=== PATIENT | female | born 1945 | race Caucasian/White ===

== ENCOUNTER 2020-01-20 11:54 | Outpatient (CLI) | payer OTHER, MEDICARE, SELFPAY ==
--- NOTE | ~2020-01-20 | XR_ITS ---
XR forearm RT 2V DATE: 01/20/2020 13:11 INDICATION: Injury, pain TECHNIQUE: AP and lateral views COMPARISON: None FINDINGS: There are osteoarthritic changes at the elbow joint. No fracture or dislocation, periosteal reaction or bone destruction of the radius or ulna is detected. There is osteoarthritis at the first carpometacarpal joint. IMPRESSION: Osteoarthritis of the elbow joint No fracture or dislocation of the forearm Reviewed, dictated and finalized at location B.
--- NOTE | ~2020-01-20 | XR_ITS ---
XR elbow RT min 3V DATE: 01/20/2020 13:11 INDICATION: Right elbow injury, pain TECHNIQUE: 4 views COMPARISON: None FINDINGS: There is elevation of the anterior and posterior fat pads consistent with joint effusion. There is osteoarthritic change at the elbow joint. No recent fracture or any dislocation is detected. IMPRESSION: Elbow joint effusion; no apparent recent fracture Osteoarthritis Reviewed, dictated and finalized at location B.
== END 2020-01-20 11:55 | disposition home or self-care (01) ==
PROVIDERS: PCP Family Medicine; Visit Provider Family Medicine
DX: S49.90XA Unspecified injury of shoulder and upper arm, unspecified arm, initial encounter (principal); X58.XXXA Exposure to other specified factors, initial encounter; M19.021 Primary osteoarthritis, right elbow
CPT/HCPCS: 73080; 73090

== ENCOUNTER 2020-07-02 09:06 | Outpatient (CLI) | payer MEDICARE, SELFPAY ==
[2020-07-02 09:35] LABS: Basophils Absolute Auto 0.1 K/mm3 (0.0-0.1); Basophils Percent Auto 0.6 % (0.2-1.2); Eosinophils Absolute Auto 0.2 K/mm3 (0-0.3); Eosinophils Percent Auto 1.8 % (0-4.4); Hematocrit 38.7 % (37.0-47.0); Hemoglobin 12.5 g/dL (12.0-15.0); Immature Granulocyte Absolute 0.02 K/mm3 (0.00-0.031); Immature Granulocyte Percent A 0.2 % (0-0.5); Lymphocytes Absolute Auto 2.02 K/mm3 (0.9-3.2); Lymphocytes Percent Auto 23.6 % (18.3-44.2); Mean Corpuscular HGB Conc 32.3 g/dl (32-36); Mean Corpuscular Hemoglobin 30.9 pg (26-34); Mean Corpuscular Volume 95.8 fl (80-100); Mean Platelet Volume 9.2 fl (7.4-10.4); Monocytes Absolute Auto 0.8 K/mm3 (0.1-0.6); Monocytes Percent Auto 9.3 % (2.6-8.5); Neutrophils Absolute Auto 5.5 K/mm3 (1.3-6.7); Neutrophils Percent Auto 64.5 % (45.5-73.1); Platelet Count Result 235 k/mm3 (150-375); Red Blood Count 4.04 M/mm3 (4.2-5.4); Red Cell Distribution Width 13.6 % (11.5-14.5); White Blood Count 8.6 K/mm3 (4.5-10.0)
[2020-07-02 09:48] LABS: Alanine Aminotransferase 18 U/L (4-35); Albumin Level 4.2 g/dL (3.5-5.1); Alkaline Phosphatase 71 U/L (38-126); Anion Gap 7 mmol/L (8-16); Aspartate Amino Transferase 33 U/L (14-36); Bilirubin,Total 0.9 mg/dL (0.2-1.3); Blood Urea Nitrogen 20 mg/dL (7-17); Calcium 9.5 mg/dL (8.4-10.2); Carbon Dioxide 28 mmol/L (22-30); Chloride 103 mmol/L (98-107); Estimated Glomerular Filt Rate 54; Glucose 109 mg/dL (65-105); Potassium 4.4 mmol/L (3.4-5.0); Sodium 138 mmol/L (137-145)
[2020-07-02 10:18] LABS: Total Triiodothyronine (T3) 0.83 NG/ML (0.97-1.69)
[2020-07-02 10:32] LABS: Free T4 Free Thyroxine 1.13 ng/mL (0.78-2.19)
== END 2020-07-02 09:07 | disposition home or self-care (01) ==
PROVIDERS: PCP Family Medicine; Visit Provider Family Medicine
DX: E03.9 Hypothyroidism, unspecified (principal); I10 Essential (primary) hypertension
CPT/HCPCS: 36415; 80053; 84439; 84443; 84480; 85025

== ENCOUNTER 2020-08-26 08:23 | Outpatient (CLI) | payer MEDICARE, SELFPAY ==
--- NOTE | ~2020-08-26 | XR_ITS ---
EXAMINATION:XR cervical spine 4-5V DATE: 08/26/2020 08:52 INDICATION: Neck pain TECHNIQUE: AP, lateral, lateral swimmers and odontoid views of the cervical spine are provided. COMPARISON: 08/09/2016 FINDINGS: There is 1 mm of anterolisthesis of C4 on C5. The odontoid is intact. No fracture is identi fied. The vertebral body heights are normal. There is mild loss of intervertebral disc space height a t C5-6. Small degenerative osteophytes project from the anterior endplates of multiple vertebral bodi es. There is moderate facet and uncovertebral joint osteoarthritis. Prevertebral soft tissues are nor mal. IMPRESSION: 1. Mild cervical spondylosis without acute findings or significant interval change. Reviewed, dictated and finalized at location A. IMPRESSION: 1. Mild cervical spondylosis without acute findings or significant interval mariam nge.
== END 2020-08-26 08:24 | disposition home or self-care (01) ==
LOC: ANHIMG 08:26
PROVIDERS: PCP Family Medicine; Visit Provider Family Medicine
DX: M47.22 Other spondylosis with radiculopathy, cervical region (principal)
CPT/HCPCS: 72050

== ENCOUNTER 2020-10-07 10:34 | Outpatient (CLI) | payer MEDICARE, SELFPAY ==
--- NOTE | 2020-10-07 12:00 | NEURO_ITS ---
Impression: # Complains of right forearm discomfort. # No Carpal Tunnel Syndrome or ulnar neuropathy. # Normal Nerve Conduction Study. # Normal needle/EMG exam. # Clinical correlation recommended; Findings could be suggestive of supracarpal tunnel median neuropathy. Nerve Conduction Studies Anti Sensory Summary Table Stim Site NR Peak (ms) P-T Amp (?V) Site1 Site2 Delta-P (ms) Dist (cm) Jonathan (m/s) Right Median Anti Sensory (2-3nd Digit) Wrist 3.9 46.9 Wrist 2-3nd Digit 3.9 14.0 36 Wrist 3.8 51.6 Wrist 2-3nd Digit 3.9 14.0 36 Right Radial Anti Sensory (Base 1st Digit) Wrist 2.9 23.9 Wrist Base 1st Digit 2.9 0.0 Right Ulnar Anti Sensory (5th Digit) Wrist 2.7 78.8 Wrist 5th Digit 2.7 14.0 52 Motor Summary Table Stim Site NR Onset (ms) O-P Amp (mV) Site1 Site2 Delta-0 (ms) Dist (cm) Jonathan (m/s) Right Median Motor (Abd Poll Brev) Wrist 3.7 6.0 Elbow Wrist 5.1 28.0 55 Elbow 8.8 5.8 Right Ulnar Motor (Abd Dig Minimi) Wrist 3.0 4.9 A Elbow Wrist 4.8 27.0 56 A Elbow 7.8 4.6 F Wave Studies NR F-Lat (ms) L-R F-Lat (ms) Right Median (Mrkrs) (Abd Poll Brev) 29.59 Right Ulnar (Mrkrs) (Abd Dig Min) 28.89 EMG Side Muscle Nerve Root Ins Act Fibs Amp Dur Recrt Comment Right 1stDorInt Ulnar C8-T1 Nml Nml Nml Nml Nml Right Ext Indicis Radial (Post Int) C7-8 Nml Nml Nml Nml Nml Right Ext Digitorum Radial (Post Int) C7-8 Nml Nml Nml Nml Nml Right BrachioRad Radial C5-6 Nml Nml Nml Nml Nml Right PronatorTeres Median C6-7 Nml Nml Nml Nml Nml Right Abd Poll Brev Median C8-T1 Nml Nml Nml Nml Nml MTDD
== END 2020-10-07 10:35 | disposition home or self-care (01) ==
PROVIDERS: PCP Family Medicine; Visit Provider Family Medicine
DX: S59.901D Unspecified injury of right elbow, subsequent encounter (principal); M79.631 Pain in right forearm
CPT/HCPCS: 95886; 95909

== ENCOUNTER 2020-10-24 20:29 | Emergency (ER) | payer MEDICARE, SELFPAY ==
[2020-10-24] VITALS (10 sets, daily range): BP systolic 136–207; BP diastolic 75–95; PULSE 60–96; RESP 14–21; TEMP 36.6–36.7; O2SAT 93–99
--- NOTE | ~2020-10-24 | XR_ITS ---
EXAMINATION: XR chest 2V EXAM DATE: 10/24/2020 21:22 INDICATION: Hypertension, coronary artery disease. TECHNIQUE: Frontal and lateral projections of the chest obtained and reviewed. Comparison is made to prior examination from 09/11/2009. FINDINGS: There is left costophrenic abnormal reticulation without confluent consolidation. Uncertain whether or not this is an acute interstitial type pneumonia, or chronic. No other regions of the dang g appear like this, and prior study from 2009 was unremarkable. There are no pleural effusions. The cardiomediastinal silhouette is within normal limits. There is no pneumothorax suspected. There are moderate-sized bridging mid to lower thoracic endplate osteophytes, diffuse idiopathic skeletal hype rostosis. IMPRESSION: Left costophrenic sulcus abnormal reticulation, acute versus chronic finding. Reviewed, dictated and finalized at location G. IMPRESSION: Left costophrenic sulcus abnormal reticulation, acute versus chroni c finding.
--- NOTE | 2020-10-24 20:34 | ECG_ITS ---
Measurements Intervals [place] Rate: 63 P: 3 AL: 212 QRS: -18 QRSD: 111 T: 15 QT: 387 QTc: 398 Interpretive Statements SINUS RHYTHM WITH FIRST DEGREE AV BLOCK INTRAVENTRICULAR CONDUCTION DELAY DELAYED PRECORDIAL R/S TRANSITION VOLTAGE CRITERIA FOR LVH BASELINE ARTIFACT- I, II, III, AVR, AVL, AVF, V6 ABNORMAL ECG Electronically Signed On 10-24-2020 21:18:46 CDT by Deejay Stokes D.O.
[2020-10-24 21:30] LABS: Basophils Percent Auto 0.2 % (0.2-1.2); Eosinophils Absolute Auto 0.1 K/mm3 (0-0.3); Hematocrit 37.5 % (37.0-47.0); Hemoglobin 12.8 g/dL (12.0-15.0); Immature Granulocyte Absolute 0.02 K/mm3 (0.00-0.031); Immature Granulocyte Percent A 0.2 % (0-0.5); Lymphocytes Absolute Auto 2.35 K/mm3 (0.9-3.2); Lymphocytes Percent Auto 27.1 % (18.3-44.2); Mean Corpuscular HGB Conc 34.1 g/dl (32-36); Mean Corpuscular Hemoglobin 31.2 pg (26-34); Mean Corpuscular Volume 91.5 fl (80-100); Mean Platelet Volume 8.3 fl (7.4-10.4); Monocytes Percent Auto 11.1 % (2.6-8.5); Neutrophils Absolute Auto 5.2 K/mm3 (1.3-6.7); Neutrophils Percent Auto 60.4 % (45.5-73.1); Platelet Count Result 251 k/mm3 (150-375); Red Cell Distribution Width 12.2 % (11.5-14.5); White Blood Count 8.7 K/mm3 (4.5-10.0)
[2020-10-24 21:40] LABS: Anion Gap 8 mmol/L (8-16); Blood Urea Nitrogen 20 mg/dL (7-17); Calcium 9.3 mg/dL (8.4-10.2); Carbon Dioxide 28 mmol/L (22-30); Chloride 88 mmol/L (98-107); Estimated Glomerular Filt Rate 48; Glucose 118 mg/dL (65-105); Sodium 124 mmol/L (137-145)
[2020-10-24 22:08] LABS: Add Urine Microscopic? YES; Appearance Urine Clear (Clear); Bacteria Urine Trace /hpf; Bilirubin Urine Negative (Negative); Blood Urine 1+ (Negative); Color Urine Straw (Yellow); Glucose Urine UA Negative (Negative); Ketones Urine Negative (Negative); Leukocyte Esterase Ur 1+ LEU/UL (Negative); Nitrate Urine Negative (Negative); Protein Urine 1+ mg/dL (Negative); RBC Urine 0-2 /hpf (0-2); Specific Grav Ur 1.006 (1.001-1.035); Squamous Epithelial Cell Urine Occasional /hpf (Few); Urobilinogen Urine Negative mg/dL (<2.0)
--- NOTE | 2020-10-24 23:10 | ED.GENADULT ---
HPI - General Adult General Chief complaint: Recheck/Abnormal Lab/Rx Stated complaint: htn Time Seen by Provider: 10/24/20 20:31 History of Present Illness HPI narrative: Patient is a 75-year-old female who presents to the ER with complaint of feeling fuzzy in the head. She reports has been ongoing for 3 weeks. No aggravating or alleviating factors. She is also noted today that her blood pressure has been elevated. She takes carvedilol as well as irbesartan with HCTZ. She reports compliance to medication. No chest pain or chest pressure. No loss of consciousness or focal weakness in arm or leg. Reports sometimes she has difficulty remembering things when filling out paperwork since the fuzziness started. Related Data Home Medications Medication Instructions Recorded Confirmed aspirin 81 mg tablet,delayed 81 mg PO DAILY 04/18/19 10/12/20 release cholecalciferol (vitamin D3) 50 2,000 unit PO DAILY 04/18/19 10/12/20 mcg (2,000 unit) tablet blood sugar diagnostic #10 ea 03/24/20 10/12/20 Allergies Allergy/AdvReac Type Severity Reaction Status Date / Time No Known Allergies Allergy Verified 10/24/20 20:36 Review of Systems Review of Systems: All systems reviewed & are unremarkable except as noted in HPI and below Constitutional: Constitutional: Denies chills, Denies fever(s) and Denies weakness ENT: Denies nasal congestion and Denies sore throat Cardiovascular: Cardiovascular: Denies chest pain and Denies radiating jaw, neck or arm pain Respiratory: Respiratory: Denies cough and Denies dyspnea Neurologic: Denies syncope, Denies focal weakness and Denies numbness [facility] Past Medical History Medical History (Updated 10/24/20 @ 23:14 by Destin Martinez MD) Benign essential HTN Biceps rupture, proximal CAD (coronary artery disease) Chronic insomnia 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 KWADWO (generalized anxiety disorder) Hypothyroidism, unspecified Kidney stones Lateral epicondylitis of right elbow Left knee pain Neck pain Rectal bleeding Upper respiratory infection Surgical History Surgical History H/O partial nephrectomy H/O Spinal surgery History of appendectomy History of total knee arthroplasty Hx of tonsillectomy Family History Family History Sibling Hypertension Family history of diabetes mellitus in first degree relative Other Family history of kidney disease Social History Social History Social History: Second hand tobacco smoke exposure: No Alcohol intake: never Substance use: never Substance use type: does not use Gender identity (if verbalized by the patient): Female Exam Narrative: Exam Narrative: GENERAL: Well-appearing, well-nourished, and in no acute distress. HEAD: Normocephalic, atraumatic ENT: Mucous membranes moist. CHEST: Clear to auscultation. No respiratory distress. HEART: Regular rate and rhythm. Normal peripheral pulses. ABDOMEN: Soft, nontender, nondistended. EXTREMITIES: Normal range of motion. No edema. SKIN: Warm, dry, no rash. NEURO: No focal deficits. Alert and oriented x3. PSYCH: Normal mood and affect. Course Course Emergency Course: Unremarkable evaluation. Blood pressure normalized while in the ER. Discharge home. Vital Signs Vital signs: Vital Signs Temperature 98.0 F 10/24/20 20:27 Pulse Rate 67 10/24/20 20:27 Respiratory Rate 20 10/24/20 20:27 Pulse Oximetry 96 10/24/20 20:27 Temperature 98.0 F 10/24/20 20:33 Pulse Rate 61 10/24/20 22:31 Respiratory Rate 19 10/24/20 22:31 Blood Pressure 159/79 H 10/24/20 22:31 Pulse Oximetry 97 10/24/20 22:31 Medical Decision Making Vital Signs Vital Signs: Vital Signs Temperature 98.0 F 10/24/20 20:27 Pulse Rate 67 10/24/20 20:27 Res
== END 2020-10-25 00:02 | disposition home or self-care (01) ==
PROVIDERS: Emergency Provider Emergency Medicine; PCP Family Medicine
DX: I10 Essential (primary) hypertension (principal); I25.10 Atherosclerotic heart disease of native coronary artery without angina pectoris; E03.9 Hypothyroidism, unspecified; Z79.82 Long term (current) use of aspirin
CPT/HCPCS: 36415; 71046; 80048; 81001; 85025; 93005; 99283

== ENCOUNTER 2020-11-10 11:37 | Outpatient (CLI) | payer MEDICARE, SELFPAY ==
[2020-11-10 12:35] LABS: Anion Gap 6 mmol/L (8-16); Blood Urea Nitrogen 24 mg/dL (7-17); Calcium 9.5 mg/dL (8.4-10.2); Carbon Dioxide 28 mmol/L (22-30); Chloride 95 mmol/L (98-107); Estimated Glomerular Filt Rate 44; Glucose 117 mg/dL (65-110); Potassium 4.8 mmol/L (3.4-5.0); Sodium 129 mmol/L (137-145)
== END 2020-11-10 11:38 | disposition home or self-care (01) ==
PROVIDERS: PCP Family Medicine; Visit Provider Family Medicine
DX: E87.1 Hypo-osmolality and hyponatremia (principal)
CPT/HCPCS: 36415; 80048

== ENCOUNTER 2020-11-23 10:22 | Outpatient (CLI) | payer MEDICARE, SELFPAY ==
[2020-11-23 11:07] LABS: Anion Gap 9 mmol/L (8-16); Blood Urea Nitrogen 26 mg/dL (7-17); Calcium 9.5 mg/dL (8.4-10.2); Carbon Dioxide 24 mmol/L (22-30); Chloride 105 mmol/L (98-107); Estimated Glomerular Filt Rate 44; Glucose 104 mg/dL (65-110); Potassium 4.8 mmol/L (3.4-5.0); Sodium 138 mmol/L (137-145)
[2020-11-23 12:16] LABS: Sodium Urine Random 47 meq/L
== END 2020-11-23 10:23 | disposition home or self-care (01) ==
PROVIDERS: Physician Assistant; PCP Family Medicine; Visit Provider Family Medicine
DX: E87.1 Hypo-osmolality and hyponatremia (principal)
CPT/HCPCS: 36415; 80048; 84300

== ENCOUNTER → 2020-12-03 16:08 | Outpatient (CLI) | payer MEDICARE, SELFPAY ==
--- NOTE | ~2020-12-03 | MR_ITS ---
EXAMINATION: MR cervical spine wo con DATE: 12/03/2020 17:36 INDICATION: Cervicalgia TECHNIQUE: Magnetic resonance imaging (MRI) of the cervical spine was performed without intravenous c ontrast. Sequences included sagittal T2-weighted FSE, sagittal T2-weighted FS FSE, sagittal T1-weight ed FSE, axial MERGE and axial T2-weighted FSE. COMPARISON: None FINDINGS: Straightening of the normal cervical lordosis. Vertebral body heights are normal. Bone marrow signa l intensity is normal. Mild disc height loss at C5-C6. There are anterior endplate osteophytes throug hout the cervical spine. Cord signal intensity is normal. Cervical soft tissues unremarkable. The fol lowing disc levels are specifically discussed: C2-C3: The disc does not extend beyond the endplate margin. There is no uncovertebral joint osteoarth ritis. There is mild right and severe left facet joint osteoarthritis. There is mild left neural fora pia stenosis. There is no central canal stenosis. C3-C4: The disc does not extend beyond the endplate margin. There is mild right uncovertebral joint o steoarthritis. There is old right and moderate left facet joint osteoarthritis. There is mild left ne ural foraminal stenosis. There is no central canal stenosis. C4-C5: The disc does not extend beyond the endplate margin. There is mild bilateral uncovertebral maeve nt osteoarthritis. There is mild to moderate right and severe left facet joint osteoarthritis. There is mild left neural foraminal stenosis. There is no central canal stenosis. C5-C6: Disc is mildly bulging. There is moderate right and severe left uncovertebral joint osteoarthr itis. There is moderate bilateral facet joint osteoarthritis. There is mild right and mild to moderat e left neural foraminal stenosis. There is mild central canal stenosis. C6-C7: Disc is mildly bulging. There is moderate bilateral uncovertebral joint osteoarthritis. There is mild bilateral facet joint osteoarthritis. There is no neural foraminal stenosis. There is mild ce ntral canal stenosis. C7-T1: The disc does not extend beyond the endplate margin. There is no uncovertebral joint osteoarth ritis. There is mild left and moderate right facet joint osteoarthritis. There is mild right neural f oraminal stenosis. There is no central canal stenosis. IMPRESSION: 1. Mild to moderate cervical spondylosis. Reviewed, dictated and finalized at location A.
== END ==
PROVIDERS: Visit Provider Nurse Practitioner Family
DX: M47.813 Spondylosis without myelopathy or radiculopathy, cervicothoracic region (principal); M48.03 Spinal stenosis, cervicothoracic region
CPT/HCPCS: 72141

== ENCOUNTER 2021-02-10 09:56 | Outpatient (CLI) | payer MEDICARE, SELFPAY ==
--- NOTE | ~2021-02-10 | US_ITS ---
EXAMINATION: US carotid duplex BI DATE: 02/10/2021 10:25 INDICATION: Dizziness and giddiness TECHNIQUE: Grayscale, color Doppler, and pulsed Doppler images of the cervical carotid arteries were obtained. The degree of vessel stenosis is placed in one of the following categories: normal, <50%, 5 0-69%, >=70% but less than near-occlusion, near-occlusion, or total occlusion. Note that percent sten osis relative to normal distal artery lumen diameter is indirectly measured from velocity measurement s as described by Nico, et al. Radiology 2003; 229:340-346. Notes: Normal: Peak systolic velocity <125 centimeters/sec and no plaque <50%. Peak systolic velocity <125 ( EDV <40; ICA/CCA PSV ratio <2.0; used these factors only a tandem lesions or low cardiac output or co ntralateral disease) 50-69 %: PSV 125-230 (EDV 40-100; ratio 2-4) >= 70% but less than near occlusion: PSV greater than 230 (EDV > 100; ratio> 4.0) Near Occlusion: PSV that is variable; markedly narrowed lumen Occlusion: Absent flow on color/spectral Doppler and no lumen on min scale. COMPARISON: None. FINDINGS: RIGHT: The right common carotid artery (CCA) peak systolic velocity (PSV) is 77 cm/s. The right internal car otid artery (ICA) PSV is 73 cm/s. The right ICA end-diastolic velocity (EDV) is 25 cm/s. The right IC A/CCA PSV ratio is 0.9. The external carotid artery (ECA) PSV is 52 cm/s. There is antegrade flow in the right vertebral artery. LEFT: The left CCA PSV is 60 cm/s. The left ICA PSV is 53 cm/s. The left ICA EDV is 22 cm/s. The left ICA/C CA PSV ratio is 0.9. The ECA PSV is 62 cm/s. There is antegrade flow in the left vertebral artery. IMPRESSION: 1. Less than 50% stenosis in the right internal carotid artery by sonographic criteria. 2. Less than 50% stenosis in the left internal carotid artery by sonographic criteria. Reviewed, dictated and finalized at location B. IMPRESSION: 1. Less than 50% stenosis in the right internal carotid artery by sonographic c yosvany. 2. Less than 50% stenosis in the left internal carotid artery by sonographic cr elsa.
== END 2021-02-10 09:57 | disposition home or self-care (01) ==
LOC: ANHIMG 09:58
PROVIDERS: PCP Family Medicine; Visit Provider Family Medicine
DX: R09.89 Other specified symptoms and signs involving the circulatory and respiratory systems (principal); R42 Dizziness and giddiness; I65.23 Occlusion and stenosis of bilateral carotid arteries
CPT/HCPCS: 93880

== ENCOUNTER 2021-07-10 07:09 | Outpatient (CLI) | payer MEDICARE, SELFPAY ==
[2021-07-10 07:28] LABS: Basophils Percent Auto 0.6 % (0.2-1.2); Eosinophils Absolute Auto 0.1 K/mm3 (0-0.3); Hematocrit 39.8 % (37.0-47.0); Hemoglobin 12.7 g/dL (12.0-15.0); Immature Granulocyte Absolute 0.02 K/mm3 (0.00-0.031); Immature Granulocyte Percent A 0.3 % (0-0.5); Lymphocytes Absolute Auto 1.66 K/mm3 (0.9-3.2); Lymphocytes Percent Auto 25.7 % (18.3-44.2); Mean Corpuscular HGB Conc 31.9 g/dl (32-36); Mean Corpuscular Hemoglobin 30.8 pg (26-34); Mean Corpuscular Volume 96.6 fl (80-100); Mean Platelet Volume 8.7 fl (7.4-10.4); Monocytes Absolute Auto 0.6 K/mm3 (0.1-0.6); Monocytes Percent Auto 9.1 % (2.6-8.5); Neutrophils Percent Auto 62.3 % (45.5-73.1); Platelet Count Result 248 k/mm3 (150-375); Red Blood Count 4.12 M/mm3 (4.2-5.4); Red Cell Distribution Width 13.3 % (11.5-14.5); White Blood Count 6.5 K/mm3 (4.5-10.0)
[2021-07-10 07:43] LABS: Alanine Aminotransferase 17 U/L (4-35); Albumin Level 4.4 g/dL (3.5-5.1); Alkaline Phosphatase 58 U/L (38-126); Anion Gap 6 mmol/L (8-16); Aspartate Amino Transferase 37 U/L (14-36); Bilirubin,Total 0.8 mg/dL (0.2-1.3); Blood Urea Nitrogen 34 mg/dL (7-17); Calcium 9.1 mg/dL (8.4-10.2); Carbon Dioxide 29 mmol/L (22-30); Chloride 100 mmol/L (98-107); Estimated Glomerular Filt Rate 54; Glucose 104 mg/dL (65-110); Potassium 4.2 mmol/L (3.4-5.0); Sodium 135 mmol/L (137-145)
[2021-07-10 08:11] LABS: Total Triiodothyronine (T3) 0.84 NG/ML (0.97-1.69)
[2021-07-10 08:15] LABS: Free T4 Free Thyroxine 1.15 ng/mL (0.78-2.19)
== END 2021-07-10 07:10 | disposition home or self-care (01) ==
LOC: ANHLAB 07:12
PROVIDERS: PCP Family Medicine; Visit Provider Nurse Practitioner Gerontology
DX: J06.9 Acute upper respiratory infection, unspecified (principal); I10 Essential (primary) hypertension; D64.9 Anemia, unspecified
CPT/HCPCS: 36415; 80053; 84439; 84443; 84480; 85025

== ENCOUNTER 2021-08-06 07:00 | Outpatient (CLI) | payer MEDICARE, SELFPAY ==
[2021-08-06 07:42] LABS: Alanine Aminotransferase 15 U/L (4-35); Albumin Level 4.4 g/dL (3.5-5.1); Alkaline Phosphatase 61 U/L (38-126); Anion Gap 7 mmol/L (8-16); Aspartate Amino Transferase 32 U/L (14-36); Bilirubin,Total 0.6 mg/dL (0.2-1.3); Blood Urea Nitrogen 33 mg/dL (7-17); Calcium 9.3 mg/dL (8.4-10.2); Carbon Dioxide 28 mmol/L (22-30); Chloride 101 mmol/L (98-107); Estimated Glomerular Filt Rate 54; Glucose 103 mg/dL (65-110); Potassium 4.1 mmol/L (3.4-5.0); Sodium 136 mmol/L (137-145)
[2021-08-06 08:13] LABS: Total Triiodothyronine (T3) 0.84 NG/ML (0.97-1.69)
== END 2021-08-06 07:01 | disposition home or self-care (01) ==
LOC: ANHLAB 07:01
PROVIDERS: PCP Family Medicine; Visit Provider Nurse Practitioner Gerontology
DX: E03.9 Hypothyroidism, unspecified (principal); N18.32 Chronic kidney disease, stage 3b
CPT/HCPCS: 36415; 80053; 84439; 84443; 84480

== ENCOUNTER 2021-09-03 06:43 | Outpatient (CLI) | payer MEDICARE, SELFPAY ==
[2021-09-03 08:38] LABS: Alanine Aminotransferase 15 U/L (6-35); Albumin Level 4.6 g/dL (3.5-5.1); Alkaline Phosphatase 64 U/L (38-126); Anion Gap 9 mmol/L (8-16); Aspartate Amino Transferase 32 U/L (14-36); Bilirubin,Total 0.9 mg/dL (0.2-1.3); Blood Urea Nitrogen 32 mg/dL (7-17); Calcium 9.4 mg/dL (8.4-10.2); Carbon Dioxide 29 mmol/L (22-30); Chloride 98 mmol/L (98-107); Estimated Glomerular Filt Rate 54; Glucose 95 mg/dL (65-110); Sodium 136 mmol/L (137-145)
[2021-09-03 09:06] LABS: Free T4 Free Thyroxine 1.57 ng/mL (0.78-2.19)
[2021-09-03 09:09] LABS: Total Triiodothyronine (T3) 0.79 NG/ML (0.97-1.69)
[2021-09-07 14:50] LABS: Vitamin D 1,25 (OH)2 Total 28 pg/mL (18-72); Vitamin D2 1,25 (OH)2 <8 pg/mL; Vitamin D3 1,25 (OH)2 28 pg/mL
== END 2021-09-03 06:44 | disposition home or self-care (01) ==
LOC: ANHLAB 06:47
PROVIDERS: PCP Family Medicine; Visit Provider Nurse Practitioner Gerontology
DX: D64.9 Anemia, unspecified (principal); E87.1 Hypo-osmolality and hyponatremia; I10 Essential (primary) hypertension; E03.9 Hypothyroidism, unspecified; E55.9 Vitamin D deficiency, unspecified
CPT/HCPCS: 36415; 80053; 82652; 84439; 84443; 84480

== ENCOUNTER 2021-09-17 14:29 | Outpatient (CLI) | payer MEDICARE, SELFPAY ==
--- NOTE | ~2021-09-17 | MR_ITS ---
EXAMINATION: MR brain/brain stem wo/w con DATE: 09/17/2021 15:15 INDICATION: Disorientation, unspecified. TECHNIQUE: Magnetic resonance imaging (MRI) of the brain and brainstem was performed without and with 19 mL MultiHance intravenous contrast. COMPARISON: None. FINDINGS: There are scattered areas of nonspecific increased T2-weighted signal intensity in the cere bral white matter and sheri, which is within normal limits for the patient's age. There is no intracr anial hemorrhage, acute infarction, or abnormal intracranial mass lesion. The ventricles are normal i n size. The paranasal sinuses are clear. There are likely changes of ocular lens replacement surgerie s. There are tiny bilateral mastoid effusions. IMPRESSION: 1. Normal aging brain. Reviewed, dictated and finalized at location A. IMPRESSION: 1. Normal aging brain.
== END 2021-09-17 14:30 | disposition home or self-care (01) ==
LOC: ANHIMG 14:36
PROVIDERS: PCP Family Medicine; Visit Provider Nurse Practitioner Gerontology
DX: R41.0 Disorientation, unspecified (principal)
CPT/HCPCS: 70553; A9577

== ENCOUNTER 2021-09-28 08:44 | Outpatient (CLI) | payer MEDICARE, SELFPAY ==
--- NOTE | ~2021-09-28 | XR_ITS ---
XR hand LT 2V DATE: 09/28/2021 09:02 INDICATION: Smashed hand. First through third metacarpal bruising. TECHNIQUE: AP and lateral views COMPARISON: None FINDINGS: No fracture or dislocation is evident. There is polyarticular osteoarthritis involving firs t carpometacarpal and multiple interphalangeal joints. No erosive change or chondrocalcinosis is note d. No periosteal reaction or bone destruction. IMPRESSION: No fracture or dislocation Reviewed, dictated and finalized at location A. IMPRESSION: No fracture or dislocation
== END 2021-09-28 08:45 | disposition home or self-care (01) ==
PROVIDERS: PCP Family Medicine; Visit Provider Nurse Practitioner Gerontology
DX: M79.642 Pain in left hand (principal)
CPT/HCPCS: 73120

== ENCOUNTER 2022-01-20 07:52 | Outpatient (CLI) | payer MEDICARE, SELFPAY ==
[2022-01-20 08:27] LABS: Basophils Absolute Auto 0.1 K/mm3 (0.0-0.1); Basophils Percent Auto 0.9 % (0.2-1.2); Eosinophils Absolute Auto 0.2 K/mm3 (0-0.3); Hematocrit 38.2 % (37.0-47.0); Hemoglobin 12.8 g/dL (12.0-15.0); Immature Granulocyte Absolute 0.01 K/mm3 (0.00-0.031); Immature Granulocyte Percent A 0.2 % (0-0.5); Lymphocytes Absolute Auto 1.54 K/mm3 (0.9-3.2); Lymphocytes Percent Auto 28.4 % (18.3-44.2); Mean Corpuscular HGB Conc 33.5 g/dl (32-36); Mean Corpuscular Volume 95.5 fl (80-100); Mean Platelet Volume 8.7 fl (7.4-10.4); Monocytes Absolute Auto 0.6 K/mm3 (0.1-0.6); Monocytes Percent Auto 10.3 % (2.6-8.5); Neutrophils Absolute Auto 3.1 K/mm3 (1.3-6.7); Neutrophils Percent Auto 57.2 % (45.5-73.1); Platelet Count Result 253 k/mm3 (150-375); Red Cell Distribution Width 13.6 % (11.5-14.5); White Blood Count 5.4 K/mm3 (4.5-10.0)
[2022-01-20 08:37] LABS: Alanine Aminotransferase 20 U/L (6-35); Albumin Level 4.3 g/dL (3.5-5.1); Alkaline Phosphatase 61 U/L (38-126); Anion Gap 10 mmol/L (8-16); Aspartate Amino Transferase 30 U/L (14-36); Blood Urea Nitrogen 30 mg/dL (7-17); Calcium 9.6 mg/dL (8.4-10.2); Carbon Dioxide 26 mmol/L (22-30); Chloride 96 mmol/L (98-107); Cholesterol 157 mg/dL (0-200); Estimated Glomerular Filt Rate 54; Glucose 104 mg/dL (65-110); HDL Direct 59 mg/dL; Potassium 4.4 mmol/L (3.4-5.0); Sodium 132 mmol/L (137-145); Triglycerides 92 mg/dL (<150)
[2022-01-20 08:48] LABS: LDL Cholesterol Direct 68 mg/dL
== END 2022-01-20 07:53 | disposition home or self-care (01) ==
PROVIDERS: PCP Family Medicine; Visit Provider Physician Assistant
DX: I25.10 Atherosclerotic heart disease of native coronary artery without angina pectoris (principal); I10 Essential (primary) hypertension; E03.9 Hypothyroidism, unspecified
CPT/HCPCS: 36415; 80053; 80061; 84443; 85025

== ENCOUNTER 2022-07-19 10:41 | Outpatient (CLI) | payer MEDICARE, SELFPAY ==
--- NOTE | ~2022-07-19 | XR_ITS ---
Supine and upright views of the abdomen Clinical history: Renal stones Findings: Bowel gas pattern is nonspecific. No evidence for obstruction or free air. No abnormal mass lesion or calcification is seen. Osseous structures are intact. Impression: No significant abnormality is seen. Reviewed, dictated and finalized at [facility]. Impression: No significant abnormality is seen.
== END 2022-07-19 10:42 | disposition home or self-care (01) ==
LOC: ANHIMG 10:51
PROVIDERS: PCP Family Medicine; Visit Provider Nurse Practitioner Gerontology
DX: R35.0 Frequency of micturition (principal); Z87.442 Personal history of urinary calculi
CPT/HCPCS: 74018

== ENCOUNTER 2023-02-08 00:49 | Day surgery (SDC) | payer MEDICARE, SELFPAY ==
[2023-01-24 11:41] VITALS: BMI 24.3
--- NOTE | 2023-02-07 13:06 | PM.HPGS ---
History of Present Illness History of Present Illness Consent: Risks, benefits, and alternatives have been discussed and questions answered. Patient agrees to proceed with procedure. Chief complaint: Epigastric pain Narrative: Kaylie Logan is a 77 year old female referred for upper endoscopy due to Cultures with swallowing. She states that her main issue was that her mouth is extremely dry. She wakes up at night due to the dryness. She has seen 2 ENT physicians who cannot determine what is wrong. She has some difficulty with swallowing, usually a piece of lettuce which might get caught in the back of her mouth. She will then need to spit it out. She denies difficulty swallowing very meals or anything that would be a food impaction. She denies heartburn nausea or vomiting. She denies any abdominal pain. 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 Depression Dizziness Elbow injury Elbow pain Fall KWADWO (generalized anxiety disorder) Hand pain Hand weakness Hearing loss Hypothyroidism, unspecified Kidney stones Lateral epicondylitis of right elbow Left knee pain Neck pain Osteoporosis Pes planus of right foot Pneumonia Pneumonia of right lower lobe due to infectious organism Rectal bleeding Screening declined by patient Upper respiratory infection Wears glasses Surgical History Surgical History H/O partial nephrectomy H/O Spinal surgery History of appendectomy History of total knee arthroplasty Hx of tonsillectomy Family History Family History Sibling Hypertension Family history of diabetes mellitus in first degree relative Mother Depression Heart disease Thyroid disorder Other Arthritis Family history of kidney disease HLD (hyperlipidemia) Social History Social History Social History: Smoking status: Never smoker Second hand tobacco smoke exposure: No Alcohol intake: current Substance use: never Substance use type: does not use Lack of Transportation: No Lack of Food: Never True Current Housing: I Have Housing Concerned About Future Housing: No Difficulty Paying Gas/Electric Bills: No Difficulty Paying for Meds: No Currently Unemployed: No Education: High School Diploma/GED Difficulty w/ Childcare or Family Care: No Living arrangements: with family Occupation/Education: retired Gender identity (if verbalized by the patient): Female Sexual Orientation (if Verbalized by the Patient): Straight or Heterosexual Spiritual care concerns: No Meds Home Medications and Allergies Home Medications Medication Instructions Recorded Confirmed Type aspirin 81 mg tablet,delayed 81 mg PO HS 04/18/19 01/24/23 History release (Aspir-Low) cholecalciferol (vitamin D3) 50 2,000 unit PO HS 04/18/19 01/24/23 History mcg (2,000 unit) tablet levothyroxine 75 mcg tablet 75 mcg PO DAILY #90 tabs 11/14/22 01/24/23 Rx losartan 25 mg tablet 25 mg PO DAILY #90 tabs 12/12/22 01/24/23 Rx sodium chloride 1,000 mg soluble 1,000 mg PO DAILY #90 tabs 12/12/22 01/24/23 Rx tablet escitalopram oxalate 5 mg tablet 5 mg PO DAILY #90 tabs 01/06/23 01/24/23 Rx temazepam 30 mg capsule 30 mg PO .qhs #30 caps 01/12/23 01/24/23 Rx Equate Stool Softner 2 tab-cap PO PRN PRN Constipation 01/24/23 01/24/23 History Natrol Supplement 2 cap PO DAILY 01/24/23 01/24/23 History carvedilol 3.
[2023-02-08 06:22] VITALS: BP 104/72; PULSE 79; RESP 18; TEMP 36.1; O2SAT 94
[2023-02-08] MEDS: LACTATED RINGERS 1,000 ML 150 ML IV CONT (06:35)
--- NOTE | 2023-02-08 07:23 | WPDANESEPPF ---
Anes - Initial Pre Proc Eval Procedure: Operation Date: 02/08/23 07:30 Proposed Procedures p Esophagogastroduodenoscopy EGD - Jack Le MD Date/Time: 02/08/23 07:23 Surgeon: Jack Le MD Pre Op Diagnosis: Epigastric pain Patient Data Age: 77 Gender: F Height: 1.7 m Weight: 69.2 kg Last Vital Signs Temp 97 F L 02/08/23 06:22 Pulse 79 02/08/23 06:22 Resp 18 02/08/23 06:22 BP 104/72 02/08/23 06:22 Pulse Ox 94 02/08/23 06:22 O2 Del Method Room Air 02/08/23 06:22 Allergies Allergy/AdvReac Type Severity Reaction Status Date / Time pilocarpine Allergy Severe cold sweats Verified 02/08/23 06:20 Home Medications Medication Instructions Recorded Confirmed Type aspirin 81 mg tablet,delayed 81 mg PO HS 04/18/19 01/24/23 History release (Aspir-Low) cholecalciferol (vitamin D3) 50 2,000 unit PO HS 04/18/19 01/24/23 History mcg (2,000 unit) tablet levothyroxine 75 mcg tablet 75 mcg PO DAILY #90 tabs 11/14/22 01/24/23 Rx losartan 25 mg tablet 25 mg PO DAILY #90 tabs 12/12/22 01/24/23 Rx sodium chloride 1,000 mg soluble 1,000 mg PO DAILY #90 tabs 12/12/22 01/24/23 Rx tablet escitalopram oxalate 5 mg tablet 5 mg PO DAILY #90 tabs 01/06/23 01/24/23 Rx temazepam 30 mg capsule 30 mg PO .qhs #30 caps 01/12/23 01/24/23 Rx Equate Stool Softner 2 tab-cap PO PRN PRN Constipation 01/24/23 01/24/23 History Natrol Supplement 2 cap PO DAILY 01/24/23 01/24/23 History carvedilol 3.125 mg tablet 3.125 mg PO BID 01/24/23 01/24/23 History [id number] 8 mg-folic 400 1 tablet PO HS 01/24/23 01/24/23 History mcg-K 50 mcg-lutein 300 mcg tablet (Centrum Silver Women) polyethylene glycol 3350 17 17 g PO DAILY PRN Constipation 01/24/23 01/24/23 History gram/dose oral powder (Miralax) Laboratory Tests 02/08/23 07:08 Sodium Pending Potassium Pending Chloride Pending Carbon Dioxide Pending Anion Gap Pending BUN Pending Creatinine Pending Estim Creat Clear Calc Pending Estimated GFR Pending Glucose Pending Calcium Pending Patient hx anesthesia problems: none Family hx anesthesia problems: none Results Review: All pre-operative results and documents have been reviewed as part of the pre-operative evaluation. 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 Depression Dizziness Elbow injury Elbow pain Fall KWADWO (generalized anxiety disorder) Hand pain Hand weakness Hearing loss Hypothyroidism, unspecified Kidney stones Lateral epicondylitis of right elbow Left knee pain Neck pain Osteoporosis Pes planus of right foot Pneumonia Pneumonia of right lower lobe due to infectious organism Rectal bleeding Screening declined by patient Upper respiratory infection Wears glasses Surgical History Surgical History H/O partial nephrectomy H/O Spinal surgery History of appendectomy History of total knee arthroplasty Hx of tonsillectomy Family History Family History Sibling Hypertension Family history of diabetes mellitus in first degree relative Mother Depression Heart disease Thyroid disorder Other Arthritis Family history of kidney disease HLD (hyperlipidemia) Social History Social History Social History: Smoking status: Never smoker Second hand tobacco smoke exposure: No Alcohol intake: current Substance use: never Substance use type: does not use Lack of Transportation: No
[2023-02-08 07:33] LABS: Anion Gap 2 mmol/L (8-16); Blood Urea Nitrogen 23 mg/dL (7-17); Calcium 9.2 mg/dL (8.4-10.2); Carbon Dioxide 30 mmol/L (22-30); Chloride 99 mmol/L (98-107); Estimated CRCL calculation 63 ml/min; Estimated Glomerular Filt Rate > 60; Glucose 94 mg/dL (65-110); Potassium 3.9 mmol/L (3.4-5.0); Sodium 131 mmol/L (137-145)
[2023-02-08 08:09] VITALS: BP 117/56; PULSE 54; RESP 21; O2SAT 100
[2023-02-08 08:19] VITALS: BP 99/56; PULSE 63; RESP 20; O2SAT 100
[2023-02-08 08:29] VITALS: BP 130/70; PULSE 58; RESP 16; O2SAT 100
--- NOTE | 2023-02-08 10:35 | SUR.PHASEII ---
pradeepori was positive, dr cuevas informed and new orders written and printed out for pt.
== END 2023-02-08 08:52 | disposition home or self-care (01) ==
PROVIDERS: Anesthesiology; PCP Family Medicine; Visit Provider Internal Medicine Gastroenterology
PROC: 0DJ08ZZ Inspection of Upper Intestinal Tract, Via Natural or Artificial Opening Endoscopic (ICD-10-PCS; CPT 43235; principal; 2023-02-08 07:30)
DX: R13.12 Dysphagia, oropharyngeal phase (principal); R10.13 Epigastric pain; I10 Essential (primary) hypertension; I25.10 Atherosclerotic heart disease of native coronary artery without angina pectoris; F41.1 Generalized anxiety disorder; E03.9 Hypothyroidism, unspecified; M81.0 Age-related osteoporosis without current pathological fracture; Z79.82 Long term (current) use of aspirin
CPT/HCPCS: 43239; 36415; 80048; 87081; J2704; J7120

== ENCOUNTER 2024-06-06 00:14 | Day surgery (SDC) | payer MEDICARE, SELFPAY ==
[2024-05-20 13:51] VITALS: BMI 27.1
--- OUTSIDE RECORDS SUMMARY | 2024-06-06 00:18 | XMS_ITS | Referral Summary ---
Author Organization [facility] [address] Address [address] [place] [address] Care Team Providers Care Personal Financial Counselor Name Role Phone Gosia Bustamante MD Primary Care Provider Encounters Date Type Department Care Team Description 04/30/2024 Telephone [facility] Advanced Medicine [facility]) - [facility] ENT [address] [facility] [address] [place] [address] [place] [address] Seda Bacon MS from Last 3 Months Allergies No known active allergies Medications temazepam (RESTORIL) 30 mg capsule take 1 capsule by oral route every day at bedtime as needed 0 0 7 Active Additional Information Patient taking differently:30 mgoral Nightly, Indications: Insomnia, Informant: Self, Reported on 02/22/2023 cholecalciferol (VITAMIN D3) 2,000 unit capsule take 1 by Oral route once 0 0 7 Active Additional Information Patient taking differently: 2,000 Units oral Nightly, Indications: Vitamin D Deficiency, Informant: Self, Reported on 08/31/2023 carvedilol (COREG) 3.125 mg tabletIndicatio ns:hypertension Take 1 tablet (3.125 mg total) by mouth 2 (two) times a day with meals Active aspirin (ADULT LOW DOSE ASPIRIN) 81 mg tablet Take 1 tablet (81 mg total) by mouth daily. 9 Active Additional Information Patient taking differently:81 mg oralEvery morning, Stopped taking 08/28/23 to get ready for surgery., Indications: prevention of thrombosis, Informant: Self, Reported on 08/31/2023 sodium chloride 1,000 mg tabletIndicatio ns:For supplement Take 1 tablet (1 g total) by mouth every morning 3 Active multivitamin tabletIndicatio ns:Vitamin Deficiency Prevention Take 1 tablet by mouth nightly Active rosuvastatin (CRESTOR) 20 mg tablet Take 1 tablet (20 mg total) by mouth daily 90 tablet 3 4 06/20/19 25 Active Additional Information Patient taking differently:20 mg oralEvery morning, Indications: hyperlipidemia, Informant: Self, Reported on 08/31/2023 ibuprofen (ADVIL,MOTRIN) 400 mg tablet Take 1 tablet (400 mg total) by mouth every 6 (six) hours as needed for pain Active Active Problems Problem Noted Date Diagnosed Date SIADH (syndrome of inappropriate ADH production) 10/25/2023 Graves disease 05/30/2023 Overview (05/30/2023): Positive TSIg and anti-TPO Apr 2023 DEANA (obstructive sleep apnea) 02/17/2023 Osteoporosis 09/23/2022 Overview (09/23/2022): From outside notes Hyponatremia 08/16/2022 Episode of confusion 10/07/2021 Mixed hyperlipidemia 04/01/2021 Sensorineural hearing loss (SNHL) of both ears 1 Assessment & Plan (02/16/2021 9:51 AM CDT): [facility] - [facility] Will obtain imaging from [facility] from December 2019 Vestibular dysfunction of both ears 02/16/2021 Assessment & Plan (02/16/2021 12:22 PM CDT): Hearing test and Balance testing (VNG) - [facility] Will obtain imaging from [facility] from December 2019 Neck pain on right side 01/04/2021 Assessment & Plan (01/04/2021 3:24 PM CDT): Ms. 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 Will review MRI cervical spine with Dr. Quinn to further formulate plan of care. Right-sided low back pain without sciatica 01/04 Assessment & Plan (01/04/2021 3:27 PM CDT): Ms. Logan has right low back pain without radiating leg pain following a fall. She has tried and failed conservative treatment and is wanting to know what her surgical options are. Will review her MRI lumbar spine with Dr. Quinn to further formulate a plan of care. Explained the the patient, Dr. Quinn may suggest a BMI of less than or equal to 35 prior consideration of any lumbar surgery. MRI of lumbar/cervical and right elbow CDs is with chart. Bradycardia 11/25/2020 Nonrheumatic aortic valve stenosis 12/11/2018 Asymmetric septal hypertrophy 2018 Blood in stool 10/31/2017 Overview (10/31/2017): Added automatically from request for surgery [id number] Dizziness 10/18/2017 Labile essential hypertension 12/06/2016 Assessment & Plan (01/04/2021 3:29 PM CDT): Today's reading with automated machine: Left arm: 162/101 Repeat: 172/111 Instructed to call PCP to further discuss and to continue to monitor her home readings. Chronic fatigue 12/06/2016 Unknown and unspecified causes of morbidity 08/23 Overview (09/16/2016): Labile hypertension Coronary artery disease invo lving [place] coronary artery of [place] heart without angina pectoris 03/30/2016 Overview (07/28/2016): Coronary artery disease involving [place] coronary artery of [place] heart without angina pectoris Acute cystitis without hematuria 03/04/2016 Hypotension 03/04/2016 Hypothyroidism 03/04/2016 Benign hypertension 10/16/2015 Overview (07/28/2016): HTN (hypertension), benign PVC's (premature ventricular contractions) 10/15 Overview (07/29/2016): PVC's (premature ventricular contractions) Obesity with body mass index 30 or greater 10/15 Overview (07/29/2016): Obesity (BMI 35.0-39.9 without comorbidity) DEANA on CPAP 10/16/2015 Overview (07/29/2016): DEANA on CPAP Resolved Problems Problem Noted Date Diagnosed Date Resolved Date Coronary artery spasm 03/08/20162023 NSTEMI, initial episode of care ([facility]) 03/04/2016 10/07/2021 Dyslipidemia 10/16/2015 10/07/2021 Overview (07/29/2016): Mixed dyslipidemia Immunizations Name Administration Dates Next Due Influenza, Trivalent, Adjuva nted, Intramuscular 02/13/2019 Influenza, Trivalent, High D ose, Split, Preservative Free, Intramuscular 01/25/2017,01/22/2016,01/09/2015 Influenza, Trivalent, IM (MDV) 02/03/2018,2012 Pneumococcal Conjugate PCV 13 02/23/2017 Pneumococcal Polysaccharide PPV23 01/09/2015 ZOSTER LIVE 07/27/2014 Social History Tobacco Use Types Packs/Day Years Used Date Smoking Tobacco: Never Smokeless Tobacco: Never Tobacco Cessation:Counseling Given: Not Answered Alcohol Use Standard Drinks/Week Comments No 0 (1 standard drink = 0.6 oz pur e alcohol) AUDIT-C Answer Date Recorded Q1: How often do you have a drink containing alcohol? Never 09/13/2023 Q2: How many drinks containi ng alcohol do you have on a typical day when you are drinking? Patient does not drink Q3: How often do you have si x or more drinks on one occasion? Never 09/13/2023 PHQ-2 Answer Date Recorded PHQ-2 Total Score (If total score is 3 or more points, staff should administer the PHQ-9) 6 01/04/2021 Personal Safety Answer Date Recorded Have you ever been in or are you currently in a harmful physical or emotional relationship or is someone making you feel afraid or unsafe? 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 Gender Identity Not on file Sexual Orientation Not on file Occupation Industry Job Start Date Job End Date [employer] Not on file Not on file Not on file Last Filed Vital Signs Vital Sign Reading Time Taken Comments Blood Pressure 150/73 02/02/2024 8:21 AM CDT Pulse 62 02/02/2024 8:21 AM CDT Temperature 36.8 C (98.2 F) 01/31/2024 9:06 AM CDT Respiratory Rate 10 09/13/2023 2:30 PM CDT Oxygen Saturation 95% 02/02/2024 8:21 AM CDT Inhaled Oxygen Concentration - - Weight 73.5 kg (162 lb) 02/02/2024 8:21 AM CDT Height 172.7 cm (5' 8 ) 02/02/2024 8:21 AM CDT Body Mass Index 24.63 02/02/2024 8:21 AM CDT Plan of Treatment Not on file Medical Devices Implanted Type Area Market Maker Device Identifier Shelf Expiration Date Model / Serial / Lot [employer] Lead Neurostimulator Sleep Apnea Thoracic Permanent Respiratory Sensing Inspire 43cm 4340 - [id number] - [id number] Implanted:Qty: 1 on 09/13/2023 by Lizzy Lazaro MD at [facility] Right: Chest [employer] 01/30/2026 4340 / [id number] / [employer] Inspire 3 Electrode Cuff Tunnel Juan Lead Neurostimulator Sterile 4063 - [id number] - [id number] Implanted:Qty: 1 on 09/13/2023 by Lizzy Lazaro MD at [facility] Right: Neck [employer] 12/18/2025 4063 / [id number] / [employer] Inspire Generator 3028 - [id number] - [id number] Implanted:Qty: 1 on 09/13/2023 by Lizzy Lazaro MD at [facility] Right: Chest [employer] 07/28/2025 3028 / [id number] C / Insurance MEDICARE [place] [employer] [place] [id number] MEDICARE [place] [id number] MEDICARE Advance Directives For more information, please contact: [phone] * Full Code (Latest Code Status on File) Date Activated Date Inactivated Comments 12/08/2017 8:54 AM 12/08/2017 1:10 PM Care Teams Personal Financial Counselor Relationship Specialty Start Date End Date Gosia Bustamante MD [address] [place] [address] PCP - General 05/09/12
--- OUTSIDE RECORDS SUMMARY | 2024-06-06 00:18 | XMS_ITS | Encounter Summary ---
Author Organization [facility] Address [address] [place] [address] Phone Care Team Providers Care Powder Blender And Pourer Name Role Phone Gosia Bustamnate MD Primary Care Provider Encounter Details Date Type Department Care Team (Latest Contact Info) Description 10/28/2022 Orders Only [facility] Scanning, Provider Social History Tobacco Use Types Packs/Day Years Used Date Smoking Tobacco: Never Smokeless Tobacco: Never Alcohol Use Standard Drinks/Week Comments No 0 (1 standard drink = 0.6 oz pur e alcohol) PHQ-2 Answer Date Recorded PHQ-2 Total Score (If total score is 3 or more points, staff should administer the PHQ-9) 6 01/04/2021 Comments No Sex and Gender Information Value Date Recorded Sex Assigned at Not on file 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 Female 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 Gender Identity Not on file Sexual Orientation Not on file Occupation Industry Job Start Date Job End Date [employer] Not on file Not on file Not on file documented as of this encounter Plan of Treatment Not on file documented as of this encounter Procedures Procedure Name Priority Date/Time Associated Diagnosis Comments SCAN - LABS 10/28/2022 documented in this encounter Results * SCAN - LABS (10/28/2022) us Provider Scanning Edited Result - Final documented in this encounter Visit Diagnoses Not on filedocumented in this encounter Care Teams Powder Blender And Pourer Relationship Specialty Start Date End Date Gosia Bustamante MD [address] [facility] [address] [place] [id number] PCP - General 05/09/12 documented as of this encounter
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
--- OUTSIDE RECORDS SUMMARY | 2024-06-06 00:18 | XMS_ITS | Encounter Summary ---
Author Organization [facility] Address [address] [place] [address] Phone Care Team Providers Care Hydropress Operator Name Role Phone Gosia Bustamante MD Primary Care Provider Encounter Details Date Type Department Care Team (Latest Contact Info) Description 08/02/2023 Orders Only [facility] Scanning, Provider Social History Tobacco Use Types Packs/Day Years Used Date Smoking Tobacco: Never Cigarettes Smokeless Tobacco: Never Alcohol Use Standard Drinks/Week Comments No 0 (1 standard drink = 0.6 oz pur e alcohol) AUDIT-C Answer Date Recorded Q1: How often do you have a drink containing alcohol? Never 03/08/2023 Q2: How many drinks containi ng alcohol do you have on a typical day when you are drinking? Patient does not drink Q3: How often do you have si x or more drinks on one occasion? Never 03/08/2023 PHQ-2 Answer Date Recorded PHQ-2 Total Score (If total score is 3 or more points, staff should administer the PHQ-9) 6 01/04/2021 Personal Safety Answer Date Recorded Have you ever been in or are you currently in a harmful physical or emotional relationship or is someone making you feel afraid or unsafe? 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 Gender Identity Not on file Sexual Orientation Not on file Occupation Industry Job Start Date Job End Date [employer] Not on file Not on file Not on file documented as of this encounter Plan of Treatment Not on file documented as of this encounter Procedures Procedure Name Priority Date/Time Associated Diagnosis Comments SCAN - LABS 08/02/2023 documented in this encounter Results * SCAN - LABS (08/02/2023) us Provider Scanning Final Result documented in this encounter Visit Diagnoses Not on filedocumented in this encounter Care Teams Hydropress Operator Relationship Specialty Start Date End Date Gosia Bustamante MD [address] [facility] [address] [place] [address] PCP - General 05/09/12 documented as of this encounter
--- OUTSIDE RECORDS SUMMARY | 2024-06-06 00:18 | XMS_ITS | Clinical Summary ---
Author Organization [facility] [address] Address [address] [place] [address] Care Team Providers Care Import Coordinator Name Role Phone Gosia Bustamante MD Primary Care Provider Allergies No known active allergies Medications temazepam [...] (02/16/2021 9:51 AM CDT): Hearing test - [facility] Will obtain imaging from [facility] from December 2019 Vestibular dysfunction of both ears 02/16/2021 Assessment & Plan (02/16/2021 12:22 PM CDT): Hearing test and Balance testing (VNG) - [facility] Will obtain imaging from [facility] from December 2019 Neck pain on right side 01/04/2021 Assessment & Plan (01/04/2021 3:24 PM CDT): Ms. Logan has mostly axial right neck pain with some radiating pain in right upper extremity and weakness of her right hand hot walker. Will review MRI cervical spine with Dr. [...] (10/31/2017): Added automatically from request for surgery [id number] Dizziness 10/18/2017 Labile essential hypertension 12/06/2016 Assessment & Plan (01/04/2021 3:29 PM CDT): Today's reading with automated machine: Left arm: 162/101 Repeat: 172/111 Instructed to call PCP to further discuss and to continue to monitor her home readings. Chronic fatigue 12/06/2016 Unknown and unspecified causes of morbidity 08/23 Overview (09/16/2016): Labile hypertension Coronary artery disease invo lving steb[place] coronary artery of [place] heart without angina pectoris 03/30/2016 Overview (07/28/2016): Coronary artery disease involving stebbins coronary artery of stebbins heart without angina pectoris Acute cystitis without [...] spasm 03/08/20162023 NSTEMI, initial episode of care (CMS/HCC) 03/04/2016 10/07/2021 Dyslipidemia 10/16/2015 10/07/2021 Overview (07/29/2016): Mixed dyslipidemia Encounters Date Type Department Care Team Description 04/30/2024 Telephone [facility] ([facility]) [facility] [address] [facility] 11th [place] [address] [place] [address] Seda Bacon MS from Last 3 Months Immunizations Name Administration Dates Next Due Influenza, Trivalent, Adjuva nted, Intramuscular 02/13/2019 Influenza, Trivalent, High D ose, Split, Preservative Free, Intramuscular 01/25/2017,01/22/2016,01/09/2015 Influenza, Trivalent, IM (MDV) 02/03/2018,2012 Pneumococcal Conjugate PCV 13 02/23/2017 Pneumococcal Polysaccharide PPV23 01/09/2015 ZOSTER LIVE 07/27/2014 Surgical History Surgery Date Site/Laterality Comments TONSILLECTOMY as kid REPLACEMENT TOTAL KNEE Right KIDNEY STONE SURGERY 04/24/1985 - 04/23/1986 Open incision, with partial nephrectomy BACK SURGERY for sciatic nerve APPENDECTOMY 04/24/1969 - 04/23/1970 OTHER SURGICAL HISTORY 03/08/2023 Sleep Endoscopy Medical History Medical History Date Comments Hypertension Hypertension Hx Other Medical Arrhythmias (fr eq PVC's) Hypothyroidism Hypothyroidism Adiposity Obesity Hx Other Medical Sleep Apnea, CP AP Heart murmur Depression Sleep disorder Hypercholesteremia Hearing loss Bronchitis Kidney stone Arthritis Allergic rhinitis Vitamin D deficiency Coronary artery disease invo lving stebbins coronary artery of steb[place] heart without angina pectoris 03/30/2016 Coronary artery disease invo lving st[place] coronary artery of stebbins heart without angina pectoris PVC's (premature ventricular contractions) 10/16/2015 PVC's (premature ventricular contractions) Asymmetric septal hypertrophy 2018 Nonrheumatic aortic valve stenosis 12/11/2018 Mixed hyperlipidemia 04/01/2021 Coronary artery spasm (HCC) 03/08/2016 Hypotension 03/04/2016 Sensorineural hearing loss ( SNHL) of both ears 02/16/2021 Vestibular dysfunction of both ears 02/16/2021 Right-sided low back pain wi thout sciatica 01/04/2021 DEANA on CPAP 10/16/2015 DEANA on CPAP Chronic fatigue 12/06/2016 Right lower lobe pneumonia Graves disease 05/30/2023 Heart disease Family History Medical History Relation Name Comments Depression Daughter Richardson Jack Heart attack Father PR; Cause of De ath: PR Hearing loss Mother Valery Heart attack Mother Valery [place]; Cause of De ath: [place] Thyroid disease Mother Valery Heart disease Sister Nataliia heart problems ; Alzheimer's disease Neg Hx Anesthesia problems Neg Hx Dementia Neg Hx Malig Hypertension Neg Hx Malig Hyperthermia Neg Hx Pseudochol deficiency Neg Hx Relation Name Status Comments Daughter Richardson Jack Father (Age 44) Mother Valery (Age 65) Sister Nataliia Alive Social History Tobacco Use Types Packs/Day Years [...] on file Legal 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 Gender Identity Not on file Sexual Orientation Not on file Occupation Industry Job Start Date Job End Date [employer] Not on file Not on file Not on file Obstetrics History Para Term AB IAB SAB Ectopic Multiple Livin g Live Births 3 3 3 3 3 Date Outcome GA Total Labor Labor/2nd/3rd Weight Sex Type Anes PTL Domenica A1 A5 Name Clin Term 40w 0d U Living Complications:None Term 40w 0d U Living Term 40w 0d U N Living Last Filed Vital Signs Vital Sign Reading [...] 02/02/2024 8:21 AM CDT Plan of Treatment Health Maintenance Due Date Last Done Comments Osteoporosis Screening-Bone Density Scan 1943 DTaP/Tdap/Td Vaccine (1 - Tdap) 1954 Hepatitis B Screening 1961 Well Visit 65+ 2008 Zoster Vaccine (2 of 3) 09/21/2014 07/27/2014 Depression Screening 01/04/2022 01/04/2021, 01/05/20 Influenza Vaccine (#1) 2023 9, 02/03/2018, 01/25/2017, Additional history exists Fall Risk Assessment 09/12/2024 09/13/2023 Pneumococcal vaccine 65+ Completed 02/23/2017, 12/23 Medical Devices Implanted Type Area Ct Technologist Device Identifier Shelf Expiration Date Model / Serial / Lot [employer] Lead Neurostimulator Sleep Apnea Thoracic Permanent Respiratory Sensing Inspire 43cm 4340 - [id number] - [id number] Implanted:Qty: 1 on 09/13/2023 by Lizzy Lazaro MD at [facility] Right: Chest [employer] 01/30/2026 4340 / [id number] / [employer] Inspire 3 Electrode Cuff Tunnel Juan Lead Neurostimulator Sterile 4063 - [id number] - [id number] Implanted:Qty: 1 on 09/13/2023 by Lizzy Lazaro MD at [facility] Right: Neck [employer] 12/18/2025 4063 / [id number] / [employer] Inspire Generator 3028 - [id number] - [id number] Implanted:Qty: 1 on 09/13/2023 by Lizzy Lazaro MD at [facility] Right: Chest [employer] 07/28/2025 3028 / [id number] / Insurance MEDICARE [place] [employer] [place] [id number] MEDIC[place] [address] [place] MEDICARE Advance Directives For more information, please contact: [phone] * Full Code (Latest Code Status on File) Date Activated Date Inactivated Comments 12/08/2017 8:54 AM 12/08/2017 1:10 PM Care Teams Import Coordinator Relationship Specialty Start Date End Date Gosia Bustamante MD [address] [facility] [address] [place] [id number] PCP - General 05/09/12
--- OUTSIDE RECORDS SUMMARY | 2024-06-06 00:18 | XMS_ITS | Encounter Summary ---
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 [employer] Not on file Not on file Not on file documented as of this encounter Plan of Treatment Not on file documented as of this encounter Procedures Procedure Name Priority Date/Time Associated Diagnosis Comments SCAN - LABS 08/15/2022 documented in this encounter Results * SCAN - LABS (08/15/2022) us Provider Scanning Final Result documented in this encounter Visit Diagnoses Not on filedocumented in this encounter Care Teams Scientist/Engineer Relationship Specialty Start Date End Date Gosia Bustamante MD [address] [facility] [address] [place] [address] PCP - General 05/09/12 documented as of this encounter
--- OUTSIDE RECORDS SUMMARY | 2024-06-06 00:18 | XMS_ITS | Clinical Summary ---
Author Organization [facility] Address [address] [place] [address] Care Team Providers Care Employee Relations Advisor Name Role Phone Unavailable Primary Care Provider Unavailabl e Social History Tobacco Use Types Packs/Day Years Used Date Smoking Tobacco: Never Assessed Comments Unknown Sex and Gender Information Value Date Recorded Sex Assigned at Not on file Legal Sex Female 4:41 PM CDT Gender Identity Not on file Sexual Orientation Not on file Plan of Treatment Health Maintenance Due Date Last Done Comments DTaP, Tdap and Td Vaccines ( 1 - Tdap) 1962 Zoster Vaccines (1 of 2) 1993 Dexa Scan (General) 2008 Pneumococcal Vaccine: 65+ Ye ars (1 of 1 - PCV) 2008 RSV Immunization or 60+ Years (1 - 1-dose 75+ series) 2018 COVID-19 Vaccine (2023-2 5 season) 2023 Influenza Adult (#1) 2024 Meningococcal B Vaccine Aged Out No l onger eligible based on patient's age to complete this topic Meningococcal Vaccine Aged Out No bree enrico eligible based on patient's age to complete this topic RSV Immunizations Under 20 Months Aged Out No longer eligible based on patient's age to complete this topic
--- OUTSIDE RECORDS SUMMARY | 2024-06-06 00:18 | XMS_ITS | Encounter Summary ---
Author Organization [facility] Address [address] [facility] [address] [facility] [address] [place] [address] Care Team Providers Care Workers Compensation Examiner Name Role Phone Gosia Bustamante MD Primary Care Provider Encounter Details Date Type Department Care Team (Late st Contact Info) Description 05/10/2016 Orders Only [facility] ProviderAudrey MD [address] [place] [address] Social History Tobacco Use Types Packs/Day Years Used Date Smoking Tobacco: Never Alcohol Use Standard Drinks/Week Comments No 0 (1 standard drink = 0.6 oz pur e alcohol) Comments Unknown Sex and Gender Information Value Date Recorded Sex Assigned at Not on file Legal Sex Female 2:26 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 Historical Provider [facility] Final Result * CARDIOLOGY REPORT (05/10/2016) Anatomical Region Laterality Modality Other Narrative 05/10/2016 Ordered by an unspecified provider. us Historical Provider [facility] Final Result documented in this encounter Visit Diagnoses Not on filedocumented in this encounter Care Teams Workers Compensation Examiner Relationship Specialty Start Date End Date Gosia Bustamante MD [address] [facility] [address] [place] [address] PCP - General 05/09/12 documented as of this encounter
--- NOTE | 2024-06-06 07:29 | WPDANESEPPF ---
Anes - Initial Pre Proc Eval Procedure: Operation Date: 06/06/24 08:30 Proposed Procedures p Colonoscopy - Blas Sidhu MD Date/Time: 06/06/24 07:29 Surgeon: Blas Sidhu MD Pre Op Diagnosis: Change in bowel habit,polyp colon. Constipation Patient Data Age: 79 Gender: F Height: 1.65 m Weight: 74 kg Allergies Allergy/AdvReac Type Severity Reaction Status Date / Time pilocarpine Allergy Severe cold sweats Verified 06/06/24 07:27 Home Medications ?Medication ?Instructions ?Recorded ?Confirmed ?Type aspirin 81 mg tablet,delayed 81 mg PO HS 04/18/19 06/06/24 History release (Aspir-Low) cholecalciferol (vitamin D3) 50 2,000 unit PO HS 04/18/19 06/06/24 History mcg (2,000 unit) tablet [id number] 8 mg-folic 400 1 tablet PO HS 01/24/23 06/06/24 History mcg-K 50 mcg-lutein 300 mcg tablet (Centrum Silver Women) carvedilol 3.125 mg tablet 3.125 mg PO BID #180 tabs 08/07/23 06/06/24 Rx temazepam 30 mg capsule 30 mg PO QHS PRN sleep #30 caps 04/04/24 06/06/24 Rx sodium chloride 1,000 mg soluble See Rx Instructions .Route 05/06/24 06/06/24 Rx tablet .COMPLEX #90 tabs lubiprostone 24 mcg capsule 24 mcg PO BID #60 caps 05/16/24 06/06/24 Rx rosuvastatin 20 mg tablet (Crestor) 20 mg PO DAILY #90 tabs 06/03/24 06/06/24 Rx Patient hx anesthesia problems: none Family hx anesthesia problems: none Results Review: All pre-operative results and documents have been reviewed as part of the pre-operative evaluation. [facility] Past Medical History Medical History Weakness of both lower extremities Weakness of both arms EL positive Rufino's thyroiditis Pneumonia of right lower lobe due to infectious organism Screening declined by patient Hand pain Confusion Arthritis Osteoporosis Anxiety Depression Constipation Pneumonia Hearing loss Wears glasses Pes planus of right foot Degenerative arthritis of right foot BMI 40.0-44.9, adult Dizziness Neck pain Degenerative joint disease of right elbow Biceps rupture, proximal Lateral epicondylitis of right elbow Hand weakness Fall Elbow pain Elbow injury Degenerative joint disease of knee Left knee pain Kidney stones Chronic insomnia Hypothyroidism, unspecified KWADWO (generalized anxiety disorder) CAD (coronary artery disease) Benign essential HTN Rectal bleeding Upper respiratory infection Surgical History Surgical History H/O Spinal surgery Hx of tonsillectomy H/O partial nephrectomy History of appendectomy History of total knee arthroplasty Family History Family History Sibling Hypertension Family history of diabetes mellitus in first degree relative Mother Depression Heart disease Thyroid disorder Other Arthritis Family history of kidney disease HLD (hyperlipidemia) Social History Social History Social History: Smoking status: Never smoker Second hand tobacco smoke exposure: No Alcohol intake: current Substance use: never Substance use type: does not use Do You Feel Safe in your Home?: Yes Lack of Transportation: No Lack of Food: Never True Current Housing: I Have Housing Concerned About Future Housing: No Difficulty Paying Gas/Electric Bills: No Difficulty Paying for Meds: No Currently Unemployed: No Education: High School Diploma/GED Difficulty w/ Childcare or Family Care: No Living arrangements: with family Occupation/Education: retired Gender identity (if verbalized by the patient): Female Sexual Orientation (if Verbalized by the Patient): Straight or Heterosexual Spiritual care concerns: No Anes - Eval Final PreProcedure Day of Procedure 06/06/24 07:29 Patient weight: overweight Heart: regular rate and rhythm Lungs: clear to auscultation Airway: Mallampati scale class II Neurological: alert and oriented Last oral intake: >/= 8 hours ASA classification: III Emergent: no Anesthetic plan: proceed Anesthesia type and monitoring: general GIVS and standard monitoring Results Review: All pre-operative results and documents have been reviewed as part of the pre-operative evaluation. Informed Consent: The patient's anesthetic plan and its attendant risks and benefits were discussed with the patient/family/POA. Questions were solicited and answers provided to the satisfaction of the patient/family/POA.
[2024-06-06 07:30] VITALS: BP 132/89; PULSE 72; RESP 16; TEMP 36.9; O2SAT 97
--- NOTE | 2024-06-06 07:46 | WPDHPUPDATE1 ---
History and Physical Update Update Date/Time: 06/06/24 07:46 History and Physical has been reviewed, including an updated exam of the patient. There are NO changes in the patient's condition. Risks, benefits, and alternatives have been discussed and questions answered. Patient agrees to proceed with procedure.
[2024-06-06] MEDS: LACTATED RINGERS 1,000 ML 150 ML IV CONT (07:48)
[2024-06-06 08:12] VITALS: BP 80/46; PULSE 52; RESP 16; O2SAT 98
[2024-06-06 08:22] VITALS: BP 82/54; PULSE 64; RESP 16; O2SAT 99
[2024-06-06 08:33] VITALS: BP 100/69; PULSE 59; RESP 22; O2SAT 100
== END 2024-06-06 09:05 | disposition home or self-care (01) ==
PROVIDERS: PCP Family Medicine; Referring Provider Nurse Practitioner Family; Visit Provider Internal Medicine Gastroenterology
PROC: 0DJD8ZZ Inspection of Lower Intestinal Tract, Via Natural or Artificial Opening Endoscopic (ICD-10-PCS; CPT 45378; principal; 2024-06-06 08:30)
DX: K64.8 Other hemorrhoids (principal); K57.30 Diverticulosis of large intestine without perforation or abscess without bleeding; I12.9 Hypertensive chronic kidney disease with stage 1 through stage 4 chronic kidney disease, or unspecified chronic kidney disease; N18.30 Chronic kidney disease, stage 3 unspecified; E06.3 Autoimmune thyroiditis; E78.5 Hyperlipidemia, unspecified; K21.9 Gastro-esophageal reflux disease without esophagitis; M81.0 Age-related osteoporosis without current pathological fracture; F51.04 Psychophysiologic insomnia; G47.33 Obstructive sleep apnea (adult) (pediatric); I25.10 Atherosclerotic heart disease of native coronary artery without angina pectoris; F43.10 Post-traumatic stress disorder, unspecified; F41.9 Anxiety disorder, unspecified; F32.A Depression, unspecified; M19.071 Primary osteoarthritis, right ankle and foot; M19.021 Primary osteoarthritis, right elbow; Z79.82 Long term (current) use of aspirin; Z98.890 Other specified postprocedural states; Z90.5 Acquired absence of kidney; Z98.1 Arthrodesis status; M17.10 Unilateral primary osteoarthritis, unspecified knee; Z87.442 Personal history of urinary calculi; Z82.49 Family history of ischemic heart disease and other diseases of the circulatory system
CPT/HCPCS: 45378; J2003; J2704; J7120

== ENCOUNTER 2024-06-26 13:21 | Outpatient (CLI) | payer MEDICARE, SELFPAY ==
--- NOTE | ~2024-06-26 | XR_ITS ---
EXAMINATION: XR barium swallow modified DATE: 06/26/2024 14:34 INDICATION: Dysphagia. TECHNIQUE: The patient was given barium-containing material of multiple consistencies to swallow by t ketan speech pathologist while I performed fluoroscopy. Fluoroscopy exposure time was 1.6 minutes. The n umber of fluoroscopy images saved to the PACS was 1. Dose-area product was 0.928 Gy-cm^2. FINDINGS: There is reduced tongue base retraction, vallecular residue, pyriform sinus residue, and flash laryng eal penetration. IMPRESSION: 1. Flash laryngeal penetration. 2. Please refer to the speech therapy report for recommendations. Reviewed, dictated and finalized at location A. TURE BANDER
--- OUTSIDE RECORDS SUMMARY | 2024-06-26 14:49 | XMS_ITS | CONTINUITY OF CARE DOCUMENT ---
Author Name radhika mcelvi Address Unknown Organization [facility] Address [address] [place] [address] Phone [phone] Care Team Providers Care Aviation Metalsmith Name Role Phone Johnny RANDALL, Vickie Unavailable SIMON RANDALL, ILEANA Unavailable Unavailable KAZ RANDALL, ANNETTE Unavailable INSURANCE PROVIDERS Payer name Policy type / Coverage type [place] red republican [employer] Commercial insurance company [id number] [place] [employer] Medicare [id number]
--- OUTSIDE RECORDS SUMMARY | 2024-06-26 14:49 | XMS_ITS | Encounter Summary ---
Author Organization [facility] Address [address] [place] [address] Care Team Providers Care Design Sales Consultant Name Role Phone Gosia Bustamante MD Primary Care Provider Handy Lara MD Primary Care Provider Encounter Details Date Type Department Care Team (Late st Contact Info) Description 05/10/2016 Orders Only [facility] ProviderAudrey MD [address] [place] [address] Social History Tobacco Use Types Packs/Day Years Used Date Smoking Tobacco: Never Alcohol Use Standard Drinks/Week Comments No 0 (1 standard drink = 0.6 oz pur e alcohol) Comments Unknown Sex and Gender Information Value Date Recorded Sex Assigned at Not on file 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
--- OUTSIDE RECORDS SUMMARY | 2024-06-26 14:49 | XMS_ITS | Encounter Summary ---
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
--- OUTSIDE RECORDS SUMMARY | 2024-06-26 14:49 | XMS_ITS | Encounter Summary ---
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
--- OUTSIDE RECORDS SUMMARY | 2024-06-26 14:49 | XMS_ITS | Referral Summary ---
Author Organization [facility] [address] Address [address] [place] [address] Care Team Providers Care Breaker Up Machine Operator Name Role Phone Handy Lara MD Primary Care Provider Encounters Date Type Department Care Team Description 06/18/2024 9:15 AM ADJUNCT TRAINER Office Visit [facility] Sleep Medicine at [address] [place] [phone] Leonie Alvarez MD DEANA (obstructive sleep apnea) (Primary Dx); Hypersomnia; Overweight; Insomnia, unspecified type 04/30/2024 Telephone [place] [facility] ([facility]) - [facility] ENT [address] [facility] [address] [place] [address] [place] [address] Seda Bacon MS from Last 3 Months Allergies No known active allergies Medications temazepam (RESTORIL) 30 mg capsule take 1 capsule by oral route every day at bedtime as needed 0 0 7 Active Additional Information Patient taking differently:30 mgoral Nightly, Indications: Insomnia, Informant: Self, Reported on 06/18/2024 cholecalciferol (VITAMIN D3) 2,000 unit capsule take 1 by Oral route once 0 0 7 Active Additional Information Patient taking differently: 2,000 Units oral Nightly, Indications: Vitamin D Deficiency, Informant: Self, Reported on 06/18/2024 carvedilol (COREG) 3.125 mg tabletIndicatio ns:hypertension Take [...] prevention of thrombosis, Informant: Self, Reported on 06/18/2024 sodium chloride 1,000 mg tabletIndicatio ns:For supplement Take 1 tablet (1 g total) by mouth every morning 3 Active multivitamin tabletIndicatio ns:Vitamin Deficiency Prevention Take 1 tablet by mouth nightly Active rosuvastatin (CRESTOR) 20 mg tablet Take 1 tablet (20 mg total) by mouth daily 90 tablet 3 4 Active Additional Information Patient taking differently:20 mg oralEvery morning, Indications: hyperlipidemia, Informant: Self, Reported on 06/18/2024 ibuprofen (ADVIL,MOTRIN) 400 mg tablet Take 1 [...] (02/16/2021 9:51 AM CDT): Hearing test - [facility] Will obtain imaging from [facility] from December 2019 Vestibular dysfunction of both ears 02/16/2021 Assessment & Plan (02/16/2021 12:22 PM CDT): Hearing test and Balance testing (VNG) - [facility] Will obtain imaging from [facility] from December 2019 Neck pain on right side 01/04/2021 Assessment & Plan (01/04/2021 3:24 PM CDT): Ms. Logan has mostly axial right neck pain with some radiating pain in right upper extremity and weakness of her right hand keyliner. Will review MRI cervical spine with Dr. [...] (10/31/2017): Added automatically from request for surgery [id number] Dizziness 10/18/2017 Labile essential hypertension 12/06/2016 Assessment & Plan (01/04/2021 3:29 PM CDT): Today's reading with automated machine: Left arm: 162/101 Repeat: 172/111 Instructed to call PCP to further discuss and to continue to monitor her home readings. Chronic fatigue 12/06/2016 Unknown and unspecified causes of morbidity 08/23 Overview (09/16/2016): Labile hypertension Coronary artery disease invo lving nooksack coronary artery of nooksack heart without angina pectoris 03/30/2016 Overview (07/28/2016): Coronary artery disease involving [place]oksack coronary artery of nooksack heart without angina pectoris Acute cystitis without [...] spasm 03/08/20162023 NSTEMI, initial episode of care ([facility]) 03/04/2016 10/07/2021 Dyslipidemia 10/16/2015 10/07/2021 Overview (07/29/2016): Mixed dyslipidemia Immunizations Immunization Administration Dates Next Due Influenza, Trivalent, Adjuva [...] on file Legal Sex Female 2:26 AM ADJUNCT TRAINER Gender Identity Not on file Sexual Orientation Not on file Occupation Industry Job Start Date Job End Date [email or web address] Not on file Not on file Not on file Last Filed Vital Signs Vital Sign Reading Time Taken Comments Blood Pressure 152/97 06/18/2024 9:07 AM ADJUNCT TRAINER Pulse 84 06/18/2024 9:07 AM ADJUNCT TRAINER Temperature 36.8 C (98.2 F) 01/31/2024 9:06 AM CDT Respiratory Rate 10 09/13/2023 2:30 PM CDT Oxygen Saturation 96% 06/18/2024 9:07 AM ADJUNCT TRAINER Inhaled Oxygen Concentration - - Weight 74.8 kg (164 lb 12.8 oz) 06/18/2024 9:07 AM ADJUNCT TRAINER Height 172.7 cm (5' 7.99 ) 06/18/2024 9:07 AM CS T Body Mass Index 25.06 06/18/2024 9:07 AM ADJUNCT TRAINER Plan of Treatment Not on file Medical Devices Implanted Type Area Tailor'S Aide Device Identifier Shelf Expiration Date Model / Serial / Lot [employer] Lead Neurostimulator Sleep Apnea Thoracic Permanent Respiratory Sensing Inspire 43cm 4340 - [id number] - [id number] Implanted:Qty: 1 on 09/13/2023 by Lizzy Lazaro MD at [facility] Right: Chest [employer] 01/30/2026 4340 / [id number] / [employer] Inspire 3 Electrode Cuff Tunnel Juan Lead Neurostimulator Sterile 4063 - [id number] - [id number] Implanted:Qty: 1 on 09/13/2023 by Lizzy Lazaro MD at [facility] Right: Neck [employer] 12/18/2025 4063 / [id number] / [employer] Inspire Generator 3028 - [id number] - [id number] Implanted:Qty: 1 on 09/13/2023 by Lizzy Lazaro MD at [facility] Right: Chest [employer] 07/28/2025 3028 / [id number] / Insurance MEDICARE [employer] INSURANCE MEDICARE [employer] [place] [id number] MEDICARE [place] ANEL [place] [id number] [id number] MEDICARE Advance Directives For more information, please contact: [phone] * Full Code (Latest Code Status on File) Date Activated Date Inactivated Comments 12/08/2017 8:54 AM 12/08/2017 1:10 PM Care Teams Breaker Up Machine Operator Relationship Specialty Start Date End Date Handy Lara MD [address] [facility] [address] [place] [address] PCP - General Family Medicine 06/18/24
--- OUTSIDE RECORDS SUMMARY | 2024-06-26 14:49 | XMS_ITS | Encounter Summary ---
Author Organization [facility] Address [address] [place] [address] Phone Care Team Providers Care Licensed Real Estate Broker Name Role Phone Gosia Bustamante MD Primary [...] on file Legal Sex Female 2:26 AM EGG BUYER Gender Identity Not on file Sexual Orientation Not on file Occupation Industry Job Start Date Job End Date Ran [employer] Not on file Not on file Not [...] on filedocumented in this encounter Care Teams Licensed Real Estate Broker Relationship Specialty Start Date End Date Gosia Bustamante MD [address] [place] [address] PCP - General 05/09/12 06/17/24 Handy Lara MD [address] [place] [address] PCP - General Family Medicine 06/18/24 documented as of this encounter
--- OUTSIDE RECORDS SUMMARY | 2024-06-26 14:49 | XMS_ITS | Clinical Summary ---
Author Organization [facility] Address [address] Attn: Epic Prelude ADT CANDI RICHARDS [address] Care Team Providers Care Sack Sewer Name Role Phone Non-Staff, Physician Primary Care [...] tablet Take 75 mcg by mouth daily canvas goods maker. 03/04/2016 Active Active Problems Problem Noted Date [...] on file Legal Sex Female 12:53 AM INDUSTRIAL SPECIALIST Gender Identity Not on file Sexual Orientation Not on file Last Filed Vital Signs Vital Sign Reading Time Taken Comments Blood Pressure 128/81 03/08/2016 8:17 AM INDUSTRIAL SPECIALIST Pulse 71 03/08/2016 6:51 AM INDUSTRIAL SPECIALIST Temperature 36.9 C (98.5 F) 03/08/2016 6:51 AM INDUSTRIAL SPECIALIST Respiratory Rate 14 03/08/2016 6:51 AM INDUSTRIAL SPECIALIST Oxygen Saturation - - Inhaled Oxygen Concentration - - Weight 104.1 kg (229 lb 9.6 oz) 03/08/2016 3:45 AM INDUSTRIAL SPECIALIST Height 170.2 cm (5' 7 ) 03/05/2016 12:0 0 AM INDUSTRIAL SPECIALIST Body Mass Index 35.96 03/05/2016 12:00 AM INDUSTRIAL SPECIALIST Plan of Treatment Health Maintenance Due Date Last Done Comments DTAP/TDAP/TD VACCINES (1 - Tdap) 1962 PNEUMOCOCCAL VACCINE 50+ YEARS (1 of 1 - PCV) 06/06/18 94 ZOSTER VACCINE (1 of 2) 1993 OSTEOPOROSIS SCREENING 2008 RSV VACCINE (60+ or ) (1 - 1-dose 75+ series) 2018 INFLUENZA VACCINE (#1) 2023 Care Teams Sack Sewer Relationship Specialty Start Date End Date Non-Staff, Physician NO ADDRESS ON FILE PCP - General 03/04/16
--- OUTSIDE RECORDS SUMMARY | 2024-06-26 14:49 | XMS_ITS | Clinical Summary ---
Author Organization [facility] Address [address] [place] [address] Care Team Providers Care Orthotist Prosthetist Name Role Phone Unavailable Primary Care Provider [...]
--- OUTSIDE RECORDS SUMMARY | 2024-06-26 14:49 | XMS_ITS | Clinical Summary ---
Author Organization [facility] [address] Address [address] [place] [address] Care Team Providers Care Police Judge Name Role Phone Handy Lara MD Primary Care Provider Allergies No known [...] total) by mouth daily 90 tablet 3 Active Additional Information Patient taking differently:20 mg [...] (02/16/2021 9:51 AM CDT): Hearing test - [facility] Will obtain imaging from [facility] from December 2019 Vestibular dysfunction of both ears 02/16/2021 Assessment & Plan (02/16/2021 12:22 PM CDT): Hearing test and Balance testing (VNG) - [facility] Will obtain imaging from [facility] from December 2019 Neck pain on right side 01/04/2021 Assessment & Plan (01/04/2021 3:24 PM CDT): Ms. 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 Will review MRI cervical spine with Dr. [...] (10/31/2017): Added automatically from request for surgery [id number] Dizziness 10/18/2017 Labile essential hypertension 12/06/2016 Assessment & Plan (01/04/2021 3:29 PM CDT): Today's reading with automated machine: Left arm: 162/101 Repeat: 172/111 Instructed to call PCP to further discuss and to continue to monitor her home readings. Chronic fatigue 12/06/2016 Unknown and unspecified causes of morbidity 08/23 Overview (09/16/2016): Labile hypertension Coronary artery disease invo lving kaguyuk coronary artery of kaguy[place] heart without angina pectoris 03/30/2016 Overview (07/28/2016): Coronary artery disease involving kaguy[place] coronary artery of kaguy[place] heart without angina pectoris Acute cystitis without [...] spasm 03/08/20162023 NSTEMI, initial episode of care ([facility]) 03/04/2016 10/07/2021 Dyslipidemia 10/16/2015 10/07/2021 Overview (07/29/2016): Mixed dyslipidemia Encounters Date Type Department Care Team Description 06/18/2024 9:15 AM CAMERA PERSON Office Visit [facility] Sleep Medicine at [address] [place] [address] Leonie Alvarez MD DEANA (obstructive sleep apnea) (Primary Dx); Hypersomnia; Overweight; Insomnia, unspecified type 04/30/2024 Telephone [facility] Medicine ([facility]) - [facility] ENT [address] 11[address] [place] [address] [place] [id number] Seda Bacon MS from Last 3 Months Immunizations Immunization Administration Dates Next Due Influenza, [...] D deficiency Coronary artery disease invo lving kaguy[place] coronary artery of kaguy[place] heart without angina pectoris 03/30/2016 Coronary artery disease invo lving kaguy[place] coronary artery of kaguy[place] heart without angina pectoris PVC's (premature ventricular contractions) 10/16/2015 PVC's (premature ventricular contractions) Asymmetric septal hypertrophy 2018 Nonrheumatic aortic valve stenosis 12/11/2018 Mixed hyperlipidemia 04/01/2021 Coronary artery spasm 03/08/2016 Hypotension 03/04/2016 Sensorineural hearing loss ( SNHL) of both ears 02/16/2021 Vestibular dysfunction of both ears 02/16/2021 Right-sided low back pain wi thout sciatica 01/04/2021 DEANA on CPAP 10/16/2015 DEANA on CPAP Chronic fatigue 12/06/2016 Right lower lobe pneumonia Graves disease 05/30/2023 Heart disease Family History Medical History Relation Name Comments Depression Daughter Richardson Jack Heart attack Father [place]; Cause of De ath: [place] Hearing loss Mother Valery Heart attack Mother Valery [place]; Cause of De ath: [place] Thyroid disease Mother Valery Heart disease Sister [...] on file Legal Sex Female 2:26 AM CAMERA PERSON Gender Identity Not on file Sexual Orientation Not on file Occupation Industry Job Start Date Job End Date [email or web address] Not on file Not on file Not [...] Comments Blood Pressure 152/97 06/18/2024 9:07 AM CAMERA PERSON Pulse 84 06/18/2024 9:07 AM CAMERA PERSON Temperature 36.8 C (98.2 F) 01/31/2024 9:06 AM CDT Respiratory Rate 10 09/13/2023 2:30 PM CDT Oxygen Saturation 96% 06/18/2024 9:07 AM CAMERA PERSON Inhaled Oxygen Concentration - - Weight 74.8 kg (164 lb 12.8 oz) 06/18/2024 9:07 AM CAMERA PERSON Height 172.7 cm (5' 7.99 ) 06/18/2024 9:07 AM CS T Body Mass Index 25.06 06/18/2024 9:07 AM CAMERA PERSON Plan of Treatment Health Maintenance Due Date Last Done Comments Osteoporosis Screening-Bone Density Scan 1943 DTaP/Tdap/Td Vaccine (1 - Tdap) 1954 Hepatitis B Screening 1961 Well Visit 65+ 2008 Zoster Vaccine (2 of 3) 09/21/2014 07/27/2014 Depression Screening 01/04/2022 01/04/2021, 01/05/20 21 Influenza Vaccine (#1) 2023 9, 02/03/2018, 01/25/2017, Additional history exists Fall Risk Assessment 09/12/2024 09/13/2023 Pneumococcal vaccine 65+ Completed 02/23/2017, 12/23 Medical Devices Implanted Type Area Vibrating Screen Operator Device Identifier Shelf Expiration Date Model / Serial / Lot [employer] Lead Neurostimulator Sleep Apnea Thoracic Permanent Respiratory Sensing Inspire 43cm 4340 - [id number] - [id number] Implanted:Qty: 1 on 09/13/2023 by Lizzy Lazaro MD at [facility] Right: Chest [employer] 01/30/2026 4340 / [id number] / [employer] Inspire 3 Electrode Cuff Tunnel Juan Lead Neurostimulator Sterile 4063 - [id number] - [id number] Implanted:Qty: 1 on 09/13/2023 by Lizzy Lazaro MD at [facility] Right: Neck [employer] 12/18/2025 4063 / [id number] / [employer] Inspire Generator 3028 - [id number] - [id number] Implanted:Qty: 1 on 09/13/2023 by Lizzy Lazaro MD at [facility] Right: Chest [employer] 07/28/2025 3028 / [id number] / Insurance MEDICARE [facility] Address[facility] [address] [place] [address] [place] [address] MEDICARE [facility] INSURANCE [address] [id number] MEDICARE [facility] INSURANCE [place] [employer] MEDICARE Advance Directives For more information, please contact: [phone] * Full Code (Latest Code Status on File) Date Activated Date Inactivated Comments 12/08/2017 8:54 AM 12/08/2017 1:10 PM Care Teams Police Judge Relationship Specialty Start Date End Date Handy Lara MD [address] [facility] [address] [place] [address] PCP - General Family Medicine 06/18/24
--- NOTE | 2024-06-28 08:17 | REHSTMBS ---
Assessment and note entered by Shilpi Aparicio, DELIVERY TRUCK DRIVER Modified Barium Swallow Evaluation ICD-10 Condition Codes (ST) Dysphagia, unspecified R13.1 Feeding Type Recommended Oral Food Consistency Regular, Easy to Chew (7) Liquid Consistency Thin (0) ST Clinical Summary The above pleasant and cooperative pt was seen for an outpatient modified barium swallow. She was alert, oriented, & able to answer questions related to eating/swallowing. She stated she has difficulty swallowing pills and occasionally has to cough it out, which has been going on for a couple years . She added that occasionally, her swallowing difficulty causes her to wake up, and recently, she has been feeling nauseous. She is reportedly seeing a doctor for her thyroid and has an Inspire for sleep apnea. She reports occasional choking. She is currently on a regular diet. Oral mucosa is normal & vocal quality was clear. The patient was seated for a lateral view and presented with 5cc of thin liquid barium via spoon , pudding consistency barium via a spoon, cracker coated with barium pudding via spoon via a spoon, a barium pill, and uncontrolled thin liquid barium which was presented via a cup & straw. Oral preparatory and oral phase symptoms: none. Pharyngeal phase symptoms: mild/moderate vallecular residue indicative of reduced tongue base retraction; however, the pt demonstrated sensation and independently dry swallowed, which completely cleared all residual from pharynx. Intermittent pyriform sinus residual was also exhibited but it was also cleared with pt's dry swallow. Esophageal stage symptoms: none. No aspiration occurred. Impressions: Functional wallow Ability No further ST is warranted at this time; however, if there is an increased complaint of symptoms, i. e., food sticking in her throat , speech therapy may be warranted.
== END 2024-06-26 13:22 | disposition home or self-care (01) ==
PROVIDERS: PCP Family Medicine; Visit Provider Nurse Practitioner Family
DX: R13.12 Dysphagia, oropharyngeal phase (principal); T17.300A Unspecified foreign body in larynx causing asphyxiation, initial encounter
CPT/HCPCS: 92611

== ENCOUNTER 2024-08-07 12:58 | Outpatient (CLI) | payer MEDICARE, SELFPAY ==
--- NOTE | ~2024-08-07 | XR_ITS ---
XR chest 2V 08/07/2024 13:16 Indication: Cough Procedure: PA and lateral views the chest Comparison: 10/24/2020 Findings: Heart size normal. Stimulator lead overlying the right thorax. Chronic reticular opacities of the costophrenic recesses are unchanged. No acute focal pneumonia, pleural effusion or pneumothora x. Moderate thoracic spondylosis. Impression: 1: No acute cardiopulmonary disease. Reviewed, dictated and finalized at location B. Impression: 1: No acute cardiopulmonary disease.
--- NOTE | ~2024-08-07 | XR_ITS ---
Left Hand Technique: PA and lateral views were obtained. Clinical History: Pain Findings: No acute fracture or dislocation is seen. Osseous alignment is anatomic. Mild degenerative changes at the DIP joints and first CMC joint. Soft tissues are unremarkable. Impression: Mild degenerative changes, as above. Reviewed, dictated and finalized at location . Impression: Mild degenerative changes, as above.
--- OUTSIDE RECORDS SUMMARY | 2024-08-07 13:57 | XMS_ITS | Clinical Summary ---
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 Gender Identity Not on file Sexual Orientation Not on file Last Filed Vital Signs Vital Sign Reading Time Taken Comments Blood Pressure 128/81 03/08/2016 8:17 AM ELECTRIC GOLF CART REPAIRER Pulse 71 03/08/2016 6:51 AM ELECTRIC GOLF CART REPAIRER Temperature 36.9 C (98.5 F) 03/08/2016 6:51 AM ELECTRIC GOLF CART REPAIRER Respiratory Rate 14 03/08/2016 6:51 AM ELECTRIC GOLF CART REPAIRER Oxygen Saturation - - Inhaled Oxygen Concentration - - Weight 104.1 kg (229 lb 9.6 oz) 03/08/2016 3:45 AM ELECTRIC GOLF CART REPAIRER Height 170.2 cm (5' 7 ) 03/05/2016 12:0 0 AM ELECTRIC GOLF CART REPAIRER Body Mass Index 35.96 03/05/2016 12:00 AM ELECTRIC GOLF CART REPAIRER Plan of Treatment Health Maintenance Due Date Last Done Comments DTAP/TDAP/TD VACCINES (1 - Tdap) 1962 PNEUMOCOCCAL VACCINE 50+ YEARS (1 of 1 - PCV) 06/06/18 94 ZOSTER VACCINE (1 of 2) 1993 OSTEOPOROSIS SCREENING 2008 RSV VACCINE (60+ or ) (1 - 1-dose 75+ series) 2018 INFLUENZA VACCINE (#1) 2023 Care Teams Message Broker Developer Relationship Specialty Start Date End Date Non-Staff, Physician NO ADDRESS ON FILE PCP - General 03/04/16
--- OUTSIDE RECORDS SUMMARY | 2024-08-07 13:57 | XMS_ITS | CONTINUITY OF CARE DOCUMENT ---
Author Name radhika edsonsantos Address Unknown Organization [facility] Address [address] [place] [address] Phone [phone] Care Team Providers Care Configuration Engineer Name Role Phone Johnny RANDALL, Vickie Unavailable SIMON RANDALL, ILEANA Unavailable Unavailable KAZ RANDALL, ANNETTE Unavailable INSURANCE PROVIDERS Payer name Policy type / Coverage type [place] red alliance party ID [employer] Commercial insurance company [id number] [place] Medicare [id number]
--- OUTSIDE RECORDS SUMMARY | 2024-08-07 13:57 | XMS_ITS | Clinical Summary ---
Author Organization [facility] Address [address] [place] [id number] Care Team Providers Care Family Law Mediator Name Role Phone Unavailable Primary Care Provider [...] 1993 Dexa Scan (General) 2008 Pneumococcal Vaccine: 50+ Ye ars (1 of 1 - PCV) 2008 RSV Immunization or 60+ Years (1 - 1-dose 75+ series) 2018 COVID-19 Vaccine (2023-2 5 season) 2023 Meningococcal B Vaccine Aged Out No l onger eligible based on patient's age to complete this topic Meningococcal Vaccine Aged Out No bree enrico eligible based on patient's age to complete this topic RSV Immunizations Under 20 Months Aged Out No longer eligible based on patient's age to complete this topic
== END 2024-08-07 12:59 | disposition home or self-care (01) ==
PROVIDERS: PCP Family Medicine; Visit Provider Family Medicine
DX: M19.042 Primary osteoarthritis, left hand (principal); R05.9 Cough, unspecified
CPT/HCPCS: 71046; 73120

== ENCOUNTER 2024-12-13 08:39 | Outpatient (CLI) | payer MEDICARE, SELFPAY ==
--- NOTE | ~2024-12-13 | CT_ITS ---
EXAMINATION: CT abdomen pelvis wo/w con DATE: 12/13/2024 09:31 INDICATION: Hematuria TECHNIQUE: Computed tomography (CT) of the abdomen and pelvis was performed with and without intravenous contrast. The dose-length product was 1697.59 mGy-cm. COMPARISON: None. FINDINGS: There are a few small bandlike, patchy reticular opacities in the lower lungs. There is a 3.2 cm right renal cyst. Liver, spleen, pancreas and gallbladder are unremarkable. There is a 3 mm nonobstructing right renal stone. There is a 3 mm nonobstructing left renal stone. Abdominal aorta is partially calcified but is not aneurysmal. There are a few too small to characterize low- attenuation lesions in the kidneys. No bladder calculi. No enlarged lymph nodes in the abdomen or pelvis identified. Uterus is heterogeneous. No dilated bowel loops. Moderate amount of stool. Appendix not definitely identified. Bones appear osteopenic. Multilevel degenerative change throughout the visualized spine. Grade 1 anterolisthesis of L4 on L5. IMPRESSION: 1. Bilateral nonobstructing renal stones. No hydronephrosis. 2. Right renal cyst. 3. No CT evidence for a renal mass or bladder mass. Reviewed, dictated and finalized at location Q.
--- OUTSIDE RECORDS SUMMARY | 2024-12-13 08:44 | XMS_ITS | Clinical Summary ---
Author Organization [facility] Address [address] [facility] Attn: Epic Prelude ADT CANDI RICHARDS [address] Care Team Providers Care Solvent Recoverer Name Role Phone Non-Staff, Physician Primary Care [...] tablet Take 75 mcg by mouth daily gray tender. 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 Gender Identity Not on file Sexual Orientation Not on file Last Filed Vital Signs Vital Sign Reading Time Taken Comments Blood Pressure 128/81 03/08/2016 8:17 AM BIOSTATISTICS PROFESSOR Pulse 71 03/08/2016 6:51 AM BIOSTATISTICS PROFESSOR Temperature 36.9 C (98.5 F) 03/08/2016 6:51 AM BIOSTATISTICS PROFESSOR Respiratory Rate 14 03/08/2016 6:51 AM BIOSTATISTICS PROFESSOR Oxygen Saturation - - Inhaled Oxygen Concentration - - Weight 104.1 kg (229 lb 9.6 oz) 03/08/2016 3:45 AM BIOSTATISTICS PROFESSOR Height 170.2 cm (5' 7) 03/05/2016 12:0 0 AM BIOSTATISTICS PROFESSOR Body Mass Index 35.96 03/05/2016 12:00 AM BIOSTATISTICS PROFESSOR Plan of Treatment Health Maintenance Due Date Last Done Comments DTAP/TDAP/TD VACCINES (1 - Tdap) 1962 PNEUMOCOCCAL VACCINE 50+ YEARS (1 of 1 - PCV) 06/06/18 94 ZOSTER VACCINE (1 of 2) 1993 OSTEOPOROSIS SCREENING 2008 RSV VACCINE (60+ or ) (1 - 1-dose 75+ series) 2018 INFLUENZA VACCINE (#1) 2024 Care Teams Solvent Recoverer Relationship Specialty Start Date End Date Non-Staff, Physician NO ADDRESS ON FILE PCP - General 03/04/16
--- OUTSIDE RECORDS SUMMARY | 2024-12-13 08:44 | XMS_ITS | Encounter Summary ---
Author Organization [facility] Address [address] [place] [address] Phone Care Team Providers Care Paper Box Maker Name Role Phone Gosia Bustamante MD Primary [...] on file Legal Sex Female 2:26 AM LICENSED STAFF MFT Gender Identity Not on file Sexual Orientation Not on file Occupation Industry Job Start Date Job End Date [employer] business Not on file Not on file [...] on filedocumented in this encounter Care Teams Paper Box Maker Relationship Specialty Start Date End Date Gosia Bustamante MD [address] [place] [address] PCP - General 05/09/12 06/17/24 Handy Lara MD [address] [place] [address] PCP - General Family Medicine 06/18/24 documented as of this encounter
--- OUTSIDE RECORDS SUMMARY | 2024-12-13 08:44 | XMS_ITS | Encounter Summary ---
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
--- OUTSIDE RECORDS SUMMARY | 2024-12-13 08:44 | XMS_ITS | Encounter Summary ---
Author Organization [facility] Address [address] [place] [address] Care Team Providers Care Structural Worker Name Role Phone Gosia Bustamante MD Primary Care Provider Handy Lara MD Primary Care Provider Encounter Details Date Type Department Care Team (Late st Contact Info) Description 05/10/2016 Orders Only [facility] ProviderAudrey MD [address] [place] [address] Social History Tobacco Use Types Packs/Day Years Used Date Smoking Tobacco: Never Alcohol Use Standard Drinks/Week Comments No 0 (1 standard drink = 0.6 oz pur e alcohol) Comments Unknown Sex and Gender Information Value Date Recorded Sex Assigned at Not on file Legal Sex Female 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
--- OUTSIDE RECORDS SUMMARY | 2024-12-13 08:44 | XMS_ITS | Clinical Summary ---
Author Organization [facility] [place] [address] [facility] [address] Address [address] [place] [address] Care Team Providers Care Molder Hand Name Role Phone Handy Lara MD Primary Care Provider Allergies No known active allergies Medications temazepam (RESTORIL) 30 mg capsule take 1 capsule by oral route every day at bedtime as needed 0 0 09/14/2016 Active cholecalciferol (VITAMIN D3) 2,000 unit capsule take 1 by Oral route once 0 0 09/14/2016 Active aspirin (ADULT LOW DOSE ASPIRIN) 81 mg tablet Take 1 tablet (81 mg total) by mouth daily. 2018 Active sodium chloride 1,000 mg tabletIndicatio ns:For supplement Take 1 tablet (1 g total) by mouth every morning 06/21/2022 Active ibuprofen (ADVIL,MOTRIN) 400 mg tablet Take 1 tablet (400 mg total) by mouth every 6 (six) hours as needed for pain Active lubiprostone (AMITIZA) 24 mcg capsule Take 1 capsule (24 mcg total) by mouth 2 (two) times a day 07/19/2024 Active rosuvastatin (CRESTOR) 20 mg tablet Take 1 tablet (20 mg total) by mouth daily Active clopidogreL (PLAVIX) 75 mg tabletIndicatio ns:coronary artery disease Take 1 tablet (75 mg total) by mouth daily 30 tablet 11 10/30/2024 Active Active Problems Problem Noted Date Diagnosed Date S/P TAVR (transcatheter aortic valve replacement ) 10/28/2024 Aortic stenosis, severe 10/03/2024 SIADH (syndrome of inappropriate ADH production) 10/25/2023 Graves disease 05/30/2023 Overview (05/30/2023): Positive TSIg and anti-TPO Apr 2023 DEANA (obstructive sleep apnea) 02/17/2023 Osteoporosis 09/23/2022 Overview (09/23/2022): From outside notes Hyponatremia 08/16/2022 Episode of confusion 10/07/2021 Mixed hyperlipidemia 04/01/2021 Sensorineural hearing loss (SNHL) of both ears 1 Assessment & Plan (02/16/2021 9:51 AM CDT): Hearing test - [facility] Will obtain imaging from [facility] from December 2019 Vestibular dysfunction of both ears 02/16/2021 Assessment & Plan (02/16/2021 12:22 PM CDT): Hearing test and Balance testing (VNG) - [facility] Will obtain imaging from [facility] from December 2019 Neck pain on right side 01/04/2021 Assessment & Plan (01/04/2021 3:24 PM CDT): Ms. Logan has mostly axial right neck pain with some radiating pain in right upper extremity and weakness of her right hand hookman. Will review MRI cervical spine with Dr. [...] (10/31/2017): Added automatically from request for surgery [id number] Dizziness 10/18/2017 Labile essential hypertension 12/06/2016 Assessment & Plan (01/04/2021 3:29 PM CDT): Today's reading with automated machine: Left arm: 162/101 Repeat: 172/111 Instructed to call PCP to further discuss and to continue to monitor her home readings. Chronic fatigue 12/06/2016 Unknown and unspecified causes of morbidity 08/23 Overview (09/16/2016): Labile hypertension Coronary artery disease invo lving akutan coronary artery of akutan heart without angina pectoris 03/30/2016 Overview (07/28/2016): Coronary artery disease involving akutan coronary artery of akutan heart without angina pectoris Acute cystitis without [...] spasm 03/08/20162023 NSTEMI, initial episode of care ([facility]) 03/04/2016 10/07/2021 Dyslipidemia 10/16/2015 10/07/2021 Overview (07/29/2016): Mixed dyslipidemia Encounters Date Type Department Care Team Description 10/28/2024 8:00 AM CDT - 10/28/2024 10:30 AM CDT Surgery [facility] Cardiac Catheterization [facility] [address] [place] [address] Leonel Moreno MD TAVR - PERCUTANEOUS FEMORAL [id number] 10/28/2024 7:55 AM CDT Anesthesia Event [facility]iac [facility]atheter[facility] [address] [place] [id number] Sánchez Steret MD Eldin, Ali S., MD 10/28/2024 5:18 AM CDT - 10/29/2024 4:16 PM CDT Hospital Encounter [address] [address] Leonel Moreno MD Aortic stenosis, severe Discharge Disposition: Discharge to home or self care 10/21/2024 9:49 AM CDT - 10/21/2024 11:59 PM CDT Hospital Encounter [facility] Diagnostic Imaging [address] [place] [address] Discharge Disposition: Discharge to home or self care 10/21/2024 8:45 AM CDT Pre-Admission Testing [facility] Pre Anesthesia Testing [address] [place] [address] Encounter for preadmission testing (Primary Dx) 10/03/2024 Orders Only [facility] Cardiac [facility]atheterization [facility] [address] [place] [address] Leonel Moreno MD Aortic stenosis, severe (Primary Dx) 10/03/2024 Documentation Cardiology Aaliyah Toribio, KINDRA 10/01/2024 2:45 PM CDT Office Visit [facility] Medicine Surgery [id number] [place] [address] [address] [place] [id number] Don Guerrero MD Aortic valve stenosis, etiology of cardiac valve disease unspecified (Primary Dx); Nonrheumatic aortic valve stenosis 10/01/2024 Documentation Cardiothoracic Surgery Aaliyah Toribio, RN 09/20/2024 Results Follow-Up [facility] Cardiology [address] [facility] [address] [address] TAVR 09/19/2024 8:39 AM CDT - 09/19/2024 11:59 PM CDT Hospital Encounter [facility] Imaging and Radiology [address] [place] [address] Aortic stenosis, severe Discharge Disposition: Discharge to home or self care from Last 3 Months Immunizations Immunization Administration [...] nephrectomy BACK SURGERY for sciatic nerve APPENDECTOMY OTHER SURGICAL HISTORY 03/08/2023 Sleep Endoscopy CARDIAC CATHETERIZATION 09/05/2024 N/A Procedure: LEFT HEART CATHETERIZATION WITH CORONARY ANGIOGRAPHY AND WITH OR WITHOUT LEFT VENTRICULOGRAM [id number]; Surgeon: Leonel Moreno MD; 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; Service: Cardiovascular; Laterality: N/A; Pt will be having an echo in the holding area precath as well same day CARDIAC CATHETERIZATION 09/05/2024 N/A Procedure: ULTRASOUND GUIDANCE FOR VASCULAR ACCESS S&I [id number]; Surgeon: Leonel Moreno MD; 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 Medical History Medical History Date Comments Hypertension Hypertension Hypothyroidism Hypothyroidism Adiposity Obesity Heart murmur Depression Sleep disorder Hypercholesteremia Hearing loss Bronchitis Kidney stone Arthritis Allergic rhinitis Vitamin D deficiency Coronary artery disease invo lving akutan coronary artery of akutan heart without angina pectoris 03/30/2016 Coronary artery disease invo lving akutan coronary artery of akutan heart without angina pectoris PVC's (premature ventricular contractions) 10/16/2015 PVC's (premature ventricular contractions) Asymmetric septal hypertrophy 2018 Nonrheumatic aortic valve stenosis 12/11/2018 Mixed hyperlipidemia 04/01/2021 Coronary artery spasm 03/08/2016 Hypotension 03/04/2016 Sensorineural hearing loss ( SNHL) of both ears 02/16/2021 Vestibular dysfunction of both ears 02/16/2021 Right-sided low back pain wi thout sciatica 01/04/2021 DEANA on CPAP 10/16/2015 has Insprosie hinojosa ce, no longer wears CPAP Chronic fatigue 12/06/2016 Right lower lobe pneumonia Graves disease 05/30/2023 Heart disease GERD (gastroesophageal reflux disease) Anemia Aortic stenosis Ventricular bigeminy seen on cardiac cath lab radiology technologist holter monitor Ventricular trigeminy seen on ho lter monitor Unsteady gait pateint-reported Hyponatremia Osteoporosis SIADH (syndrome of inappropr iate ADH production) SNHL (sensorineural hearing loss) Blood in stool Acute cystitis without hematuria Episode of confusion can happen when feeling anxious or under stress Dizziness SOB (shortness of breath) on exertion History of transfusion 1986 or s o H/O partial nephrectomy Difficulty swallowing Chronic constipation Family History Medical History Relation Name Comments Depression Daughter Richardson Jack Heart attack Father [place]; Cause of De ath: [place] Hearing loss Mother Valery Heart attack Mother Valery [place]; Cause of De ath: [place] Thyroid disease Mother Valery Heart disease Sister Nataliia heart problems ; Alzheimer's disease Neg Hx Anesthesia problems Neg Hx Dementia Neg Hx Malig Hypertension Neg Hx Malig Hyperthermia Neg Hx Pseudochol deficiency Neg Hx Relation Name Status Comments Daughter Richardson Jack Father Alive Mother Valery (Age 65) Sister Nataliia Alive Social History Tobacco Use Types Packs/Day Years Used Date Smoking Tobacco: Never Smokeless Tobacco: Never Tobacco Cessation:Counseling Given: Not Answered Alcohol Use Standard Drinks/Week Comments No 0 (1 standard drink = 0.6 oz pur e alcohol) AUDIT-C Answer Date Recorded Q1: How often do you have a drink containing alcohol? Never 10/21/2024 Q2: How many drinks containi ng alcohol do you have on a typical day when you are drinking? Patient does not drink Q3: How often do you have si x or more drinks on one occasion? Never 10/21/2024 PHQ-2 Answer Date Recorded PHQ-2 Total Score (If total score is 3 or more points, staff should administer the PHQ-9) 6 01/04/2021 Personal Safety Answer Date Recorded Have you ever been in or are you currently in a harmful physical or emotional relationship or is someone making you feel afraid or unsafe? 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 Gender Identity Not on file Sexual Orientation Not on file Occupation Industry Job Start Date Job End Date [employer] Not on file Not on file Not [...] Sign Reading Time Taken Comments Blood Pressure 118/65 10/29/2024 11:35 AM CDT Pulse 61 10/29/2024 11:35 AM CDT Temperature 36.7 C (98.1 F) 10/29/2024 11:35 AM CDT Respiratory Rate 18 10/29/2024 11:35 AM CDT Oxygen Saturation 95% 10/29/2024 11:35 AM CDT Inhaled Oxygen Concentration - - Weight 71.4 kg (157 lb 8 oz) 10/28/2024 5:36 AM CDT Height 170.2 cm (5' 7) 10/28/2024 5:36 AM CDT Body Mass Index 24.67 10/28/2024 5:36 AM CDT Plan of Treatment Health Maintenance Due Date Last Done Comments Osteoporosis Screening-Bone Density Scan 1945 DTaP/Tdap/Td Vaccine (1 - Tdap) 1954 Hepatitis B Screening 1961 Well Visit 65+ 2008 Zoster Vaccine (2 of 3) 09/21/2014 07/27/2014 Depression Screening 01/04/2022 01/04/2021, 01/05/20 21 Influenza Vaccine (#1) 2024 9, 02/03/2018, 01/25/2017, Additional history exists Fall Risk Assessment 10/29/2025 10/29/2024 Pneumococcal vaccine 65+ Completed 02/23/2017, 12/23 Medical Devices Implanted Type Area Health Lead Device Identifier Shelf Expiration Date Model / Serial / Lot [employer] Lead Neurostimulator Sleep Apnea Thoracic Permanent Respiratory Sensing Inspire 43cm 4340 - [id number] - [id number] Implanted:Qty: 1 on 09/13/2023 by Lizzy Lazaro MD at [facility] Right: Chest [employer] 01/30/2026 4340 / [id number] / [employer] Inspire 3 Electrode Cuff Tunnel Juan Lead Neurostimulator Sterile 4063 - [id number] - [id number] Implanted:Qty: 1 on 09/13/2023 by Lizzy Lazaro MD at [facility] Right: Neck [employer] 12/18/2025 4063 / [id number] / [employer] Inspire Generator 3028 - [id number] - [id number] Implanted:Qty: 1 on 09/13/2023 by Lizzy Lazaro MD at [facility] Right: Chest [employer] 07/28/2025 3028 / [id number] / [employer]ann V[employer] System Closure Repair Femoral Artery Suture Mediated Perclose Prostyle 53872-06 - [id number] Implanted:Qty: 1 on 10/28/2024 by Leonel Moreno MD at [facility] [employer] 08/21/2026 1 277- / / [id number] Vann Vascular System Closure Repair Femoral Artery Suture Mediated Perclose Prostyle 79776-46 - [id number] Implanted:Qty: 1 on 10/28/2024 by Leonel Moreno MD at [facility] [employer] 08/21/2026 1 277- / [id number] Access Closure Inc Device 10ml 5fr Closure Mynx Control 2 Mode Balloon Catheter [id number] - [id number] Implanted:Qty: 1 on 10/28/2024 by Leonel Moreno MD at [facility] [employer] 09/12/2026 [id number] / / [id number] Procedures Procedure Name Priority Date/Time Associated Diagnosis Comments TRANSTHORACIC ECHO (TTE) COMPLETE W DOPPLER/CF WO CONTRAST Routine 10/29/2024 7:35 AM CDT XR CHEST 1 VIEW Routine 10/29/2024 6:41 AM CDT ECG 12-LEAD Routine 10/29/2024 6:34 AM CDT EGFR Routine 10/29/2024 4:25 AM CDT DIFFERENTIAL AUTO Routine 10/29/2024 4:2 5 AM CDT APTT Routine 10/29/2024 4:25 AM CDT PROTIME-INR Routine 10/29/2024 4:25 AM CDT CBC WITH AUTO DIFFERENTIAL Routine 10/29/2024 4:25 AM CDT PRO B-TYPE NATRIURETIC PEPTIDE Routine 10/29/2024 4:25 AM CDT COMPREHENSIVE METABOLIC PANEL Routine 10/29/2024 4:25 AM CDT MAGNESIUM Routine 10/29/2024 4:25 AM CDT XR CHEST 1 VIEW Routine 10/28/2024 10:57 AM CDT TRANSCATHETER AORTIC VALVE REPLACEMENT (TAVR) OPEN FEMORAL ART APPROACH Routine 10/28/2024 9:59 AM CDT Aortic stenosis, severe POCT ACTIVATED CLOTTING TIME, HIGH RANGE Routine 10/28/2024 9:15 AM CDT POCT ACTIVATED CLOTTING TIME, HIGH RANGE Routine 10/28/2024 9:05 AM CDT POCT ACTIVATED CLOTTING TIME, HIGH RANGE Routine 10/28/2024 8:56 AM CDT B CHECK SAMPLE STAT 10/28/2024 5:55 AM CDT PREPARE RBC STAT 10/28/2024 5:20 AM CDT ECG 12-LEAD Routine 10/21/2024 10:07 AM CDT Encounter for preadmission testing XR CHEST PA LATERAL 2 VIEWS IP Routine 10/21/2024 9:59 AM CDT EGFR Routine 10/21/2024 9:58 AM CDT DIFFERENTIAL AUTO Routine 10/21/2024 9:5 8 AM CDT APTT Routine 10/21/2024 9:58 AM CDT PROTIME-INR Routine 10/21/2024 9:58 AM CDT COMPREHENSIVE METABOLIC PANEL Routine 10/21/2024 9:58 AM CDT CBC WITH AUTO DIFFERENTIAL Routine 10/21/2024 9:58 AM CDT TYPE AND SCREEN Timed 10/21/2024 9:[address] TAVR Schedule Routine, Read Routine (OP Routine) 09/19/2024 9:44 AM CDT Aortic stenosis, severe POCT CREATININE FOR CONTRAST EVALUATION Routine 09/19/2024 9:15 AM CDT from Last 3 Months Results * TRANSTHORACIC ECHO (TTE) COMPLETE W DOPPLER/CF WO CONTRAST (10/29/2024 7:35 AM CDT) Estimated EF % % CONS SCIMAGE EF Mod BP 75 % CONS SCIMAGE Anatomical Region Laterality Modality Ultrasound 10/29/2024 7:03 AM CDT Narrative 10/29/2024 9:32 [place] [address] Echocardiogram Report Patient Name: KAYLIE LOGAN D : 1945 Study Date: 10/29/2024 7:03:22 AM Gender: F Tech: Location: [id number] Provider: LEONEL MORENO Height(Cm): 170 BSA: 1.83 Weight(Kg): 71 Heart Rate: 55 BP: 138 / 63 Quality: Good Order Provider: LEONEL MORENO PROCEDURES: Echocardiographic Report: Transthoracic echocardiogram with complete 2D, M-Mode, and color Doppler examination. INDICATIONS: TAVR 29mm Medtronic Evolut FX +. MEASUREMENTS: 2D/MM Value Range Doppler Value Range EF Teich 2D 63.6 percent [ 54.0 - 74.0 ] MALATHI Vmax 2.52 cm2 EF Mod BP 75 % [ 54 - 74 ] AV Mean PG 11 mmHg Estimated EF % AV Peak Jonathan 2.39 m/s [ 1.00 - 1.70 ] LVIDd 2D 4.97 cm [ 3.80 - 5.20 ] AV VTI 54.75 cm LVIDs 2D 3.25 cm [ 2.20 - 3.50 ] LVOT Diam 2.31 cm LVPWd 2D 1.22 cm [ 0.60 - 0.90 ] LVOT Peak Jonathan 1.39 m/s [ 0.70 - 1.10 ] IVSd 2D 1.12 cm [ 0.60 - 0.90 ] LVOT VTI 33.38 cm LA Dimension 2D 2.77 cm [ 2.70 - 3.80 ] SI LVOT 78.8 ml/m2 [ >= 35.0 ] AoR Diam 2D 3.43 cm [ 2.70 - 3.70 ] MV E Peak Jonathan 0.85 m/s [ 0.60 - 1.30 ] LA Volume Index 48.76 cc/m2 [ 16.00 - 34.00 ] MV A Peak Jonathan 0.96 m/s [ 1.00 - 1.20 ] MV Mean PG 2 mmHg MV PHT 86 msec [ 20 - 100 ] MVA PHT 2.55 cm2 MV Decel Time 315 msec [ 104 - 258 ] PV Peak Jonathan 1.01 m/s [ 0.40 - 0.80 ] TR Peak Jonathan 2.36 m/s [ 1.00 - 2.80 ] TR Peak PG 22 mmHg E` 0.06 m/s E/E` 8.83 2D/MM Value Range Doppler Value Range - FINDINGS: Atrial Septum: Normal atrial septum. Left Ventricle: Normal left ventricular size. Mild concentric left ventricular hypertrophy. Hyperdynamic left ventricular function. No focal wall motion abnormalities. Impaired diastolic relaxation Grade I. Ejection fraction is measured at 75 %. Left Atrium: There is mild enlargement of left atrium. Right Ventricle: Normal right ventricular size. Normal right ventricular systolic function. Right Atrium: The right atrium is normal in size. Aortic Valve: No evidence of hemodynamically significant aortic stenosis by Doppler. Mild aortic valve regurgitation. Gradients normal for valve type and size. Normal appearing aortic valve bioprosthesis. Mitral Valve: Mitral valve leaflets appear mildly thickened. Trivial regurgitation of the mitral valve. Pulmonic Valve: Normal structure of the pulmonic valve. Mild pulmonic regurgitation. Tricuspid Valve: Normal structure of the tricuspid valve. Normal right ventricular systolic pressure. Trivial regurgitation in the tricuspid valve. Pericardium: Normal pericardium with no significant pericardial effusion. Aorta: Descending aorta is normal. There is mild atherosclerosis in the aortic root. IVC: Normal size and normal respiratory collapse consistent with normal right atrial pressure (<5 mmHg). Pulmonary Artery: Pulmonary artery not well visualized. CONCLUSIONS: Normal left ventricular size. Mild concentric left ventricular hypertrophy. Hyperdynamic left ventricular function. No focal wall motion abnormalities. Impaired diastolic relaxation Grade I. Ejection fraction is measured at 75 %. Normal right ventricular size. Normal right ventricular systolic function. There is mild enlargement of left atrium. Mitral valve leaflets appear mildly thickened. Trivial regurgitation of the mitral valve. No evidence of hemodynamically significant aortic stenosis by Doppler. Mild eccentric aortic valve regurgitation. Gradients normal for valve type and size. Normal appearing aortic valve bioprosthesis. Normal structure of the tricuspid valve. Normal right ventricular systolic pressure. Trivial regurgitation in the tricuspid valve. Normal pericardium with no significant pericardial effusion. Electronically Signed By: Nina Lai MD 10/29/2024 9:31:54 AM CDT Procedure Note Nina Lai MD - 10/29/2024 [place] [id number] Echocardiogram Report Patient Name: KAYLIE LOGAN D : 1945 Study Date: 10/29/2024 7:03:22 AM Gender: F Tech: Location: [id number] Ref Provider: LEONEL MORENO Height(Cm): 170 BSA: 1.83 Weight(Kg): 71 Heart Rate: 55 BP: 138 / 63 Quality: Good Order Provider: LEONEL MORENO PROCEDURES: Echocardiographic Report: Transthoracic echocardiogram with complete 2D, M-Mode, and color Dopplerexamination. INDICATIONS: TAVR 29mm Medtronic Evolut FX +. MEASUREMENTS: 2D/MM Value Range DopplerValue Range EF Teich 2D 63.6 percent [ 54.0 - 74.0 ] MALATHI Vmax2.52 cm2 EF Mod BP 75 % [ 54 - 74 ] AV Mean PG11 mmHg Estimated EF % AV Peak Vel2.39 m/s [ 1.00 - 1.70 ] LVIDd 2D 4.97 cm [ 3.80 - 5.20 ] AV VTI54.75 cm LVIDs 2D 3.25 cm [ 2.20 - 3.50 ] LVOT Diam2.31 cm LVPWd 2D 1.22 cm [ 0.60 - 0.90 ] LVOT Peak Vel1.39 m/s [ 0.70 - 1.10 ] IVSd 2D 1.12 cm [ 0.60 - 0.90 ] LVOT VTI33.38 cm LA Dimension 2D 2.77 cm [ 2.70 - 3.80 ] SI LVOT78.8 ml/m2 [ >= 35.0 ] AoR Diam 2D 3.43 cm [ 2.70 - 3.70 ] MV E Peak Vel0.85 m/s [ 0.60 - 1.30 ] LA Volume Index 48.76 cc/m2 [ 16.00 - 34.00 ] MV A Peak Vel0.96 m/s [ 1.00 - 1.20 ] MV Mean PG 2 mmHg MV PHT 86 msec [ 20 - 100 ] MVA PHT 2.55 cm2 MV Decel Time 315 msec [ 104 - 258 ] PV Peak Jonathan 1.01 m/s [ 0.40 - 0.80 ] TR Peak Jonathan 2.36 m/s [ 1.00 - 2.80 ] TR Peak PG 22 mmHg E` 0.06 m/s E/E` 8.83 2D/MM Value Range DopplerValue Range - FINDINGS: Atrial Septum: Normal atrial septum. Left Ventricle: Normal left ventricular size. Mild concentric left ventricularhypertrophy. Hyperdynamic left ventricular function. No focal wall motion abnormalities. Impaireddiastolic relaxation Grade I. Ejection fraction is measured at 75 %. Left Atrium: There is mild enlargement of left atrium. Right Ventricle: Normal right ventricular size. Normal right ventricular systolicfunction. Right Atrium: The right atrium is normal in size. Aortic Valve: No evidence of hemodynamically significant aortic stenosis by Doppler.Mild aortic valve regurgitation. Gradients normal for valve type and size. Normal appearingaortic valve bioprosthesis. Mitral Valve: Mitral valve leaflets appear mildly thickened. Trivial regurgitation ofthe mitral valve. Pulmonic Valve: Normal structure of the pulmonic valve. Mild pulmonic regurgitation. Tricuspid Valve: Normal structure of the tricuspid valve. Normal right ventricular systolicpressure. Trivial regurgitation in the tricuspid valve. Pericardium: Normal pericardium with no significant pericardial effusion. Aorta: Descending aorta is normal. There is mild atherosclerosis in the aorticroot. IVC: Normal size and normal respiratory collapse consistent with normal rightatrial pressure (<5 mmHg). Pulmonary Artery: Pulmonary artery not well visualized. CONCLUSIONS: Normal left ventricular size. Mild concentric left ventricularhypertrophy. Hyperdynamic left ventricular function. No focal wall motion abnormalities. Impaireddiastolic relaxation Grade I. Ejection fraction is measured at 75 %. Normal right ventricular size. Normal right ventricular systolicfunction. There is mild enlargement of left atrium. Mitral valve leaflets appear mildly thickened. Trivial regurgitation ofthe mitral valve. No evidence of hemodynamically significant aortic stenosis by Doppler.Mild eccentric aortic valve regurgitation. Gradients normal for valve type and size.Normal appearing aortic valve bioprosthesis. Normal structure of the tricuspid valve. Normal right ventricular systolicpressure. Trivial regurgitation in the tricuspid valve. Normal pericardium with no significant pericardial effusion. Electronically Signed By: Nina Lai MD 10/29/2024 9:31:54 AM CDT us Leonel Moreno MD CV ECHO PROCEDURES Final Result * X-ray chest 1 view (Portable) (10/29/2024 6:41 AM CDT) Anatomical Region Laterality Modality Body, Chest N/A Computed Radiogr aphy 10/29/2024 11:0 8 AM CDT Impressions 10/29/2024 11:08 AM CDT No failure. Electronically signed by: Se Zuniga M.D. Narrative 10/29/2024 11:08 AM CDT EXAMINATION: XR CHEST 1 VIEW HISTORY: The patient is an 79-year-old female who has had a TAVR procedure. TECHNIQUE: AP portable view of the chest is compared with the previous study dated 10/28/2024. FINDINGS: Borderline cardiomegaly with aortic atherosclerosis. No failure. TAVR device in place. Lungs clear. There is a hypoglossal nerve stimulator noted in situ. Procedure Note Se Zuniga MD - 10/29/2024 EXAMINATION: XR CHEST 1 VIEW HISTORY: The patient is an 79-year-old female who has had a TAVR procedure. TECHNIQUE: AP portable view of the chest is compared with the previous study dated 10/28/2024. FINDINGS: Borderline cardiomegaly with aortic atherosclerosis. No failure. TAVR device in place. Lungs clear. There is a hypoglossal nerve stimulator noted in situ. IMPRESSION: No failure. Electronically signed by: Se Zuniga M.D. Leonel Moreno MD IMG XR PROCEDURES Final Result * ECG 12 lead (10/29/2024 6:34 AM CDT) 10/29/2024 6:34 AM CDT Narrative [facility] - 10/29/2024 9:35 AM CDT Vent Rate: 60 bpm RR Interval: 997 msec UT Interval: 254 msec QRS Duration: 105 msec QT Interval: 410 msec QTC Interval: 410 msec P-R-T [place]: 48 - -15 - 86 degrees IMPRESSION: SINUS RHYTHM WITH FIRST DEGREE AV BLOCK MINIMAL VOLTAGE CRITERIA FOR LVH, CONSIDER NORMAL VARIANT NONSPECIFIC T-WAVE ABNORMALITY ABNORMAL ECG No change compared to prior EKG Electronically Signed By: Gasper Guillory MD [facility] Leonel Moreno MD ECG ORDERABLES Final Result [facility] * eGFR (10/29/2024 4:25 AM CDT) eGFR 66 >=60 mL/min/1. 73 m2 Comment: Interpretive Data Reference Interval Normal >/= 90 mL/min/1.73m2 Mildly decreased* 60 - 89 mL/min/1.73m2 Mildly to moderately decreased 45 - 59 mL/min/1.73m2 Moderately to severely decreased 30 - 44 mL/min/1.73m2 Severely decreased 15 - 29 mL/min/1.73m2 Kidney Failure < 15 mL/min/1.73m2 *Relative to young adult level Estimated glomerular filtration rate is determined by the 2020 CKD-EPI equation recommended by the National Kidney Foundation (A Unifying Approach to GFR Estimation: Recommendations of the NKF-ASK Task Force on Reassessing the Inclusion of Race in Diagnosing Kidney Disease, JASN 202). The CKD-EPI equation should not be used for patients with unstable renal function and has not been validated in children and those over 70. Current interpretive data was last reviewed 2021. Blood 10/29/2024 4:25 AM CDT 10/29/2024 4:57 AM CDT us Leonel Moreno MD LAB BLOOD ORDERABLES Final Resul t JACOB [address] Department [place] [address] * (ABNORMAL) Differential, auto (10/29/2024 4:25 AM CDT) Neutrophil abs 5.77 1.50 - 6.50 K/cumm Imm gran abs 0.03 0.00 - 0.10 K/cumm [facility] Lymphocyte abs 1.99 0.80 - 3.30 K/cumm [facility] Monocyte abs 1.00(H) 0.20 - 0.80 K/cumm [facility] Eosinophil abs 0.06 0.00 - 0.50 K/cumm [facility] Basophil abs 0.02 0.00 - 0.10 K/cumm [facility] Neutrophil pct 65.1 % [facility] Comment: Interpretive Data Percent cell count reference ranges are not reported, since discordance with absolute values may lead to misinterpretation of CBC data. Current Interpretive Data was last revised on 2017. Imm gran pct 0.3 % [facility] Comment: Interpretive Data Percent cell count reference ranges are not reported, since discordance with absolute values may lead to misinterpretation of CBC data. Current Interpretive Data was last revised on 2017. Lymphocyte pct 22.4 % [facility] Comment: Interpretive Data Percent cell count reference ranges are not reported, since discordance with absolute values may lead to misinterpretation of CBC data. Current Interpretive Data was last revised on 2017. Monocyte pct 11.3 % [facility] Comment: Interpretive Data Percent cell count reference ranges are not reported, since discordance with absolute values may lead to misinterpretation of CBC data. Current Interpretive Data was last revised on 2017. Eosinophil pct 0.7 % [facility] Comment: Interpretive Data Percent cell count reference ranges are not reported, since discordance with absolute values may lead to misinterpretation of CBC data. Current Interpretive Data was last revised on 2017. Basophil pct 0.2 % [facility] Comment: Interpretive Data Percent cell count reference ranges are not reported, since discordance with absolute values may lead to misinterpretation of CBC data. Current Interpretive Data was last revised on 2017. Blood 10/29/2024 4:25 AM CDT 10/29/2024 4:58 AM CDT us Leonel Moreno MD LAB BLOOD ORDERABLES Final Resul t Performing Organization Address City/State/ZIP Co co Phone Number JACOB [address] Department [place] [address] * (ABNORMAL) Pro B-type natriuretic peptide (10/29/2024 4:25 AM CDT) NT-proBNP 1,325(H) <=450 pg/mL Comment: Interpretive Comments: A. Dyspnea in Acute Care Setting All Ages: < 300 pg/ml, acute heart failure unlikely. < 50 yrs: 300 - 450 pg/ml, further investigation warranted. > 450 pg/ml, acute heart failure likely. 50 - 74 yrs: 300 - 900 pg/ml, further investigation warranted. > 900 pg/ml, acute heart failure likely . > or = 75 yrs: 450 - 1800 pg/ml, further investigation warranted. > 1800 pg/ml, acute heart failure likely. B. Non-acute Setting < 75 yrs < 125 pg/ml, rules out heart failure. > or = 125 pg/ml, further investigation warranted. > or = 75 yrs < 450 pg/ml, rules out heart failure. > or = 450 pg/ml, further investigation warranted. - Knowledge of each individual patient's NT-proBNP range may be more useful than using similar cut-points for every patient. Please note that marked elevations in NT-proBNP levels may be observed in state other than Left Ventricular Congestive Failure, including: acute coronary syndromes, right heart strain/failure (including pulmonary embolism and cor pulmonale), critical illness, renal failure, as well as advanced age. - References: 1. Carly COTA et.al. Eur Heart J. 2006:27:330-337. 2. Mike RW, Julia AVALOS. J. AM Gregg Cardiol: Cardiovasc Imag. 2009;2: 216- 225. Interpretive Data Last Revised Date: 2017. Blood 10/29/2024 4:25 AM CDT 10/29/2024 4:57 AM CDT Leonel Moreno MD LAB BLOOD ORDERABLES Final Resul t Performing Organization Address [facility] Co de Phone Number JACOB [address] Department [employer] [place], [place] [id number] * (ABNORMAL) CBC with auto differential (10/29/2024 4:25 AM CDT) WBC 8.87 3.80 - 9.90 K/cumm Hgb 10.5(L) 11.9 - 15.5 g/dL [facility] Hct 31.8(L) 35.6 - 45.5 % [facility] Plt 163 150 - 400 K/cumm [facility] CH MPV 9.2 9.1 - 12.3 fL [facility] RBC 3.35(L) 3.90 - 5.20 M/cumm [facility] CH MCV 94.9 81.3 - 96.[address] [facility] MCH 31.3 27.1 - 33.[address] [facility] MCHC 33.0 32.3 - 35.7 g/dL [facility] RDW CV 13.7 11.1 - 14.9 % [facility] RDW SD 48.0 35.7 - 48.1 fL [facility] NRBC abs 0.00 0.00 - 0.01 K/cumm [facility] Blood 10/29/2024 4:25 AM CDT 10/29/2024 4:58 AM CDT Leonel Moreno MD LAB BLOOD ORDERABLES Final Resul t Performing Organization Address City/[facility]/ZIP Co de Phone Number JACOB [address] [place] [employer] [place] [address] * aPTT (10/29/2024 4:25 AM CDT) aPTT 29 28 - 38 sec Comment: Interpretive Data Heparin therapeutic range: 66.0 - 100.0 seconds. Range based on correlation with therapeutic heparin activity range of 0.3 - 0.7 Units/mL. Current interpretive data was last revised on 2023. Blood 10/29/2024 4:25 AM CDT 10/29/2024 4:57 AM CDT Result Brennan Moreno MD LAB BLOOD ORDERABLES Final Resul t Performing Organization Address [facility] de Phone Number [facility] [address] [facility] [place] [employer] [place] [address] * Protime-INR (10/29/2024 4:25 AM CDT) PT 12.1 9.7 - 13.0 sec INR 1.12 0.90 - 1.20 JACOB Comment: Interpretive data Oral anticoagulant therapeutic ranges: Venous thromboembolism prophylaxis or treatment: 2.0-3.0 CARDIOLOGY Standard range: 2.0-3.0 High-intensity range: 2.5-3.5 Refer to indication-specific guidelines for appropriate target ranges for prosthetic heart valve replacement. Current interpretive data was last revised on 2019. Blood 10/29/2024 4:25 AM CDT 10/29/2024 4:57 AM CDT Result Brennan Moreno MD LAB BLOOD ORDERABLES Final Resul t Performing Organization Address [facility] de Phone Number [facility] [address] [facility] [place] [employer] [place] [address] * Magnesium (10/29/2024 4:25 AM CDT) Magnesium 1.7 1.4 - 2.5 mg/dL Blood 10/29/2024 4:25 AM CDT 10/29/2024 4:57 AM CDT us Leonel Moreno MD LAB BLOOD ORDERABLES Final Resul t Performing Organization Address [facility] de Phone Number [facility] [address] [facility] [place] [employer] [place] [address] * (ABNORMAL) Comprehensive metabolic panel (10/29/2024 4:25 AM CDT) Sodium 138 135 - 145 mmol/L Potassium, pl 3.6 3.3 - 4.9 mmol/L [facility] Chloride 103 97 - 110 mmol/L [facility] CO2 25 22 - 32 mmol/L [facility] Anion gap 10 2 - 15 mmol/L [facility] BUN 17 6 - 25 mg/dL [facility] Creatinine 0.88 0.60 - 1.10 mg/dL [facility] Glucose 83 70 - 199 mg/dL [facility] Comment: Interpretive Data Fasting glucose >/= 126 mg/dl is diagnostic for diabetes. Fasting is defined as no caloric intake for at least 8 hours. Fasting glucose between 100 mg/dl to 125 mg/dl is diagnostic of prediabetes. In a patient with classic symptoms of hyperglycemia or hyperglycemic crisis, a random glucose >/= 200 mg/dl is diagnostic for diabetes. In the absence of unequivocal hyperglycemia, results should be confirmed by repeat testing. The classification and Diagnosis of Diabetes Diabetes Care 2021; 46: S19-S40. Current interpretive data was last revised 2022. Calcium 8.7 8.5 - 10.3 mg/dL [facility] Bilirubin, total 0.6 0.1 - 1.2 mg/dL [facility] Protein, pl 6.0(L) 6.5 - 8.5 g/dL [facility] Albumin 3.6 3.5 - 5.0 g/dL [facility] Alk phos 64 40 - 130 Units/L [facility] ALT 15 7 - 45 Units/L [facility] AST 91(H) 10 - 45 Units/L [facility] Blood 10/29/2024 4:25 AM CDT 10/29/2024 4:57 AM CDT us Leonel Moreno MD LAB BLOOD ORDERABLES Final Resul t JACOB [address] Department [place] [address] * X-ray chest 1 view (Portable) (10/28/2024 10:57 AM CDT) Anatomical Region Laterality Modality Body, Chest N/A Computed Radiogr aphy 10/28/2024 11:0 2 AM CDT Impressions 10/28/2024 11:02 AM CDT No failure. Electronically signed by: Se Zuniga M.D. Narrative 10/28/2024 11:02 AM CDT EXAMINATION: XR CHEST 1 VIEW HISTORY: The patient is an 79-year-old female who has had a TAVR procedure. Comparison is made with the previous study dated 10/21/2024. TECHNIQUE: AP portable view of the chest. FINDINGS: There is a TAVR device in place. Lungs clear. Heart not enlarged. Aortic atherosclerosis. No failure. Hypoglossal nerve stimulator lead is seen in good position. Procedure Note Se Zuniga MD - 10/28/2024 EXAMINATION: XR CHEST 1 VIEW HISTORY: The patient is an 79-year-old female who has had a TAVR procedure. Comparison is made with the previous study dated 10/21/2024. TECHNIQUE: AP portable view of the chest. FINDINGS: There is a TAVR device in place. Lungs clear. Heart not enlarged. Aortic atherosclerosis. No failure. Hypoglossal nerve stimulator lead is seen in good position. IMPRESSION: No failure. Electronically signed by: Se Zuniga M.D. us Leonel Moreno MD IMG XR PROCEDURES Final Result * TRANSCATHETER AORTIC VALVE REPLACEMENT (TAVR) OPEN FEMORAL ART APPROACH (10/28/2024 9:59 AM CDT) Anatomical Region Laterality Modality X-Ray Angiograph y Addenda Addendum by Leonel Moreno MD on 10/28/2024 10:34 AM CDT TRANSCATHETER AORTIC VALVE REPLACEMENT (TAVR) REPORT DATE OF PROCEDURE: 10/28/24 INDICATION FOR PROCEDURE: Severe symptomatic aortic stenosis with multiple comorbidities BRIEF CLINICAL HISTORY: Kaylie Logan is a 79 y.o. female with severe aortic stenosis, history of nonobstructive CAD, hypertension. Patient has been experiencing worsening dyspnea for last few months associated with occasional dizziness without syncope. Recent echo from 09/05/2024 showed LVH, preserved LV systolic function, severely calcified aortic valve with restricted leaflet mobility, severe , V max 4 m/sec, mean gradient 42 mmHg, calculated MALATHI 0.8 cm2. Subsequently, patient was had pre TAVR cardiac catheterization and peripheral angiogram on the same day which showed mild plaque in mid LCX; small fusiform distal AAA. Patient had heart team evaluation and was deemed to be an appropriate candidate for TAVR. The benefits, risks and alternatives to the TAVR procedure were explained to the patient, including the potential for serious complications, especially stroke and . The patient understood the procedure(s) and alternatives, acknowledged the risks, and agreed to proceed. Risks of the procedure include but are not limited to vascular complications like groin hematoma, retroperitoneal bleed, vessel perforation; periprocedural FL, stroke; cardiac arrhythmias including conduction abnormality requiring pacemaker placement; contrast induced nephropathy, . Informed consent was taken prior to the procedure. PROCEDURES PERFORMED: Successful transcatheter aortic valve replacement (TAVR with pre TAVR balloon aortic valvuloplasty to facilitate advancement of the valve) using 29 mm Medtronic Evolut FX+ transcatheter aortic valve Aortogram Distal abdominal aortogram with bilateral iliac runoff Selective right common femoral angiogram Deployment of 2 ProGlide suture mediated hemostatic devices at right common femoral artery access site and Mynx vascular closure device at left common femoral arterial access site [employer]OD TURNING LATHE OPERATOR: Mike Johnson MD (CT surgeon) SEDATION: MAC (see separate note from anesthesiology) ACCESS SITES: Right and left common femoral arteries; left common femoral vein PROCEDURE: After obtaining informed consent, patient was brought to the labor trainer and prepped and draped in the usual sterile manner. Patient was placed under MAC by the anesthesiology team. Right common femoral artery access was taken with micropuncture needle under ultrasound guidance followed by insertion of a 6 Kuwaiti sheath over a 0.035 inch wire. Left common femoral venous access was taken with a micropuncture needle under ultrasound guidance followed by insertion of a 6 Kuwaiti long sheath. Left common femoral artery access was taken with micropuncture needle under ultrasound guidance followed by insertion of 5 Kuwaiti sheath. A balloon tipped transvenous pacemaker was placed through the venous sheath. Pacing thresholds were checked. A 5 Kuwaiti angled pigtail was advanced to the left common femoral artery access site into the aortic root, and was positioned in the noncoronary cusp. Aortogram was performed. Next, the right 6 [place]i sheath was taken out of the right femoral artery, and 2 ProGlide suture mediated hemostatic devices [place]. [place] [id number] [place] of heparin for procedural anticoagulation, ACT was monitored throughout the procedure. After serial dilations, 14 [place]i Medtronic sheath was advanced into the right common femoral artery access site under fluoroscopic guidance. After this, 5 Kuwaiti AL1 catheter was advanced into the aortic root. There was difficulty in crossing the stenotic aortic valve with a straight tip Glidewire. The AL1 catheter and a Glidewire was taken out, and JR4 catheter with a straight tip wire was advanced and after few attempts, the aortic valve was crossed. There was significant difficulty in advancing the AL1 catheter into the LV cavity indicating severely calcific valve. After this, the AL1 catheter was taken out and it was exchanged with a pigtail catheter. LVEDP was measured at 14 mmHg. After this, pigtail catheter was taken out over the safari wire. Due to the significant calcification and difficulty in advancing the catheters through the stenotic aortic valve, we proceeded with the balloon aortic valvuloplasty, which was performed using a 16 x 4.0 Tyshak II balloon. Balloon aortic valvuloplasty was performed while rapidly pacing RV at 160 beats per minute. Next, the 14 [place]i sheath was taken out under fluoroscopic guidance while maintaining the wire in the LV cavity. After this, Medtronic CoreValve delivery device along with inline sheath catheter was advanced through the aortic valve. The position of the valve was confirmed. Next, the valve was deployed while RV pacing at 140-160 beats per minute. Pacing was stopped. Post implant echo showed no paravalvular leak and good position of the valve. Post implant mean transaortic gradient was measured at 8 mmHg; V max 1.8 m/sec. Aortic root angiogram was performed which did not show aortic regurgitation or any angiographically visible dissection. The delivery system was taken out, and hemostasis was achieved with deployment of 2 Perclose vascular closure devices. Patient received 50 mg of protamine IV. Aortogram was performed through the pigtail catheter which showed preserved flow in bilateral iliac and common femoral arteries without any angiographically visible dissection or distal embolization. Previously noted infrarenal AAA was noted, no changes compared to the previous angiogram. Hemostasis was achieved in the left common femoral artery access site using Mynx control vascular closure device. The temporary pacemaker wire was taken out. Hemostasis at the left common femoral venous access was achieved with manual pressure. Patient remained in sinus rhythm and was transferred to the tele monitored bed in a hemodynamically stable condition. Patient tolerated procedure well without any immediate procedural complications. Patient's family was not available in the hospital postprocedure. I called patient's daughter over the phone and updated her about the successful procedure. CONCLUSIONS: Successful transcatheter aortic valve replacement (TAVR) using 29 mm Medtronic Evolut FX+ transcatheter aortic valve. PLAN/RECOMMENDATIONS: Patient will be admitted to the telemetry unit and will be monitored for any postprocedure vascular, cardiac or neurological complications. Heart rhythm will be monitored closely. EKG and echocardiogram will be performed during the hospitalization prior to discharge. Voice recognition software was used to complete this document, therefore, molder offbearer variances may occur. Leonel Moreno MD, [facility] 10/28/24 Leonel Moreno MD CV CARDIAC CATH PROCEDURES Edite d Result - Final * (ABNORMAL) POC Activated Clotting Time, High Range (10/28/2024 9:15 AM CDT) ACT 285(H) 87 - 138 sec POC Performer [id number] [facility] Blood 10/28/2024 9:15 AM CDT 10/28/2024 9:15 AM CDT Leonel Moreno MD LAB BLOOD ORDERABLES Final Resul t Performing Organization Address [facility]/ZIP Co de Phone Number MARCELINASENDY [address] Department [place] [address] * (ABNORMAL) POC Activated Clotting Time, High Range (10/28/2024 9:05 AM CDT) ACT 252(H) 87 - 138 sec POC Performer [id number] JACOB Blood 10/28/2024 9:05 AM CDT 10/28/2024 9:05 AM CDT Leonel Moreno MD LAB BLOOD ORDERABLES Final Resul t JACOB [address] [facility] [place] [employer] [place] [address] * (ABNORMAL) POC Activated Clotting Time, High Range (10/28/2024 8:56 AM CDT) ACT 217(H) 87 - 138 sec POC Performer [id number] [facility] Blood 10/28/2024 8:56 AM CDT 10/28/2024 8:56 AM CDT Leonel Moreno MD LAB BLOOD ORDERABLES Final Resul t Performing Organization Address [facility] Co de Phone Number JACOB [address] [facility] [place] [employer] [place] [address] * Check Sample (10/28/2024 5:55 AM CDT) Pathologist [facility] ABO Rh A Positive CH HCLL OTHER 10/28/2024 5:55 AM CDT 10/28/2024 6:31 AM CDT Leonel Moreno MD LAB BLOOD ORDERABLES Final Resul t Performing Organization Address [facility] de Phone Number JACOB [address] [facility] [place] [employer] [place] [address] CH * Prepare RBC: 2 Units (10/28/2024 5:20 AM CDT) Pathologist [facility] Product code [id number] [facility] Unit Number [id number] 9-1 [facility] Product Blood Type APOS [facility] Dispense Status RETURNED [facility] Product code [id number] Unit Number [id number] [id number] [facility] Product Blood Type APOS [facility] Dispense Status RETURNED [facility] Blood 10/28/2024 5:20 AM CDT Narrative [facility] - 10/29/2024 12:10 AM CDT Specify Procedure:->TAVR Are special requirements needed? (All products are leukoreduced and CMV- safe)- >No Date required:-[id number] LRRBC # of [id number] Reasons:-Hold for procedure (specify procedure)} Leonel Moreno MD BLOOD BANK PRODUCT ORDERABLES Fi nal Result Performing Organization Address [facility] Co de Phone Number JACOB [address] [place] [address] * ECG 12 lead (10/21/2024 10:07 AM CDT) 10/21/2024 10:0 7 AM CDT Narrative [facility] - 10/21/2024 12:53 PM CDT Vent Rate: 62 bpm RR Interval: 959 msec UT Interval: 237 msec QRS Duration: 93 msec QT Interval: 379 msec QTC Interval: 384 msec P-R-T [place]: 74 - -16 - 48 degrees IMPRESSION: SINUS RHYTHM WITH FIRST DEGREE AV BLOCK VOLTAGE CRITERIA FOR LVH ABNORMAL ECG Electronically Signed By: Rick Shaikh MD Leonel Moreno MD ECG ORDERABLES Final Result Performing Organization Address [facility] de Phone Number [facility] * XR Chest PA Lateral 2 Views (10/21/2024 9:59 AM CDT) Anatomical Region Laterality Modality Body, Chest N/A Computed Radiogr aphy 10/21/2024 10:0 9 AM CDT Impressions 10/21/2024 10:09 AM CDT NO ACUTE FINDINGS. NO CHANGE Electronically signed by: Piero Tello M.D. Narrative 10/21/2024 10:09 AM CDT EXAMINATION: XR CHEST PA LATERAL 2 VIEWS HISTORY: Aortic stenosis FINDINGS: Compared with study of 09/13/2023, heart size normal. Tortuous aorta. No infiltrates fluid or failure. Pacing device unchanged. Degeneration thoracic spine. Procedure Note Piero Tello MD - 10/21/2024 EXAMINATION: XR CHEST PA LATERAL 2 VIEWS HISTORY: Aortic stenosis FINDINGS: Compared with study of 09/13/2023, heart size normal. Tortuous aorta. No infiltrates fluid or failure. Pacing device unchanged. Degeneration thoracic spine. IMPRESSION: NO ACUTE FINDINGS. NO CHANGE Electronically signed by: Piero Tello M.D. Leonel Moreno MD IMG XR PROCEDURES Final Result * eGFR (10/21/2024 9:58 AM CDT) eGFR 71 >=60 mL/min/1. 73 m2 Comment: Interpretive Data Reference Interval Normal >/= 90 mL/min/1.73m2 Mildly decreased* 60 - 89 mL/min/1.73m2 Mildly to moderately decreased 45 - 59 mL/min/1.73m2 Moderately to severely decreased 30 - 44 mL/min/1.73m2 Severely decreased 15 - 29 mL/min/1.73m2 Kidney Failure < 15 mL/min/1.73m2 *Relative to young adult level Estimated glomerular filtration rate is determined by the 2020 CKD-EPI equation recommended by the National Kidney Foundation (A Unifying Approach to GFR Estimation: Recommendations of the NKF-ASK Task Force on Reassessing the Inclusion of Race in Diagnosing Kidney Disease, JASN 2020). The CKD-EPI equation should not be used for patients with unstable renal function and has not been validated in children and those over 70. Current interpretive data was last reviewed 2021. Blood 10/21/2024 9:58 AM CDT 10/21/2024 10:05 AM CDT Leonel Moreno MD LAB BLOOD ORDERABLES Final Resul t JACOB [address] Department of Laboratories [place], [place] [id number] * Differential, auto (10/21/2024 9:58 AM CDT) Neutrophil abs 5.81 1.50 - 6.50 K/cumm Imm gran abs 0.03 0.00 - 0.10 K/cumm [facility] Lymphocyte abs 1.61 0.80 - 3.30 K/cumm [facility] Monocyte abs 0.70 0.20 - 0.80 K/cumm [facility] Eosinophil abs 0.14 0.00 - 0.50 K/cumm [facility] Basophil abs 0.05 0.00 - 0.10 K/cumm [facility] Neutrophil pct 69.6 % [facility] Comment: Interpretive Data Percent cell count reference ranges are not reported, since discordance with absolute values may lead to misinterpretation of CBC data. Current Interpretive Data was last revised on 2017. Imm gran pct 0.4 % [facility] Comment: Interpretive Data Percent cell count reference ranges are not reported, since discordance with absolute values may lead to misinterpretation of CBC data. Current Interpretive Data was last revised on 2017. Lymphocyte pct 19.3 % [facility] Comment: Interpretive Data Percent cell count reference ranges are not reported, since discordance with absolute values may lead to misinterpretation of CBC data. Current Interpretive Data was last revised on 2017. Monocyte pct 8.4 % [facility] Comment: Interpretive Data Percent cell count reference ranges are not reported, since discordance with absolute values may lead to misinterpretation of CBC data. Current Interpretive Data was last revised on 2017. Eosinophil pct 1.7 % [facility] Comment: Interpretive Data Percent cell count reference ranges are not reported, since discordance with absolute values may lead to misinterpretation of CBC data. Current Interpretive Data was last revised on 2017. Basophil pct 0.6 % [facility] Comment: Interpretive Data Percent cell count reference ranges are not reported, since discordance with absolute values may lead to misinterpretation of CBC data. Current Interpretive Data was last revised on 2017. Blood 10/21/2024 9:58 AM CDT 10/21/2024 10:05 AM CDT us Leonel Moreno MD LAB BLOOD ORDERABLES Final Resul t JACOB [address] Department [place] [address] * (ABNORMAL) CBC with auto differential (10/21/2024 9:58 AM CDT) WBC 8.34 3.80 - 9.90 K/cumm Hgb 12.7 11.9 - 15.5 g/dL M[facility]ELINANER CH Hct 38.3 35.6 - 45.5 % [facility] Plt 237 150 - 400 K/cumm [facility] MPV 9.1 9.1 - 12.3 fL [facility] RBC 3.98 3.90 - 5.20 M/cumm [facility] MCV 96.2 81.3 - 96.4 fL [facility] MCH 31.9 27.1 - 33.3 pg [facility] MCHC 33.2 32.3 - 35.7 g/dL [facility] RDW CV 13.6 11.1 - 14.9 % [facility] RDW SD 48.5(H) 35.7 - 48.1 fL [facility] NRBC abs 0.00 0.00 - 0.01 K/cumm [facility] Blood 10/21/2024 9:58 AM CDT 10/21/2024 10:05 AM CDT Leonel Moreno MD LAB BLOOD ORDERABLES Final Resul t Performing Organization Address [facility] Co de Phone Number JACOB PERES [address] [place], [place] [id number] * aPTT (10/21/2024 9:58 AM CDT) aPTT 32 28 - 38 sec Comment: Interpretive Data Heparin therapeutic range: 66.0 - 100.0 seconds. Range based on correlation with therapeutic heparin activity range of 0.3 - 0.7 Units/mL. Current interpretive data was last revised on 2023. Blood 10/21/2024 9:58 AM CDT 10/21/2024 10:05 AM CDT Leonel Moreno MD LAB BLOOD ORDERABLES Final Resul t Performing Organization Address [facility] Co de Phone Number JACOB PERES [id number] [place], [place] [phone] * Protime-INR (10/21/2024 9:58 AM CDT) PT 11.6 9.7 - 13.0 sec INR 1.07 0.90 - 1.20 [facility] Comment: Interpretive data Oral anticoagulant therapeutic ranges: Venous thromboembolism prophylaxis or treatment: 2.0-3.0 CARDIOLOGY Standard range: 2.0-3.0 High-intensity range: 2.5-3.5 Refer to indication-specific guidelines for appropriate target ranges for prosthetic heart valve replacement. Current interpretive data was last revised on 2019. Blood 10/21/2024 9:58 AM CDT 10/21/2024 10:05 AM CDT Leonel Moreno MD LAB BLOOD ORDERABLES Final Resul t Performing Organization Address [facility] Co de Phone Number JACOB PERES [phone] [place] [address] * Type and screen (10/21/2024 9:58 AM CDT) Lulu, indirect Negative ABO Rh A Positive [facility] Blood 10/21/2024 9:58 AM CDT 10/21/2024 10:12 AM CDT Narrative [facility] - 10/21/2024 10:50 AM CDT Has the patient had Daratumumab or Isatuximab in the past 6 months?->Unknown Leonel Moreno MD LAB BLOOD BANK TEST ORDERABLES F inal Result Performing Organization Address [facility] de Phone Number JACOB PERES [address] Department [employer] [place], [place] [phone] * (ABNORMAL) Comprehensive metabolic panel (10/21/2024 9:58 AM CDT) Sodium 136 135 - 145 mmol/L Potassium, pl 4.7 3.3 - 4.9 mmol/L [facility] Chloride 101 97 - 110 mmol/L [facility] CO2 24 22 - 32 mmol/L [facility] Anion gap 11 2 - 15 mmol/L [facility] BUN 28(H) 6 - 25 mg/dL [facility] Creatinine 0.83 0.60 - 1.10 mg/dL [facility] Glucose 109 70 - 199 mg/dL [facility] Comment: Interpretive Data Fasting glucose >/= 126 mg/dl is diagnostic for diabetes. Fasting is defined as no caloric intake for at least 8 hours. Fasting glucose between 100 mg/dl to 125 mg/dl is diagnostic of prediabetes. In a patient with classic symptoms of hyperglycemia or hyperglycemic crisis, a random glucose >/= 200 mg/dl is diagnostic for diabetes. In the absence of unequivocal hyperglycemia, results should be confirmed by repeat testing. The classification and Diagnosis of Diabetes Diabetes Care 202; 46: S19-S40. Current interpretive data was last revised 2022. Calcium 9.5 8.5 - 10.3 mg/dL [facility] Bilirubin, total 0.6 0.1 - 1.2 mg/dL [facility] Protein, pl 7.4 6.5 - 8.5 g/dL [facility] Albumin 4.1 3.5 - 5.0 g/dL [facility] Alk phos 74 40 - 130 Units/L [facility] ALT 15 7 - 45 Units/L [facility] AST 28 10 - 45 Units/L [facility] Blood 10/21/2024 9:58 AM CDT 10/21/2024 10:05 AM CDT us Leonel Moreno MD LAB BLOOD ORDERABLES Final Resul t JACOB PERES [id number] Department [place] [address] * CT TAVR (09/19/2024 9:44 AM CDT) Anatomical Region Laterality Modality Chest N/A Computed Tomogra phy 09/19/2024 2:01 PM CDT Impressions 09/19/2024 3:40 PM CDT 1. Aortic annulus, and abdominal aortic, common iliac, external iliac and femoral artery measurements in preparation for TAVR procedure as described above. 2. Aortic valve calcium score: Agatston 2412, Volume 1866 mm3. 3. Asymmetric thickening of the bladder dome. Recommend correlation with cystoscopy. 4. Incompletely imaged hypoattenuating pancreatic body lesion, which could represent artifact versus an intraductal papillary mucinous neoplasm. Recommend dedicated abdominal CT pancreas protocol for further characterization. Dictated by: Jennifer Noonan MD, PhD. The radiology attending physician has personally reviewed this study, and had reviewed and/or edited this written report and agrees with it. Electronically signed by: Beau Gibson M.D. Narrative 09/19/2024 3:40 PM CDT EXAMINATION: Heart CT and CTA abdomen and pelvis with contrast. History: Severe aortic stenosis, pre-TAVR procedure. Technique: Heart CT and CT angiogram of the abdomen and pelvis performed during administration of 96 mL of Optiray 350, intravenously per TAVR Protocol. Images were transferred to an independent workstation for additional 3D post-processing. FINDINGS: Annulus and Thoracic Aortic Measurements (in systole): Aortic valve annulus: Area 490 mm2: circumference 81 mm; 29 mm maximum diameter x 21 mm minimum diameter. Sinuses of Valsalva: 34 x 35 x 33 mm Sinotubular junction: 34 x 34 mm Ascending aorta at the level of the main pulmonary artery: 39 x 40 mm. Aortic valve calcium score: Agatston 2412, Volume 1866 mm3. Coronary sinus heights: Right coronary sinus height: 27 Left coronary sinus height: 23 Non-coronary sinus height: 24 There is mild left ventricular outflow tract calcification. There is mild mitral annular calcification. Distance to RCA ostium from aortic valve annulus: 21 mm Distance to left main ostium from annulus: 15 mm Deployment angle: 11 COMORAN, 10 Caudal Coronary Arteries: Anomalous coronary artery course: No Left main atherosclerosis: Mild LAD atherosclerosis: Mild Circumflex atherosclerosis: Moderate RCA atherosclerosis: Mild Abdominal Aortic and Pelvic Arterial Smallest Diameter Measurements (made from centerline curved MPRs): Infrarenal aorta: 17 mm x 18 mm Right common iliac artery: 11 mm x 11 mm. There is Mild calcification. Left common iliac artery: 12 mm x 13 mm . There is Mild calcification. There is Moderate tortuosity of the bilateral common iliac arteries. This is more severe on the right. Right external iliac artery: 8 mm x 8 mm. There is Mild calcification. Left external iliac artery: 8 mm x 9 mm. There is Mild calcification. There is Mild tortuosity of the bilateral external iliac arteries. This is equal in distribution. Right common femoral artery: 9 mm. There is Mild calcification. Left common femoral artery: 9 mm. There is Mild calcification. There is Mild tortuosity of the bilateral femoral arteries. This is equal in distribution. Other findings: The large central airways are patent. Calcified granuloma in the right lung. There are multiple subpleural pulmonary nodules, likely subpleural lymph nodes. For reference, there is a 4 mm subpleural nodule on series 9, image 121. Bronchiectasis and reticulation in the left lower lobe. Mosaic attenuation throughout the lungs. The thyroid gland is unremarkable. Prominent paratracheal lymph node measuring 1.2 cm (series 9, image 76). The esophagus is partially decompressed. Hypoglossal nerve stimulator with generator pack in the right chest wall. The heart size is normal. There is no pericardial effusion or pericardial wall thickening. Calcifications of the aortic valve and mitral annulus. Mild calcification of the left ventricular outflow tract. Calcified and noncalcified atherosclerosis of the thoracic aorta. The hepatic parenchyma is normal without focal lesion. There is no intrahepatic or extrahepatic biliary ductal dilation. The gallbladder is unremarkable. The adrenal glands and spleen are unremarkable. There is an area of hypoattenuation within the pancreatic body, which is not well visualized (series 11, image 1). Pancreatic divisum. Right interpolar simple renal cyst. There are additional small hypoattenuating lesions within the right kidney which are too small to characterize but are favored to represent simple renal cysts. Wedge-shaped hypoattenuating areas with cortical scarring in the left lower renal pole, likely sequela of prior infarct. Asymmetric thickening of the bladder dome with a punctate focus of calcification. The uterus is unremarkable. No suspicious adnexal lesions. There is no bowel wall thickening or obstruction. Diverticulosis without diverticulitis. No suspicious lymphadenopathy in the abdomen or pelvis. No ascites or pneumoperitoneum. Tortuous abdominal aorta with mild ectasia of the infrarenal aorta. Degenerative changes of the spine. Fatty marrow in the left femur. No suspicious osseous lesions. Procedure Note Paige, Beau Lisa MD - 09/19/2024 EXAMINATION: Heart CT and CTA abdomen and pelvis with contrast. History: Severe aortic stenosis, pre-TAVR procedure. Technique: Heart CT and CT angiogram of the abdomen and pelvis performed during administration of 96 mL of Optiray 350, intravenously per TAVR Protocol. Images were transferred to an independent workstation for additional 3D post-processing. FINDINGS: Annulus and Thoracic Aortic Measurements (in systole): Aortic valve annulus: Area 490 mm2: circumference 81 mm; 29 mm maximum diameter x 21 mm minimum diameter. Sinuses of Valsalva: 34 x 35 x 33 mm Sinotubular junction: 34 x 34 mm Ascending aorta at the level of the main pulmonary artery: 39 x 40 mm. Aortic valve calcium score: Agatston 2412, Volume 1866 mm3. Coronary sinus heights: Right coronary sinus height: 27 Left coronary sinus height: 23 Non-coronary sinus height: 24 There is mild left ventricular outflow tract calcification. There is mild mitral annular calcification. Distance to RCA ostium from aortic valve annulus: 21 mm Distance to left main ostium from annulus: 15 mm Deployment angle: 11 COMORAN, 10 Caudal Coronary Arteries: Anomalous coronary artery course: No Left main atherosclerosis: Mild LAD atherosclerosis: Mild Circumflex atherosclerosis: Moderate RCA atherosclerosis: Mild Abdominal Aortic and Pelvic Arterial Smallest Diameter Measurements (made from centerline curved MPRs): Infrarenal aorta: 17 mm x 18 mm Right common iliac artery: 11 mm x 11 mm. There is Mild calcification. Left common iliac artery: 12 mm x 13 mm . There is Mild calcification. There is Moderate tortuosity of the bilateral common iliac arteries. This is more severe on the right. Right external iliac artery: 8 mm x 8 mm. There is Mild calcification. Left external iliac artery: 8 mm x 9 mm. There is Mild calcification. There is Mild tortuosity of the bilateral external iliac arteries. This is equal in distribution. Right common femoral artery: 9 mm. There is Mild calcification. Left common femoral artery: 9 mm. There is Mild calcification. There is Mild tortuosity of the bilateral femoral arteries. This is equal in distribution. Other findings: The large central airways are patent. Calcified granuloma in the right lung. There are multiple subpleural pulmonary nodules, likely subpleural lymph nodes. For reference, there is a 4 mm subpleural nodule on series 9, image 121. Bronchiectasis and reticulation in the left lower lobe. Mosaic attenuation throughout the lungs. The thyroid gland is unremarkable. Prominent paratracheal lymph node measuring 1.2 cm (series 9, image 76). The esophagus is partially decompressed. Hypoglossal nerve stimulator with generator pack in the right chest wall. The heart size is normal. There is no pericardial effusion or pericardial wall thickening. Calcifications of the aortic valve and mitral annulus. Mild calcification of the left ventricular outflow tract. Calcified and noncalcified atherosclerosis of the thoracic aorta. The hepatic parenchyma is normal without focal lesion. There is no intrahepatic or extrahepatic biliary ductal dilation. The gallbladder is unremarkable. The adrenal glands and spleen are unremarkable. There is an area of hypoattenuation within the pancreatic body, which is not well visualized (series 11, image 1). Pancreatic divisum. Right interpolar simple renal cyst. There are additional small hypoattenuating lesions within the right kidney which are too small to characterize but are favored to represent simple renal cysts. Wedge-shaped hypoattenuating areas with cortical scarring in the left lower renal pole, likely sequela of prior infarct. Asymmetric thickening of the bladder dome with a punctate focus of calcification. The uterus is unremarkable. No suspicious adnexal lesions. There is no bowel wall thickening or obstruction. Diverticulosis without diverticulitis. No suspicious lymphadenopathy in the abdomen or pelvis. No ascites or pneumoperitoneum. Tortuous abdominal aorta with mild ectasia of the infrarenal aorta. Degenerative changes of the spine. Fatty marrow in the left femur. No suspicious osseous lesions. IMPRESSION: 1. Aortic annulus, and abdominal aortic, common iliac, external iliac and femoral artery measurements in preparation for TAVR procedure as described above. 2. Aortic valve calcium score: Agatston 2412, Volume 1866 mm3. 3. Asymmetric thickening of the bladder dome. Recommend correlation with cystoscopy. 4. Incompletely imaged hypoattenuating pancreatic body lesion, which could represent artifact versus an intraductal papillary mucinous neoplasm. Recommend dedicated abdominal CT pancreas protocol for further characterization. Dictated by: Jennifer Noonan MD, PhD. The radiology attending physician has personally reviewed this study, and had reviewed and/or edited this written report and agrees with it. Electronically signed by: Beau Gibson M.D. us Leonel Moreno MD IMG CT PROCEDURES Final Result * POCT creatinine for contrast evaluation (09/19/2024 9:15 AM CDT) Creatinine, POC 0.9 0.6 - 1.3 mg/dL Blood 09/19/2024 9:15 AM CDT Leonel Moreno MD POINT OF CARE TEST ORDERABLES Fi nal Result from Last 3 Months Insurance MEDICARE [employer] INSURANCE MED[place] [id number] MEDICARE [employer] [place] [id number] [employer] [id number] [place] [address] Advance Directives For more information, please contact: [phone] * Full Code (Latest Code Status on File) Date Activated Date Inactivated Comments 12/08/2017 8:54 AM 12/08/2017 1:10 PM Care Teams Molder Hand Relationship Specialty Start Date End Date Handy Lara MD [address] [facility] [address] [place] [address] PCP - General Family Medicine 06/18/24
--- OUTSIDE RECORDS SUMMARY | 2024-12-13 08:44 | XMS_ITS | Encounter Summary ---
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
--- OUTSIDE RECORDS SUMMARY | 2024-12-13 08:44 | XMS_ITS | Clinical Summary ---
Author Organization [facility] Address [address] [place] [id number] Care Team Providers Care Senior Dentist Name Role Phone Unavailable Primary Care Provider [...] Td Vaccines ( 1 - Tdap) 1962 Pneumococcal Vaccine: 50+ Ye ars (1 of 1 - PCV) 1993 Zoster Vaccines (1 of 2) 1993 Dexa Scan (General) 2008 RSV Immunization or 60+ Years (1 [...]
--- OUTSIDE RECORDS SUMMARY | 2024-12-13 08:44 | XMS_ITS | Encounter Summary ---
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 Please read and complete/answer the following questions. There are no right or wrong answers. Please rob or indicate the answer that best applies to you. 1. Heart failure affects different people in different ways. Some feel shortness of breath while others feel fatigue. Please indicate how much you are limited by heart failure (shortness of breath orfatigue) in your ability to do the following activities over the past 2 weeks. Activities: Extremely Limited (1) Quite a bit limited (2) Moderately Limited (3) Slightly Limited (4) Not at all limited (5) Limited for other reasons or does not apply (6) Showering/Bathing X Walking 1 block of level ground X Hurrying or jogging (as if to catch a bus) X 2. Over the past 2 weeks, how many times did you have swelling in your feet, ankles or legs when you woke up in the morning? Every Morning (1) 3 or more times a week (2) 1-2 times a week (3) Less than once a week (4) Never in the past 2 weeks (5) XX 3. Over the past 2 weeks, on average, how many times has fatigue limited your ability to do what you wanted? All of the time (1) Several times a day (2) At least once a day (3) 3 or more times a week but not every day (4) 1-2 times per week (5) Less than once a week (6) Never over the past 2 weeks (7) X 4. Over the past 2 weeks, on average, how many times has shortness of breath limited your ability to do what you wanted? All of the time (1) Several times a day (2) At least once a day (3) 3 or more times a week but not every day (4) 1-2 times per week (5) Less than once a week (6) Never over the past 2 weeks (7) X 5. Over the past 2 weeks, on average, how many times have you been forced to sleep sitting up in a chair or with at least 3 pillows to prop you up because of shortness of breath? Every Night (1) 3 or more times a week (2) 1-2 times a week (3) Less than once a week (4) Never in the past 2 weeks (5) X 6. Over the past 2 weeks, how much has your heart failure limited your enjoyment of life? Extremely Limited (1) Quite a bit limited (2) Moderately Limited (3) Slightly Limited (4) Not at all limited (5) X 7. If you had to spend the rest of your life with your heart failure the way it is right now, how would you feel about this? Not at all satisfied (1) Mostly dissatisfied (2) Somewhat satisfied (3) Mostly satisfied (4) Completely satisfied (5) X 8. How much does your heart failure affect your lifestyle? Please indicate how your heart failure may have limited your participation in the following activities over the past 2 weeks. 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 Visiting family or friends outside of the home X documented in this encounter Plan of Treatment Not on file documented as of this encounter Visit Diagnoses Not on filedocumented in this encounter Care Teams Clarity Developer Relationship Specialty Start Date End Date Handy Lara MD [address] [facility] [address] [address] PCP - General Family Medicine 06/18/24 documented as of this encounter
[2024-12-13 09:06] LABS: Estimated Glomerular Filt Rate 53
== END 2024-12-13 08:40 | disposition home or self-care (01) ==
PROVIDERS: PCP Student in an Organized Health Care Education/Training Program; Visit Provider Nurse Practitioner Family
DX: N20.0 Calculus of kidney (principal); N28.1 Cyst of kidney, acquired; K86.9 Disease of pancreas, unspecified; R31.29 Other microscopic hematuria
CPT/HCPCS: 74178; Q9967

== ENCOUNTER 2025-04-22 10:07 | Outpatient (CLI) | payer MEDICARE, SELFPAY ==
--- NOTE | 2025-04-22 10:19 | ECG_ITS ---
Test Date: 2025-04-22 10:24:42 Measurements Intervals [place] Rate: 66 P: 72 WV: 243 QRS: -46 QRSD: 148 T: 29 QT: 419 QTc: 440 Interpretive Statements SINUS RHYTHM WITH FIRST DEGREE AV BLOCK WITH OCCASIONAL VENTRICULAR PREMATURE COMPLEXES RIGHT BUNDLE BRANCH BLOCK LEFT ANTERIOR FASCICULAR BLOCK VOLTAGE CRITERIA FOR LVH CANNOT R/O SEPTAL INFARCT, AGE INDETERMINATE ABNORMAL ECG No previous ECG available for comparison Electronically Signed On 04-22-2025 19:20:23 CHICKEN CATCHER by Deejay Stokes D.O.
--- OUTSIDE RECORDS SUMMARY | 2025-04-22 10:44 | XMS_ITS | Clinical Summary ---
Author Organization [facility] Address [address] [place] [address] Care Team Providers Care Wardrobe Attendant Name Role Phone Unavailable Primary Care Provider [...] - 1-dose 75+ series) 2018 COVID-19 Vaccine (2024-2 6 season) 2024 Influenza Adult (#1) 2025 Hepatitis A Vaccines Aged Out No long er eligible based on patient's age to complete this topic Meningococcal B Vaccine Aged Out No l onger eligible based on patient's age to complete this topic Meningococcal Vaccine Aged Out No bree enrico eligible based on patient's age to complete this topic RSV Immunizations Under 20 Months Aged Out No longer eligible based on patient's age to complete this topic
--- OUTSIDE RECORDS SUMMARY | 2025-04-22 10:44 | XMS_ITS | Encounter Summary ---
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 Visiting family or friends outside of the home X documented in this encounter Plan of Treatment Not on file documented as of this encounter Visit Diagnoses Not on filedocumented in this encounter Care Teams Equine Vet Relationship Specialty Start Date End Date Handy Lara MD [address] [facility] [address] [address] PCP - General Family Medicine 06/18/24 documented as of this encounter
--- OUTSIDE RECORDS SUMMARY | 2025-04-22 10:44 | XMS_ITS | Encounter Summary ---
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 Gender Identity Not on file Sexual Orientation Not on file Occupation Industry Job Start Date Job End Date [employer] Not on file Not on file Not on file documented as of this encounter Plan of Treatment Not on file documented as of this encounter Procedures Procedure Name Priority Date/Time Associated Diagnosis Comments SCAN - LABS 01/27/2025 documented in this encounter Results * SCAN - LABS (01/27/2025) us Provider Scanning Final Result documented in this encounter Visit Diagnoses Not on filedocumented in this encounter Care Teams Pattern Cleaner Relationship Specialty Start Date End Date Handy Lara MD [address] [facility] [address] [place] [address] PCP - General Family Medicine 06/18/24 documented as of this encounter
--- OUTSIDE RECORDS SUMMARY | 2025-04-22 10:44 | XMS_ITS | Encounter Summary ---
Author Organization [facility] Address [address] [facility] [address] [place] [address] Care Team Providers Care Metal Weigher Name Role Phone Gosia Bustamante MD Primary Care Provider Handy Lara MD Primary Care Provider Encounter Details Date Type Department Care Team (Late st Contact Info) Description 05/10/2016 Orders Only [facility] ProviderAudrey MD [address] [place] [address] Social History Tobacco Use Types Packs/Day Years Used Date Smoking Tobacco: Never Alcohol Use Standard Drinks/Week Comments No 0 (1 standard drink = 0.6 oz pur e alcohol) Comments Unknown Sex and Gender Information Value Date Recorded Sex Assigned at Not on file Legal Sex Female 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
--- OUTSIDE RECORDS SUMMARY | 2025-04-22 10:44 | XMS_ITS | Clinical Summary ---
Author Organization [facility] Address [address] 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 03/04/2016 Active Active Problems Problem Noted Date [...] on file Legal Sex Female 12:53 AM TABLET REPAIR Gender Identity Not on file Sexual Orientation Not on file Last Filed Vital Signs Vital Sign Reading Time Taken Comments Blood Pressure 128/81 03/08/2016 8:17 AM TABLET REPAIR Pulse 71 03/08/2016 6:51 AM TABLET REPAIR Temperature 36.9 C (98.5 F) 03/08/2016 6:51 AM TABLET REPAIR Respiratory Rate 14 03/08/2016 6:51 AM TABLET REPAIR Oxygen Saturation - - Inhaled Oxygen Concentration - - Weight 104.1 kg (229 lb 9.6 oz) 03/08/2016 3:45 AM TABLET REPAIR Height 170.2 cm (5' 7) 03/05/2016 12:0 0 AM TABLET REPAIR Body Mass Index 35.96 03/05/2016 12:00 AM TABLET REPAIR Plan of Treatment Health Maintenance Due Date Last Done Comments DTAP/TDAP/TD VACCINES (1 - Tdap) 1962 PNEUMOCOCCAL VACCINE 50+ YEARS (1 of 1 - PCV) 06/06/18 94 ZOSTER VACCINE (1 of 2) 1993 OSTEOPOROSIS SCREENING 2008 RSV VACCINE (60+ or ) (1 - 1-dose 75+ series) 2018 INFLUENZA VACCINE (#1) 2024 Care Teams Bombsight Specialist Relationship Specialty Start Date End Date Non-Staff, Physician NO ADDRESS ON FILE PCP - General 03/04/16
--- OUTSIDE RECORDS SUMMARY | 2025-04-22 10:44 | XMS_ITS | Clinical Summary ---
Author Organization [facility] [address] Address [address] [place] [address] Care Team Providers Care Ensemble Member Name Role Phone Handy Lara MD Primary [...] total) by mouth every morning 06/21/2022 Active lubiprostone (AMITIZA) 24 mcg capsule Take [...] (02/16/2021 9:51 AM CDT): Hearing test - [facility] Will obtain imaging from [facility] from December 2019 Vestibular dysfunction of both ears 02/16/2021 Assessment & Plan (02/16/2021 12:22 PM CDT): Hearing test and Balance testing (VNG) - [facility] Will obtain imaging from [facility] from December 2019 Neck pain on right side 01/04/2021 Assessment & Plan (01/04/2021 3:24 PM CDT): Ms. 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 Will review MRI cervical spine with [...] (10/31/2017): Added automatically from request for surgery [id number] Dizziness 10/18/2017 Labile essential hypertension 12/06/2016 Assessment & Plan (01/04/2021 3:29 PM CDT): Today's reading with automated machine: Left arm: 162/101 Repeat: 172/111 Instructed to call PCP to further discuss and to continue to monitor her home readings. Chronic fatigue 12/06/2016 Unknown and unspecified causes of morbidity 08/23 Overview (09/16/2016): Labile hypertension Coronary artery disease invo [place]ving [place] coronary artery of [place] heart without angina pectoris 03/30/2016 Overview (07/28/2016): Coronary artery disease involving [place] coronary artery of [place] heart without angina pectoris Acute cystitis without [...] spasm 03/08/20162023 NSTEMI, initial episode of care ([facility]) 03/04/2016 10/07/2021 Dyslipidemia 10/16/2015 10/07/2021 Overview (07/29/2016): Mixed dyslipidemia Encounters Date Type Department Care Team Description 03/26/2025 Telephone [facility] Cardiology [address] [place] [address] Toy Reynoso MD 03/26/2025 Telephone [facility] Cardiology [address] [facility] [address] [phone] Toy Reynoso MD 03/25/2025 Telephone [facility] Cardiology at [address] [place] [address] Toy Reynoso MD 03/05/2025 12:50 PM LINE APPLIANCE ASSEMBLER Clinical Support [facility] Bone Health [address] [facility] [address], [address] [place] [phone] Post-menopausal (Primary Dx); Age related osteoporosis, unspecified pathological fracture presence; Graves disease; Hyponatremia; Nephrolithiasis; Other specified disorders of bone density and structure, left thigh; halfway current use of anticoagulant 03/05/2025 10:00 AM LINE APPLIANCE ASSEMBLER Office Visit [facility] Endocrinology Metabolism and Lipid [address] [facility] 13th [place] [address] [place] [address] Cooper Diaz MD Graves disease (Primary Dx); Diabetes mellitus type 2, noninsulin dependent (HCC); DEANA (obstructive sleep apnea); Daytime hypersomnia; Secondary oligomenorrhea; Acanthosis nigricans; Hirsutism; Acne vulgaris; PCOS (polycystic ovarian syndrome); Chronic midline low back pain, unspecified whether sciatica present; Age-related osteoporosis without current pathological fracture; Hyponatremia; Orthostatic hypotension; Supine hypertension 03/05/2025 Results Follow-Up [facility] Endocrinology Metabolism and Lipid [address] [facility] 13th [place] [address] [place] [address] Cooper Diaz MD Dexa TBS Axial and Forearm Bone Density Scan 02/19/2025 8:30 AM CDT Office Visit [facility] Medical [facility] Cardiology [address] [address] [address] [place] [address] Toy Reynoso MD S/P TAVR (transcatheter aortic valve replacement) (Primary Dx); PVC's (premature ventricular contractions); Mixed hyperlipidemia; Benign hypertension; Coronary artery disease involving [place] coronary artery of [place] heart without angina pectoris 02/18/2025 Orders Only [facility] Endocrinology Metabolism and Lipid [address] [facility] 13th Floor [address] [place] [phone] ProviderAudrey MD 02/04/2025 Telephone [facility] Endocrinology Metabolism and Lipid [address] [facility] [address] [place] [address] Rochelle Cobb RN return appointments 01/31/2025 Documentation [facility] Endocrinology Metabolism and Lipid [address] [facility] 13th Floor [address] [place] [phone] Cooper Diaz MD 01/27/2025 Orders Only [facility] Scanning, Provider 01/22/2025 Documentation [facility] Endocrinology Metabolism and Lipid [address] [facility] [address] [place] [address] [place] [address] Betina Cobb RN Lab Results 01/22/2025 Orders Only [facility] Endocrinology Metabolism and Lipid [address] [facility] 13 Floor [address] [place] [phone] Provider, MD Audrey from Last 3 Months Immunizations Immunization Administration [...] ANGIOGRAPHY AND WITH OR WITHOUT LEFT VENTRICULOGRAM [id number]; Surgeon: Leonel Moralez MD; Location: CARDIAC WEAVE ROOM SUPERVISOR; Service: Cardiovascular; Laterality: N/A; Pt will be having an echo in the holding area precath as well same day CARDIAC CATHETERIZATION 09/05/2024 N/A Procedure: ULTRASOUND GUIDANCE FOR VASCULAR ACCESS S&I [id number]; Surgeon: Leonel Moralez MD; Location: CARDIAC WEAVE ROOM SUPERVISOR; Service: Cardiovascular; Laterality: N/A; OTHER SURGICAL HISTORY Inspire device for sleep apnea CARDIAC CATHETERIZATION 10/28/2024 Chest/N/A Procedure: TAVR - PERCUTANEOUS FEMORAL [id number]; Surgeon: Leonel Moralez MD; Location: CARDIAC WEAVE ROOM SUPERVISOR; Service: Cardiovascular; Laterality: N/A; Medical devices from this surgery are in the Medical Devices section. Medical History Medical History Date Comments Hypertension Hypertension Hypothyroidism Hypothyroidism Adiposity Obesity Heart murmur Depression Sleep disorder Hypercholesteremia Hearing loss Bronchitis Kidney stone Arthritis Allergic rhinitis Vitamin D deficiency Coronary artery disease invo [place]ving [place] coronary artery of [place] heart without angina pectoris 03/30/2016 Coronary artery disease invo [place]ving [place] coronary artery of [place] heart without angina pectoris PVC's (premature ventricular contractions) 10/16/2015 PVC's (premature ventricular contractions) Asymmetric septal hypertrophy 2018 Nonrheumatic aortic valve stenosis 12/11/2018 Mixed hyperlipidemia 04/01/2021 Coronary artery spasm 03/08/2016 Hypotension 03/04/2016 Sensorineural hearing loss ( SNHL) of both ears 02/16/2021 Vestibular dysfunction of both ears 02/16/2021 Right-sided low back pain wi thout sciatica 01/04/2021 DEANA on CPAP 10/16/2015 has Inspire micaela ce, no longer wears CPAP Chronic fatigue 12/06/2016 Right lower lobe pneumonia Graves disease 05/30/2023 Heart disease GERD (gastroesophageal reflux disease) Anemia Aortic stenosis Ventricular bigeminy seen on behavioral intervention specialist holter monitor Ventricular trigeminy seen on ho [...] Depression Daughter Richardson Jack Heart attack Father MD; Cause of De ath: MD Hearing loss Mother Valery Heart attack Mother Valery MD; Cause of De ath: MD Thyroid disease Mother Valery Heart disease Sister [...] file Legal Sex Female 2:26 AM LINE APPLIANCE ASSEMBLER Gender Identity Not on file Sexual Orientation Not on file Occupation Industry Job Start Date Job End Date [employer] Not on file Not on file Not [...] Sign Reading Time Taken Comments Blood Pressure 191/79 03/05/2025 9:31 AM LINE APPLIANCE ASSEMBLER standing is 123/64, 2nd standing is 116/76. Pulse 85 03/05/2025 9:31 AM LINE APPLIANCE ASSEMBLER 89 standing both times Temperature 36.8 C (98.2 F) 03/05/2025 9:31 AM LINE APPLIANCE ASSEMBLER Respiratory Rate 18 10/29/2024 11:3 5 AM CDT Oxygen Saturation 96% 02/19/2025 8:3 3 AM CDT Inhaled Oxygen Concentration - - Weight 71.7 kg (158 lb) 03/05/2025 12:2 9 PM LINE APPLIANCE ASSEMBLER Height 161.1 cm (5' 3.43) 03/05/2025 1 2:29 PM LINE APPLIANCE ASSEMBLER Body Mass Index 27.61 03/05/2025 12:29 PM LINE APPLIANCE ASSEMBLER Plan of Treatment Health Maintenance Due Date Last Done Comments Albumin Creatinine Ratio, Urine 1945 Hemoglobin A1C 1945 Osteoporosis Screening-Bone Density Scan 1945 Dilated Eye Exam 1945 Foot Exam 1945 DTaP/Tdap/Td Vaccine (1 - Tdap) 1954 Hepatitis B Screening 1961 Well Visit 65+ 2008 Zoster Vaccine (2 of 3) 09/21/2014 07/27/2014 Depression Screening 01/04/2022 01/04/2021, 01/05/20 21 Influenza Vaccine (#1) 2024 9, 02/03/2018, 01/25/2017, Additional history exists Lipid Panel 12/27/2024 12/28/2023, 05/26, 09/22/2022, Additional history exists Fall Risk Assessment 10/29/2025 10/29/2024 eGFR 10/29/2025 10/29/2024, 10/21/2024 Pneumococcal vaccine 65+ Completed 02/23/2017, 12/23 Medical Devices Implanted Type Area Bingo Usher Device Identifier Shelf Expiration Date Model / Serial / Lot [employer] Lead Neurostimulator Sleep Apnea Thoracic Permanent Respiratory Sensing Inspire 43cm 4340 - [id number] - [id number] Implanted:Qty: 1 on 09/13/2023 by Lizzy Lazaro MD at [facility] Right: Chest [employer] 01/30/2026 4340 / [id number] / [employer] Inspire 3 Electrode Cuff Tunnel Juan Lead Neurostimulator Sterile 4063 - [id number] - [id number] Implanted:Qty: 1 on 09/13/2023 by Lizzy Lazaro MD at [facility] Right: Neck [employer] 12/18/2025 4063 / [id number] / [employer] Inspire Generator 3028 - [id number] - [id number] Implanted:Qty: 1 on 09/13/2023 by Lizzy Lazaro MD at [facility] Right: Chest [employer] 07/28/2025 3028 / [id number] / [employer] V[employer] System Closure Repair Femoral Artery Suture Mediated Perclose Prostyle 45560-82 - [id number] Implanted:Qty: 1 on 10/28/2024 by Leonel Moralez MD at [facility] [employer] 08/21/2026 1 2773-03 / / [id number] V[employer] V[employer] System Closure Repair Femoral Artery Suture Mediated Perclose Prostyle 02639-17 - [id number] Implanted:Qty: 1 on 10/28/2024 by Leonel Moralez MD at [facility] [employer] 08/21/2026 1 2773-03 / / [id number] Access [employer] Inc Device 10ml 5fr Closure Mynx Control 2 Mode Balloon Catheter [id number] - [id number] Implanted:Qty: 1 on 10/28/2024 by Leonel Moralez MD at [facility] [employer] 09/12/2026 [id number] / / [id number] Procedures Procedure Name Priority Date/Time Associated Diagnosis Comments DEXA TBS AXIAL AND FOREARM BONE DENSITY SCAN Schedule Routine, Read Routine (OP Routine) 03/05/2025 1:33 PM LINE APPLIANCE ASSEMBLER Age related osteoporosis, unspecified pathological fracture presence Graves disease Hyponatremia Nephrolithiasis T3, FREE Routine 02/18/2025 3:59 PM CDT SCAN - LABS 01/27/2025 COMPREHENSIVE METABOLIC PANEL Routine 01/22/2025 2:44 PM CDT TSH Routine 01/22/2025 2:44 PM CDT URINALYSIS, MACROSCOPIC Routine 01/22/2025 2:44 PM CDT CBC WITHOUT DIFFERENTIAL Routine 01/22/2025 2:42 PM CDT COMPREHENSIVE METABOLIC PANEL Routine 01/22/2025 2:42 PM CDT TSH Routine 01/22/2025 2:42 PM CDT URINALYSIS, MACROSCOPIC Routine 01/22/2025 2:42 PM CDT EGFR Routine 10/29/2024 4:25 AM CDT POCT LIPID PANEL Routine 12/28/2023 11:0 8 AM CDT Coronary artery disease involving [place] coronary artery of [place] heart without angina pectoris from Last 3 Months or Most Recently Relevant to Health Maintenance Results * Dexa TBS Axial and Forearm Bone Density Scan (03/05/2025 1:33 PM LINE APPLIANCE ASSEMBLER) Anatomical Region Laterality Modality Wrist, Body N/A Radiographic Keely ging Narrative 03/05/2025 2:00 PM LINE APPLIANCE ASSEMBLER Patient Name: Kaylie Logan Date of : 1945 Date of scan: 03/05/2025 Bone mineral density was performed on a [employer] Discovery Densitometer. Based on machine cross-calibration and precision studies the least significant changes of this densitometer is 0.024 g/cm2 at the spine, 0.020 g/cm2 at the total proximal femur, and 0.014g/cm2 at the forearm. HISTORY: This is a 79 y.o. postmenopausal female with a history of low bone mass and thyroid disease. She reports that she has never smoked. She has never used smokeless tobacco. Currently on treatment with vitamin D and anticoagulants, previously treated with thyroid hormone, and current complaint of arm pain, back pain, neck pain, and leg pain. INDICATIONS: Menopause status and history of low bone mass. FINDINGS: BONE MINERAL DENSITY OF THE LUMBAR SPINE Bone Mineral Density (BMD) of the lumbar spine was measured from L1-L4 and the average density was calculated to be 1.213 gm/cm2. This corresponds to a T-score (standard deviations from the mean of young adults) of 1.5. There is no previous study available for comparison. BONE MINERAL DENSITY OF THE PROXIMAL FEMUR Bone Mineral Density (BMD) of the left hip total was found to be 0.787 gm/cm2. This corresponds to a T-score standard deviations from the mean of young adults of -1.3. Femoral neck is 0.744 gm/cm2 with a T-score (standard deviations from the mean of young adults) of -0.9. There is no previous study available for comparison. BONE MINERAL DENSITY OF THE FOREARM Bone Mineral density (BMD) of the left proximal 1/3 of the radius measures 0.657 gm/cm2. This corresponds to a T-score (standard deviations from the mean of young adults) of -0.6. There is no previous study available for comparison. A forearm bone density study was performed in addition to the routine study due to physician request. SUMMARY: Bone mineral density shows evidence of low bone mass at the proximal femur and moderately increased fracture risk (Osteopenia). ADDITIONAL COMMENTS: Postmenopausal Women and Men Over 50: Diagnostic criteria: Osteoporosis: BMD at or below -2.5 T-score; Osteopenia (low bone mass): BMD between -1.0 and -2.5 T-score. If the patient has a history of a fragility fracture, a fracture that occurred with trauma equivalent to a fall from a standing position or less, then the diagnosis is osteoporosis regardless of bone density. The history and data sections of the bone mineral density scan were prepared by Lucy Soto(Mikayla)(Latanya)(ERIN) [employer]Alvin who is accredited by the International Society of Clinical Densitometry. The overall patient assessment and scan interpretation were performed by Elham Giron M.D. who is certified by the International Society of Clinical Densitometry. [id number] Cooper Diaz MD IMG DXA PROCEDURES Final Re sult * T3, free (02/18/2025 3:59 PM CDT) Blood Historical Provider LAB BLOOD ORDERABLES Zoila l Result [facility] [address] [phone] * SCAN - LABS (01/27/2025) Provider Scanning Final Result * Urinalysis, macroscopic Urine (01/22/2025 2:44 PM CDT) Urine Historical Provider MD LAB MICROBIOLOGY - GENERA L ORDERABLES Final Result * TSH (01/22/2025 2:44 PM CDT) Blood Result [facility] MD LAB BLOOD ORDERABLES Zoila l Result Performing Organization Address [facility] Co de Phone Number EXTERNAL LAB * Comprehensive metabolic panel (01/22/2025 2:44 PM CDT) Blood Result [facility] MD LAB BLOOD ORDERABLES Zoila l Result Performing Organization Address [facility] de Phone Number EXTERNAL LAB * Urinalysis, macroscopic Urine (01/22/2025 2:42 PM CDT) Urine Result [facility] MD LAB MICROBIOLOGY - GENERA L ORDERABLES Final Result * CBC without differential (01/22/2025 2:42 PM CDT) Blood Result [facility] MD LAB BLOOD ORDERABLES Zoila l Result Performing Organization Address [facility] de Phone Number EXTERNAL LAB * TSH (01/22/2025 2:42 PM CDT) Blood Result [facility] MD LAB BLOOD ORDERABLES Zoila l Result * Comprehensive metabolic panel (01/22/2025 2:42 PM CDT) Blood Result [facility] MD LAB BLOOD ORDERABLES Zoila l Result * eGFR (10/29/2024 4:25 AM CDT) eGFR [...] AM CDT 10/29/2024 4:57 AM CDT Leonel Moralez MD LAB BLOOD ORDERABLES Final Resul t [facility] [address] [address] Department of Laboratories [place], [place] [id number] * POCT lipid panel (12/28/2023 11:08 AM CDT) Cholesterol, POC 158 mg/dL HDL, POC 68 mg/dL Triglycerides, POC 91 mg/dL LDL Cholesterol POC 72 mg/dL Chol/HDL Ratio, POC 1.0 Non-HDL Cholesterol, POC 90 mg/dL Cholesterol Total, POC 158 mg/dL Capillary blood 12/28/2023 1 1:08 AM CDT us Toy Reynoso MD POINT OF CARE TEST ORDERA BLES Final Result from Last 3 Months or Most Recently Relevant to Health Maintenance Insurance MEDICARE [employer] MEDICARE [employer] MEDICARE [employer] ANEL Stephen [id number] [place] MEDICARE Advance Directives For more information, please contact: [phone] * Full Code (Latest Code Status on File) Date Activated Date Inactivated Comments 12/08/2017 8:54 AM 12/08/2017 1:10 PM Care Teams Ensemble Member Relationship Specialty Start Date End Date Handy Lara MD [address] [facility] [address] [facility] [address] [place] [address] PCP - General Family Medicine 06/18/24
--- OUTSIDE RECORDS SUMMARY | 2025-04-22 10:44 | XMS_ITS | Encounter Summary ---
Author Organization [facility] Address [address] [place] [address] Phone Care Team Providers Care Deblocker Name Role Phone Gosia Bustamante MD Primary [...] on file Legal Sex Female 2:26 AM RADIO INTELLIGENCE OPERATOR Gender Identity Not on file Sexual Orientation Not on file Occupation Industry Job Start Date Job End Date [employer] Not on file Not on file Not [...] on filedocumented in this encounter Care Teams Deblocker Relationship Specialty Start Date End Date Gsoia Bustamante MD [address] [place] [address] PCP - General 05/09/12 06/17/24 Handy Lara MD [address] [place] [address] PCP - General Family Medicine 06/18/24 documented as of this encounter
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
--- OUTSIDE RECORDS SUMMARY | 2025-04-22 10:44 | XMS_ITS | Encounter Summary ---
Author Organization [facility] Address [address] [place] [address] Phone Care Team Providers Care Diagrammer And Seamer Name Role Phone Gosia Bustamante MD Primary [...] on file Legal Sex Female 2:26 AM CONTENT PRODUCER Gender Identity Not on file Sexual Orientation Not on file Occupation Industry Job Start Date Job End Date [employer] business Not on file Not on file [...] on filedocumented in this encounter Care Teams Diagrammer And Seamer Relationship Specialty Start Date End Date Rostovtseva, Gosia Y., MD [address] [place] [address] PCP - General 05/09/12 06/17/24 Handy Lara MD [address] [place] [address] PCP - General Family Medicine 06/18/24 documented as of this encounter
--- OUTSIDE RECORDS SUMMARY | 2025-04-22 10:44 | XMS_ITS | Encounter Summary ---
Author Organization [facility] Address [address] [place] [address] Phone Care Team Providers Care Home Health Aide Name Role Phone Handy Lara MD Primary Care Provider Encounter Details Date Type Department Care Team (Latest Contact Info) Description 03/05/2025 Results Follow-Up [facility] Endocrinology Metabolism and Lipid [address] [facility] [address] [place] [address] [place] [id number] Cooper Diaz MD [address] [place] [address] Dexa TBS Axial and Forearm Bone Density Scan Social History Tobacco Use Types Packs/Day Years [...] on file Legal Sex Female 2:26 AM SAFETY RISK LEAD Gender Identity Not on file Sexual Orientation Not on file Occupation Industry Job Start Date Job End Date [employer] Not on file Not on file Not on file documented as of this encounter Miscellaneous Notes * Result Encounter Note - Cooper Diaz MD - 03/05/2025 3:56 PM SAFETY RISK LEAD Given risks for low bone density, these results are good and do NOT meet criteria for osteoporosis. TY RISK LEAD documented in this encounter Plan of Treatment Not on file documented as of this encounter Visit Diagnoses Not on filedocumented in this encounter Care Teams Home Health Aide Relationship Specialty Start Date End Date Handy Lara MD [address] [facility] [address] [place] [address] PCP - General Family Medicine 06/18/24 documented as of this encounter
--- OUTSIDE RECORDS SUMMARY | 2025-04-22 10:44 | XMS_ITS | Encounter Summary ---
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
== END 2025-04-22 10:08 | disposition home or self-care (01) ==
PROVIDERS: PCP Student in an Organized Health Care Education/Training Program; Visit Provider Urology
DX: R94.31 Abnormal electrocardiogram [ECG] [EKG] (principal); E78.2 Mixed hyperlipidemia
CPT/HCPCS: 93005